=== PATIENT | male | born 1940 | race Caucasian/White ===

== ENCOUNTER 2018-05-28 10:30 | Inpatient (IN) | payer MEDICAID, MEDICARE, OTHER ==
[2018-05-28] VITALS (8 sets, daily range): BP systolic 140–153; BP diastolic 64–72; PULSE 44–95; RESP 18–20; Ht 170.2 cm; Wt 60.3 kg
[~2018-05-28] VITALS: Ht 170.2 cm; Wt 60.3 kg
--- NOTE | 2018-05-28 11:44 | ERD ---
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 Reportedly they were feeding him and his saturations dropped to 87%. Per EMS patient was stable in the field, does not however they needed to bag him to keep his saturations up. Normally the patient does not need a vent and does not need to be bagged. Otherwise history is limited as the patient is nonverbal. ROS Limited as the patient is nonverbal Medications Home Meds Reported Medications Amoxicillin/Potassium Clav* (Augmentin*) 250 Mg/5 Ml Susp.recon, 10 MG PO Q8, #1 BOTTLE STARTED 05-27-18 FOR 7 DAYS 05/28/18 Hydrocodone Bit-Acetaminophen* (Lortab* Liq) 7.5 Mg-325 Mg/15 Ml Solution, 15 ML GTB TID PRN for PAIN, ML 05/28/18 Levothyroxine Sodium* (Levoxyl*) 100 Mcg Tablet, 100 MCG PO BEFORE BREAKFAST, #30 TAB 05/28/18 Tamsulosin Hcl* (Tamsulosin Hcl*) 0.4 Mg Cap.er.24h, 0.4 MG PO HS, CAP 05/28/18 Allergies Allergies: Coded Allergies: No Known Allergy (Unverified , 05/28/18) PMhx/Soc History of Surgery: Yes (Tracheostomy, PEG placement) Anesthesia Reaction: No Hx Neurological Disorder: No Hx Respiratory Disorders: Yes (Laryngeal cancer status post tracheostomy) Hx Cardiac Disorders: No Hx Psychiatric Problems: No Hx Miscellaneous Medical Probl: Yes (Laryngeal cancer, squamous cell carcinoma vocal cord, severe protein calorie malnutrition) Hx Alcohol Use: No Hx Substance Use: No Hx Tobacco Use: No Smoking Status: Never smoker FmHx Unable to obtain Physical Exam Vitals Vital Signs Date Temp Pulse Resp B/P (MAP) Pulse Ox O2 O2 Flow FiO2 Time Delivery Rate 05/28/18 54 20 94 Aerosol 10.0 60 11:04 05/28/18 94 10.0 60 11:04 05/28/18 Bag Valve 10:48 Mask 05/28/18 Non 10:48 Rebreather 05/28/18 97.3 53 20 115/74 90 10:34 (88) Physical Exam Const: No acute distress, chronically ill-appearing. Cachectic Head: Atraumatic Eyes: Normal Conjunctiva ENT: Dry oral mucosa. Normal External Ears, Nose and Mouth. Neck: Tracheostomy in place. Skin changes consistent with radiation treatment. Resp: Rhonchi bilaterally with no wheezing Cardio: Bradycardic with regular rhythm, no murmurs Abd: Soft, non tender, non distended. Normal bowel sounds Skin: No petechiae or rashes Back: No midline or flank tenderness Ext: No cyanosis, or edema Neur: Awake and alert, moving all extremities spontaneously, nonverbal. Appears somewhat confused Psych: Normal Mood and Affect Result Diagram: 05/28/18 1149 05/28/18 1149 Results 24 hrs Laboratory Tests Test 05/28/18 10:37 05/28/18 11:49 05/28/18 12:20 Blood Gas Specimen Blood arterial Source Arterial Blood Date 05/28/2018 11:28:40 AM Drawn Arterial Blood pH 7.510 (Temp corrected) Arterial Blood pCO2 42.1 mmhg (Temp correct) Arterial Blood pO2 58.6 mmHG (Temp corrected) Arterial Blood HCO3 32.8 mmol/L Arterial Blood Base 8.9 mmol/L Excess Arterial Blood 92.0 mmHG Oxygen Saturation Bal Test ACCEPTAB Arterial Blood Gas Right Radial Puncture Site Arterial 0.4 % Blood Carboxyhemoglobin Arterial Blood 0.2 % Methemoglobin Blood Gas A-a O2 322.9 mmHg Differential Oxyhemoglobin Percent 91.4 % Blood Gas Temperature 37.0 C Blood Gas Modality TRACH COLLAR FiO2 60.0 % Blood Gas Notified Whom [place] Blood Gas Notified 05/28/2018 11:38:47 AM Time White Blood Count 19.9 10^3/ul Red Blood Count 4.82 10^6/ul Hemoglobin 14.6 g/dl Hematocrit 44.9 % Mean Corpuscular Volume 93.2 fl Mean Corpuscular 30.3 pg Hemoglobin Mean Corpuscular 32.5 g/dl Hemoglobin Concent Red Cell Distribution 15.6 % Width Platelet Count 237 10^3/UL Mean Platelet Volume 9.4 fl Immature Granulocytes % 0.600 % Neutrophils % 95.6 % Lymphocytes % 2.1 % Monocytes % 1.4 % Eosinophils % 0.1 % Basophils % 0.2 % Nucleated Red Blood 0.0 /100WBC Cells % Immature Granulocytes # 0.110 10^3/ul Neutrophils # 19.1 10^3/ul Lymphocytes # 0.4 10^3/ul Monocytes # 0.3 10^3/ul Eosinophils # 0.0 10^3/ul Basophils # 0.0 10^3/ul Nucleated Red Blood 0.0 10^3/ul Cells # Prothrombin Time 15.5 Sec Prothrombin Time Ratio 1.2 INR International 1.21 Normalized Ratio Activated 25.0 Sec Partial Thromboplast Time Sodium Level 151 mmol/L Potassium Level 2.6 mmol/L Chloride Level 110 mmol/L Carbon Dioxide Level 34 mmol/L Anion Gap 7 Blood Urea Nitrogen 44 mg/dl Creatinine 1.43 mg/dl Est Glomerular Filtrat mL/min Rate mL/min Glucose Level 127 mg/dl POC Venous Lactate 2.1 mmol/L Calcium Level 14.7 mg/dl Troponin I 0.031 ng/ml Urine Color YELLOW Urine Clarity CLEAR Urine pH 5.0 Urine Specific [place] 1.014 Urine Ketones NEGATIVE mg/dL Urine Nitrite NEGATIVE mg/dL Urine Bilirubin NEGATIVE mg/dL Urine Urobilinogen NEGATIVE mg/dL Urine Leukocyte 1+ Eliud/ul Esterase Urine Microscopic RBC 3 /HPF Urine Microscopic WBC 18 /HPF Urine Hemoglobin 1+ mg/dL Urine Glucose NEGATIVE mg/dL Urine Total Protein NEGATIVE mg/dl Current Medications Medications Dose Sig/Genny Start Time Status Last (Trade) Ordered Route PRN Stop Time Admin Dose Reason Admin Sodium 2,400 ml BOLUS OVER 2 05/28/18 DC 05/28/18 Chloride HOURS STAT 11:57 12:02 (NS) IV* 05/28/18 11:58 Vancomycin 250 ml @ ONCE STAT 05/28/18 DC 05/28/18 HCl 125 mls/hr IVPB 11:57 12:47 05/28/18 13:56 Piperacillin 100 ml @ ONCE STAT 05/28/18 DC 05/28/18 Sod/ 200 mls/hr IVPB 11:57 12:02 Tazobactam 05/28/18 Sod 12:26 Potassium 50 ml @ 50 Q1H IVPB 05/28/18 05/28/18 Chloride mls/hr 13:00 13:41 05/28/18 16:59 Magnesium 50 ml @ 25 ONCE ONCE 05/28/18 05/28/18 Sulfate mls/hr IVPB 13:00 13:28 05/28/18 14:59 Ondansetron 4 mg ER BRIDGE 05/28/18 HCl (Zofran PRN IV 13:30 Inj) NAUSEA AND/OR 05/29/18 VOMITING 13:29 650 mg ER BRIDGE 05/28/18 Acetaminophen PRN PO MILD 13:30 (Tylenol PAIN(1-3)OR 05/29/18 Tab) ELEVATED TEMP 13:29 Procedures/MDM EMERGENT LABS AND DIAGNOSTIC STUDIES: Lab Results above were reviewed and interpreted by me. CBC leukocytosis, concerning for infection BMP: Hypercalcemia, hyponatremia, hypokalemia, elevated BUN and creatinine, all consistent with dehydration and malnutrition. Troponin within normal limits, not indicative of cardiac ischemia Lactate elevated, consistent with tissue hypoperfusion and severe sepsis UA: Leukocyte esterase and WBCs, consistent with infection 12-lead EKG was interpreted by Shea Sawyer MD: Atrial flutter at 49 bpm Normal axis Normal intervals Anterior ST abnormality without depressions or elevations No acute ST or T wave changes suggestive of acute ischemia or STEMI. Radiology Results as interpreted by Radiology below were reviewed by SMissy Sawyer MD: Chest x-ray shows no acute abnormalities CT head: Pending Initial Nursing notes reviewed. Previous Medical Records requested via the Electronic Health Record. EMERGENCY DEPARTMENT COURSE / MEDICAL DECISION MAKING: Patient is presenting with desaturation after possible aspiration. Upon presentation his oxygen saturation was 90%. We were initially bagging him but he stabilized and did not require ventilation and was stable on blow-by oxygen. Labs are notable for multiple electrolyte abnormalities for which supplementation was ordered. At this time there does not seem to be any evidence of pneumonia but he was started on broad-spectrum coverage for possible pneumonitis and possible UTI. IV hydration also started. Given he is confused, CT head was ordered and is pending. Patient's infectious symptoms have not stabilized and the patient is at risk of rapid decompensation. The patient will be admitted for careful hydration, antibiotic therapy, and infectious source control. Severe Sepsis Assessment: Infectious Source: UTI, possible lower respiratory tract infection End organ damage indicated by: Lactate > 2.0 mmol/L Acute Resp Failure (sat < 92% w/o oxygen) Severe Sepsis Managment: Blood Cultures X 2 before broad spectrum antibiotics initiated within 3 hours of recognition. 30 ml/kg NS bolus Completed Initial Lactate: 2.1 Repeat Lactate 2.1 Septic Shock Assessment (1 hour post 30 ml/kg fluid bolus): Hypotension (SBP < 90 or 40 mmHg drop, MAP < 65): No Lactic acid > 4.0 no Critical Care Time: 40 minutes Treatments/Evaluations: Close monitoring and treatment of unstable vital signs, cardiorespiratory, and neurologic status, while maintaining tight balance of fluid, respiratory, and cardiac interventions. This time includes discussing the case with the patient and the patients family. This time does not include all procedures stated elsewhere in this record. This time also includes reviewing old records, labs and radiological studies. This time includes examining and re- examining the patient. Additionally, this time also includes arranging care with admitting and consulting physicians. Accepting Care Team: Current data and ongoing care discussed. Time: Time of admission Primary Provider: Dr. Fields Pending studies: CT head Departure Diagnosis: Primary Impression: Altered mental status Altered mental status type: unspecified Qualified Codes: R41.82 - Altered mental status, unspecified Additional Impressions: Acute on chronic respiratory failure with hypoxia Severe dehydration Hypercalcemia Hypokalemia Hypernatremia Renal insufficiency UTI (urinary tract infection) Urinary tract infection type: site unspecified Hematuria presence: without hematuria Qualified Codes: N39.0 - Urinary tract infection, site not specified Condition: Critical MINA SAWYER MD May 28, 2018 11:44
[2018-05-28] MEDS ORDERED: TAMS0.4C2 PO (11:52)
[2018-05-28] MEDS ORDERED: LEVO100T82 PO (11:52)
[2018-05-28] MEDS ORDERED: HYDR15SO8 GTB (11:54)
[2018-05-28] MEDS ORDERED: AMOX250S25 PO (11:55)
[2018-05-28] MEDS ORDERED: PIPER-TAZO 3.375 GM IV (PMX) 100 ML IVPB STA (11:57)
[2018-05-28] MEDS ORDERED: VANCOMYCIN 1 GM (PMX) 250 ML IVPB STA (11:57)
[2018-05-28] MEDS ORDERED: SODIUM CHLORIDE 0.9% 1L BAG IV* STA (11:57)
[2018-05-28] MEDS ORDERED: MAGNESIUM SULFATE 2 GM/50 ML 50 ML IVPB ONE (13:00)
[2018-05-28] MEDS ORDERED: ONDANSETRON 4 MG INJ IV PRN ×2 (13:30→15:30)
[2018-05-28] MEDS ORDERED: ACETAMINOPHEN 325 MG TAB PO PRN (13:30)
[2018-05-28] MEDS: POTASSIUM CHLORIDE 50 ML IVPB SCH ×4 (13:41→17:40)
[2018-05-28] MEDS ORDERED: ACETAMINOPHEN 325/HYDROC 7.5 15 ML CUP GTB PRN (15:30)
[2018-05-28] MEDS ORDERED: morphine 2 MG INJ IV PRN (15:30)
[2018-05-28] MEDS ORDERED: BISACODYL 10 MG SUPP PR PRN (15:30)
[2018-05-28] MEDS: D5W-0.45 NACL + KCL 40 MEQ 1,000 ML IV SCH ×2 (15:30→23:30)
[2018-05-28] MEDS ORDERED: VANCOMYCIN IV PER PHARMACY XX SCH (15:30)
[2018-05-28] MEDS ORDERED: ACETAMINOPHEN 650 MG SUPP PR PRN (15:30)
[2018-05-28] MEDS ORDERED: NACL 0.9% 3 ML SYG IV SCH (15:30)
--- NOTE | 2018-05-28 16:34 | HP ---
Date/Time of Note Date/Time of Note DATE: 05/28/18 TIME: 16:11 Assessment/Plan VTE Prophylaxis SCD applied (from Nsg): Yes Pharmacological prophylaxis: heparin Lines/Catheters IV Catheter Type (from Nrsg): Peripheral IV Central line still needed: Yes Assessment/Plan Assessment/Plan 77-year-old male with: 1. Severe electrolytes abnormalities including hypokalemia, hypomagnesemia, hypophosphatemia, hypercalcemia and hypernatremia all secondary to severe dysphasia, dehydration, decreased p.o. intake in setting of laryngeal carcinoma and no other p.o. access currently. Patient is on D5 half NS with 40 kcl, in addition of repletion with IV KCl, IV K-Phos, IV magnesium sulfate. He is calcium level actually is much improved after hydration, according to the records he also got Pamidronate at [facility] 2 days ago. Monitor electrolytes closely, renal function is already improved on recheck this afternoon. Aggressive repletion of potassium. N.p.o. 2. Severe dysphagia, progressed to dysphagia to even liquid, patient needs his PEG tube replaced. GI has been consulted. In the meantime as already ordered and requested by outpatient oncology, patient will have a CT of the soft tissue neck and chest with IV contrast in order to reevaluate he is laryngeal carcinoma N.p.o., IV fluids. 3. Acute kidney injury secondary to prerenal azotemia and severe dehydration, already resolved post hydration. Monitor renal function and replete electrolytes. 4. Leukocytosis, chest x-ray does not show any infiltrates, unclear if patient has tracheobronchitis or early aspiration pneumonia. Agree with Zosyn. Will monitor labs, if no signs of MRSA, discontinue vancomycin. UA and urine culture also pending. 5. Hypothyroidism: Check thyroid function testing, switch Synthroid to IV form. Patient on 100 mcg p.o. daily which comes up to 50 mcg IV daily. 6. Laryngeal squamous cell carcinoma, concerns for recurrence given the recurring severe dysphagia of the patient. CT soft tissue neck and chest with IV contrast ordered, outpatient [place] [facility] [place] has been working up the patient for possible recurrence of his laryngeal squamous cell CA. 7. 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 Continue to monitor closely. Pulmonary toilet. 8. Severe protein calorie malnutrition, secondary to significantly decreased p.o. intake. Hopefully placement of G-tube and tube feeding will help improve nutritional status. Check prealbumin. 9. Encephalopathy, likely metabolic. CT head which was ordered in ER still pending. Currently we had to put restraints on. Monitor mental status closely. Prophylaxis: Heparin subcu for DVT prophylaxis, Pepcid for GI prophylaxis Disposition: Aggressive electrolytes repletion, n.p.o., IV fluids, GI consult for replacement of a PEG tube. Follow-up on CAT scan soft tissue neck and chest for further evaluation of his laryngeal squamous cell carcinoma. Follow-up on CAT scan head. Result Diagram: 05/28/18 1149 05/28/18 1149 Results 24hrs Laboratory Tests Test 05/28/18 10:37 05/28/18 11:49 05/28/18 12:20 05/28/18 13:39 Blood Gas Blood arterial Specimen Source Arterial Blood 05/28/2018 11:2 Date Drawn 8:40 AM Arterial Blood 7.510 H pH (Temp corrected ) Arterial Blood 42.1 pCO2 (Temp correct) Arterial Blood 58.6 L pO2 (Temp corrected ) Arterial Blood 32.8 H HCO3 Arterial Blood 8.9 H Base Excess Arterial Blood 92.0 L Oxygen Saturati on Bal Test ACCEPTAB Arterial Blood Right Radial Gas Puncture Site Arterial 0.4 Blood Carboxyhe moglobin Arterial Blood 0.2 Methemoglobin Blood Gas A-a 322.9 H O2 Differential Oxyhemoglobin 91.4 L Percent Blood Gas 37.0 Temperature Blood Gas TRACH COLLAR Modality FiO2 60.0 Blood Gas [place] Notified Whom Blood Gas 05/28/2018 11:3 Notified Time 8:47 AM White Blood 19.9 H Count Red Blood Count 4.82 Hemoglobin 14.6 Hematocrit 44.9 Mean 93.2 Corpuscular Volume Mean 30.3 Corpuscular Hemoglobin Mean 32.5 Corpuscular Hemoglobin Conc ent Red Cell 15.6 H Distribution Width Platelet Count 237 Mean Platelet 9.4 Volume Immature 0.600 H Granulocytes % Neutrophils % 95.6 H Lymphocytes % 2.1 L Monocytes % 1.4 Eosinophils % 0.1 Basophils % 0.2 Nucleated Red 0.0 Blood Cells % Immature 0.110 H Granulocytes # Neutrophils # 19.1 H Lymphocytes # 0.4 L Monocytes # 0.3 Eosinophils # 0.0 Basophils # 0.0 Nucleated Red 0.0 Blood Cells # Prothrombin 15.5 H Time Prothrombin 1.2 Time Ratio INR 1.21 International Normalized Rati o Activated 25.0 Partial Thrombo plast Time Sodium Level 151 H Potassium Level 2.6 *L Chloride Level 110 Carbon Dioxide 34 H Level Anion Gap 7 Blood Urea 44 H Nitrogen Creatinine 1.43 H Est Glomerular Filtrat Rate mL/min Glucose Level 127 POC Venous 2.1 *H 2.1 *H Lactate Calcium Level 14.7 *H Troponin I 0.031 Urine Color YELLOW Urine Clarity CLEAR Urine pH 5.0 Urine Specific 1.014 [place] Urine Ketones NEGATIVE Urine Nitrite NEGATIVE Urine Bilirubin NEGATIVE Urine NEGATIVE Urobilinogen Urine Leukocyte 1+ H Esterase Urine 3 Microscopic RBC Urine 18 H Microscopic WBC Urine 1+ H Hemoglobin Urine Glucose NEGATIVE Urine Total NEGATIVE Protein Test 05/28/18 15:33 White Blood 17.3 H Count Red Blood Count 3.44 #L Hemoglobin 10.5 #L Hematocrit 32.9 #L Mean 95.6 Corpuscular Volume Mean 30.5 Corpuscular Hemoglobin Mean 31.9 L Corpuscular Hemoglobin Conc ent Red Cell 15.3 H Distribution Width Platelet Count 165 # Mean Platelet 9.5 Volume Immature 0.400 Granulocytes % Neutrophils % 96.4 H Lymphocytes % 1.5 L Monocytes % 1.6 Eosinophils % 0.0 Basophils % 0.1 Nucleated Red 0.0 Blood Cells % Immature 0.070 H Granulocytes # Neutrophils # 16.7 H Lymphocytes # 0.3 L Monocytes # 0.3 Eosinophils # 0.0 Basophils # 0.0 Nucleated Red 0.0 Blood Cells # HPI/ROS Admit Date/Time Admit Date/Time May 28, 2018 at 13:33 Hx of Present Illness Chief complaint: ALOC, hypoxemia, multiple electrolytes/lab abnormalities History of presenting illness: This is a 77-year-old male with history of hypothyroidism, diagnosis of laryngeal squamous cell carcinoma, status post chemo and radiation, status post surgical resection apparently during the summer with subsequent tracheostomy and PEG tube placement, PEG tube was removed few months ago and patient apparently was home, functional, ambulatory and even driving but over the past 3 weeks has been getting increasingly weak, lethargic, unable to tolerate p.o. Apparently he was able to eat almost regular consiste ncy food when he was discharged home post surgery, PEG tube was removed, subsequently he started having issues tolerating food, significant dysphagia to solid, his was blending old food, and over the past 3 weeks he became dysphagia to liquid also. She describes that when he eats it comes out through the tracheostomy. Patient has a visiting nurse, apparently when the nurse went to see him this past Saturday 05/26, she told the to call 911 because the patient looked significantly sick. Patient was taken to [facility] which is the closest hospital to the residents, records from [facility] does show that the patient has significant leukocytosis, hypernatremia, hypokalemia, significant hypercalcemia and acute kidney injury. He was given IV fluids, pamidronate, IV antibiotics and discharged the next day on oral antibiotics, Augmentin. The reports that patient was being discharged home, she insisted that she could not take care of him therefore they change his discharge to correction facility. At the time of discharge, patient was not tolerating food, again the describes that the liquid he was getting was coming out of his tracheostomy. Upon arrival at the correction facility, he was evaluated and immediately sent via 911 to [facility] due to significant and multiple abnormalities of his labs including severe hypokalemia, significant hypercalcemia, significant leukocytosis, dehydration and inability to feed the patient since he is not tolerating any p.o., he has significant dysphagia. Patient was found to be afebrile here at [facility], WBC was close to 20,000, potassium significantly low at 2.5 also with hypomagnesemia, hypophosphatemia, hypercalcemia, acute kidney injury and significant hypoxemia on arrival. He is on trach collar, IV fluids started. There is definitely signs of severe dysphagia possibly related to recurrence of his laryngeal carcinoma, apparently he is outpatient oncologist was already aware and ordering a CAT scan of his neck and chest to follow-up on his laryngeal cancer. I already have informed the patient's that he will need placement of a PEG tube no matter what for now. This has been ordered with GI consult. We will do the CAT scan of the neck and chest with IV contrast on this admission, a CAT scan of the head is also pending. Patient is admitted to telemetry. ROS Subjective hx not possible: pt non-verbal, other PMH/Family/Social Past Medical History 1. 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 Status post surgical resection of the carcinoma according to the which was done this summer. Status post tracheostomy, PEG tube placement and subsequent PEG tube removal 2. Severe proteincalorie malnutrition 3. Chronic respiratory failure, status post tracheostomy on trach collar 4. Hypothyroidism 5. Recent admission at [facility], 2 days ago, with leukocytosis, severe electrolyte abnormality including hyponatremia, hypokalemia, hypomagnesemia and hypercalcemia and also severe dysphagia was possibly aspiration. Medications Current Medications Potassium Chloride 50 ml @ 50 mls/hr Q1H IVPB Last administered on 05/28/18at 14:43; Admin Dose 50 MLS/HR; Start 05/28/18 at 13:00; Stop 05/28/18 at 16:59 Ondansetron HCl (Zofran Inj) 4 mg ER BRIDGE PRN IV NAUSEA AND/OR VOMITING; Start 05/28/18 at 13:30; Stop 05/29/18 at 13:29 Acetaminophen (Tylenol Tab) 650 mg ER BRIDGE PRN PO MILD PAIN(1-3)OR ELEVATED TEMP; Start 05/28/18 at 13:30; Stop 05/29/18 at 13:29 Coded Allergies: No Known Allergy (Unverified , 05/28/18) Past Surgical History Status post tracheostomy and PEG tube placement this summer with subsequent PEG tube with removal Status post surgery for laryngeal carcinoma this past summer, possibly removal of a mass unclear. Family History Significant Family History: no pertinent family hx Social History Alcohol Use: none Smoking Status: Former smoker (Patient smoked for approximately 17 years and quit approximately 40 years ago) Exam/Review of Systems Vital Signs Vitals Vital Signs Date Temp Pulse Resp B/P (MAP) Pulse Ox O2 O2 Flow FiO2 Time Delivery Rate 05/28/18 69 15:03 05/28/18 98.2 18 140/72 97 14:46 (94) 05/28/18 Trach 5.0 13:51 Collar 05/28/18 80 13:40 Exam Constitutional: alert, oriented (x1 to 2 ), other (Tracheostomy in place) Respiratory: clear to auscultation, other (That is post tracheostomy with trach collar in place, 8 L. Patient is noted to have a growth on his upper chest above the sternum area up to his neck.) Cardiovascular: regular rate and rhythm, nl pulses Gastrointestinal: soft, non-tender Musculoskeletal: nl extremities to inspection Extremities: normal pulses, other (No edema, clubbing or cyanosis) Neurological: CLASSROOM ASSISTANT II-XII intact, confused, other (Status post tracheostomy, currently no PMV, patient unable to talk.) Additional Comments PROCEDURE: XR Chest. CLINICAL INDICATION: Shortness of breath TECHNIQUE: Single portable view of the chest was obtained COMPARISON: No priors for comparison FINDINGS: The trachea is midline. The cardiac silhouette is a large and pulmonary vascularity are within normal limits. There is atherosclerotic calcification of the aortic knob. There is bibasilar atelectasis. Lungs otherwise clear.. The costophrenic angles are sharp. IMPRESSION: 1. Cardiomegaly and atherosclerotic disease. 2. Bibasilar atelectasis. No evidence of acute cardiopulmonary disease. RPTAT: AAPP Physician Jessica Date Time Electronically viewed and signed by Physician Jessica on 05/28/2018 10:55 EKG on admission showing market sinus bradycardia with a ventricular rate of 49 bpm CHRISTIANO RIVERS May 28, 2018 16:31
[2018-05-28] MEDS ORDERED: PIPER-TAZO 3.375 GM IV (PMX) 100 ML IVPB SCH (17:00)
[2018-05-28] MEDS ORDERED: PAMIDRONATE 30 MG in SOD CHLORIDE 0.9% 500 ML IV ONE (17:00)
[2018-05-28] MEDS ORDERED: MAGNESIUM SULFATE 4 GM/100 ML 100 ML IVPB ONE (18:00)
[2018-05-28] MEDS ORDERED: POTASSIUM PHOSPHATE 30 MM in SOD CHLORIDE 0.9% 250 ML IVPB ONE (18:00)
[2018-05-28] MEDS ORDERED: SOD CHLORIDE 0.9% 100 ML ONE (21:43)
[2018-05-28] MEDS ORDERED: IOHEXOL 300MG/ML 150 ML BTL ONE (21:43)
[2018-05-28] MEDS: FAMOTIDINE 20 MG INJ IV SCH (22:45)
[2018-05-28] MEDS: HEPARIN 5,000 UNIT/1 ML VIAL SC SCH (22:45)
[2018-05-28] MEDS: TAMSULOSIN (SR) 0.4 MG CAP PO SCH (22:45)
[2018-05-28] MEDS: PIPER-TAZO 3.375 GM IV (PMX) 100 ML IVPB SCH (22:47)
[2018-05-29] VITALS (16 sets, daily range): BP systolic 120–171; BP diastolic 62–75; PULSE 45–67; RESP 20–22
[2018-05-29] MEDS: VANCOMYCIN 750 MG in SOD CHLORIDE 0.9% 150 ML IVPB SCH ×3 (00:18→23:33)
[2018-05-29] MEDS: D5W-0.45 NACL + KCL 40 MEQ 1,000 ML IV SCH ×3 (04:42→16:20)
[2018-05-29] MEDS: LEVOTHYROXINE 100 MCG VIAL IV SCH (05:26)
[2018-05-29] MEDS: PIPER-TAZO 3.375 GM IV (PMX) 100 ML IVPB SCH ×3 (05:31→21:04)
[2018-05-29] MEDS: HEPARIN 5,000 UNIT/1 ML VIAL SC SCH ×3 (05:32→21:12)
[2018-05-29] MEDS ORDERED: LEVOTHYROXINE 100 MCG TAB PO SCH (07:00)
[2018-05-29] MEDS ORDERED: PHYTONADIONE 10 MG/ML INJ SC ONE (09:00)
[2018-05-29] MEDS: FAMOTIDINE 20 MG INJ IV SCH ×2 (09:12→20:59)
--- NOTE | 2018-05-29 09:15 | CONS ---
Date/Time of Note Date/Time of Note DATE: 05/29/18 TIME: 08:44 Assessment/Plan Assessment/Plan Chief Complaint/Hosp Course Assessment: Laryngeal carcinoma Tracheostomy Dysphagia Recurrent aspirations Leukocytosis Hypokalemia Coagulopathy -INR 1.53 Hypothyroidism Plan: PEG placement tomorrow Vitamin K 10 mg x1 Check INR Correct electrolyte imbalance Patient seen in collaboration with Dr. Fu Consultation Date/Type/Reason Admit Date/Time May 28, 2018 at 13:33 Date of Consultation: May 29, 2018 Type of Consult GI Reason for Consultation Dysphagia/aspirations Hx of Present Illness This is a 77-year-old male with a history of laryngeal squamous cell carcinoma who presents with dysphagia and multiple aspirations. The past medical history includes hypothyroidism, surgical resection of laryngeal carcinoma with ch emotherapy and radiation, history of trach and PEG tube. Previous PEG tube was removed since the patient resumed function few months ago. Recently patient had worsening of the mental status with fluid coming out of tracheostomy tube and causing multiple aspirations with desaturation. [facility] GI was consulted for PEG placement. Chest x-ray is negative for pneumonia but shows atelectasis. There is no signs of nausea, vomiting, hematemesis, hematochezia or fever. Patient has moderate leukocytosis and electrolyte imbalance. Will check the labs today and order INR with vitamin K. Discussed PEG placement with the patient however he is nonverbal and unable to consent. Unable to contact the spouse due to incorrect phone number in the system. Plan is to schedule pack for tomorrow if all the electrolytes can be corrected and INR less than 1.5. Gastrointestinal: no complaints (See HPI) Past Medical History Regional cancer, status post tracheostomy, Medications Current Medications Acetaminophen/ Hydrocodone Bitart (Lortab Liq) 15 ml TID PRN GTB PAIN; Start 05/28/18 at 15:30 Tamsulosin HCl (Flomax) 0.4 mg HS PO ; Start 05/28/18 at 21:00 IV Flush (NS 3 ml) 3 ml PER PROTOCOL IV ; Start 05/28/18 at 15:30 Ondansetron HCl (Zofran Inj) 4 mg Q6H PRN IV NAUSEA AND/OR VOMITING; Start 05/28/18 at 15:30 Acetaminophen (Tylenol Supp) 650 mg Q6H PRN [place] PAIN LEVEL 1-3 OR FEVER; Start 05/28/18 at 15:30 Morphine Sulfate (morphine) 2 mg Q4H PRN IV PAIN LEVEL 7-10; Start 05/28/18 at 15:30 Bisacodyl (Dulcolax Supp) 10 mg DAILY PRN [place] CONSTIPATION; Start 05/28/18 at 15:30 Famotidine (Pepcid Iv) 20 mg Q12 IV Last administered on 05/28/18at 22:45; Admin Dose 20 MG; Start 05/28/18 at 21:00 Heparin Sodium (Porcine) (Heparin (5000 Units/1ml)) 5,000 unit Q8 SC Last adm inistered on 05/29/18at 05:32; Admin Dose 5,000 UNIT; Start 05/28/18 at 22:00 Vancomycin HCl (Vanco Iv Per Pharmacy) VANCOMYCIN PER PHARMACY PER PROTOCOL XX ; Start 05/28/18 at 15:30 Potassium Chloride/Dextrose/ Sod Cl 1,000 ml @ 125 mls/hr Q8H IV Last administered on 05/29/18at 04:42; Admin Dose 125 MLS/HR; Start 05/28/18 at 15:30 Levothyroxine Sodium (Synthroid Iv) 50 mcg DAILY@06 IV Last administered on 05/29/18at 05:26; Admin Dose 50 MCG; Start 05/29/18 at 06:00 Piperacillin Sod/ Tazobactam Sod 100 ml @ 200 mls/hr Q8 IVPB Last administered on 05/29/18at 05:31; Admin Dose 200 MLS/HR; Start 05/28/18 at 22:00 Vancomycin HCl 750 mg/Sodium Chloride 150 ml @ 75 mls/hr Q12H IVPB Last administered on 05/29/18at 00:18; Admin Dose 75 MLS/HR; Start 05/29/18 at 00:00 Allergies: Coded Allergies: No Known Allergy (Unverified , 05/28/18) Past Surgical History Resection of laryngeal cancer Family History Significant Family History: no pertinent family hx Social History Alcohol Use: none Smoking Status: Former smoker (Patient smoked for approximately 17 years and quit approximately 40 years ago) Exam/Review of Systems Vital Signs Vitals Vital Signs Date Temp Pulse Resp B/P (MAP) Pulse Ox O2 O2 Flow FiO2 Time Delivery Rate 05/29/18 100 8.0 35 08:29 05/29/18 48 22 Aerosol 08:05 05/29/18 97.6 153/72 07:06 (99) Intake and Output 05/28/18 05/28/18 05/29/18 1515:00 23:00 07:00 IntakeIntake Total 50 ml 150 ml 1510 ml OutputOutput Total 600 ml 900 ml BalanceBalance 50 ml -450 ml 610 ml Exam PHYSICAL EXAMINATION: GENERAL: Cachectic, chronically ill, nonverbal, tracheostomy in place, alert, in no acute distress SKIN: No lesions, papular rash on the chest wall around tracheostomy. No stigmata chronic liver disease, no evidence of bleeding diathesis LYMPHATIC: No palpable lymphadenopathy. HEAD: Normocephalic, atraumatic, no tenderness. EYES: Pupils equal reactive to light and accommodation, full extraocular movements, sclera clear, non-icteric, no discharge. EARS/NOSE AND THROAT: Ears normal, nose normal, oropharynx normal, oral membranes well hydrated without lesions. NECK: Supple, no masses, thyroid normal, JVP within normal limits, carotids normal without bruits. CHEST: Inspection within normal limits. CARDIOVASCULAR: Heart: Regular rate and rhythm, no murmurs, gallops or rubs. Peripheral pulses present within normal limits, no cyanosis, clubbing or edemas. No pulsatile abdominal mass RESPIRATORY: Lungs clear to auscultation and percussion, no wheezing, no rubs GASTROINTESTINAL AND LIVER: Abdomen: Soft, non tenderness, non-distended, no hernias, no masses, no organomegaly, no ascites, no guarding, no rebound tenderness, normoactive bowel sounds. Rectal: Deferred. GENITOURINARY: Male genitalia within normal limits. Burns catheter in place EXTREMITIES: No cyanosis, clubbing or edema. Medications Medications Current Medications Acetaminophen/ Hydrocodone Bitart (Lortab Liq) 15 ml TID PRN GTB PAIN; Start 05/28/18 at 15:30 Tamsulosin HCl (Flomax) 0.4 mg HS PO ; Start 05/28/18 at 21:00 IV Flush (NS 3 ml) 3 ml PER PROTOCOL IV ; Start 05/28/18 at 15:30 Ondansetron HCl (Zofran Inj) 4 mg Q6H PRN IV NAUSEA AND/OR VOMITING; Start 05/28/18 at 15:30 Acetaminophen (Tylenol Supp) 650 mg Q6H PRN NE PAIN LEVEL 1-3 OR FEVER; Start 05/28/18 at 15:30 Morphine Sulfate (morphine) 2 mg Q4H PRN IV PAIN LEVEL 7-10; Start 05/28/18 at 15:30 Bisacodyl (Dulcolax Supp) 10 mg DAILY PRN [place] CONSTIPATION; Start 05/28/18 at 15:30 Famotidine (Pepcid Iv) 20 mg Q12 IV Last administered on 05/28/18at 22:45; Admin Dose 20 MG; Start 05/28/18 at 21:00 Heparin Sodium (Porcine) (Heparin (5000 Units/1ml)) 5,000 unit Q8 SC Last administered on 05/29/18at 05:32; Admin Dose 5,000 UNIT; Start 05/28/18 at 22:00 Vancomycin HCl (Vanco Iv Per Pharmacy) VANCOMYCIN PER PHARMACY PER PROTOCOL XX ; Start 05/28/18 at 15:30 Potassium Chloride/Dextrose/ Sod Cl 1,000 ml @ 125 mls/hr Q8H IV Last administered on 05/29/18at 04:42; Admin Dose 125 MLS/HR; Start 05/28/18 at 15:30 Levothyroxine Sodium (Synthroid Iv) 50 mcg DAILY@06 IV Last administered on 05/29/18at 05:26; Admin Dose 50 MCG; Start 05/29/18 at 06:00 Piperacillin Sod/ Tazobactam Sod 100 ml @ 200 mls/hr Q8 IVPB Last administered on 05/29/18at 05:31; Admin Dose 200 MLS/HR; Start 05/28/18 at 22:00 Vancomycin HCl 750 mg/Sodium Chloride 150 ml @ 75 mls/hr Q12H IVPB Last administered on 05/29/18at 00:18; Admin Dose 75 MLS/HR; Start 05/29/18 at 00:00 Copies To: CC: AMANDEEP FU MD ; ALBINO PRECIADO NP May 29, 2018 08:54
--- NOTE | 2018-05-29 12:16 | PN ---
Date/Time of Note Date/Time of Note DATE: 05/29/18 TIME: 11:55 Assessment/Plan VTE Prophylaxis Risk score (from [facility])>0 risk: 7 SCD applied (from [facility]): Yes Pharmacological prophylaxis: heparin Pharm contraindication: other (Procedure tomorrow) Lines/Catheters IV Catheter Type (from [facility]): Peripheral IV Assessment/Plan Assessment/Plan 77-year-old male with: 1. Severe electrolytes abnormalities including hypokalemia, hypomagnesemia, hypophosphatemia, hypercalcemia and hypernatremia all secondary to severe dysphasia, dehydration, decreased p.o. intake in setting of laryngeal carcinoma and no other p.o. access currently. Patient is on D5 half NS with 40 kcl, status post electrolyte repletion yesterday, follow-up labs this morning for further repletion as needed. He is calcium level actually is much improved after hydration, according to the records he also got Pamidronate at [facility] this past weekend. Monitor electrolytes closely, replete as needed Follow-up BMP. 2. Severe dysphagia, progressed to dysphagia to even liquid, patient needs his PEG tube replaced. Repeat CT chest and neck with IV contrast overnight he showed recurrence of the tumor likely, GI has been consulted, plan is for placement of a PEG tube likely tomorrow. Patient currently n.p.o. GI has been consulted. N.p.o., IV fluids. 3. Acute kidney injury secondary to prerenal azotemia and severe dehydration, already resolved post hydration. Monitor renal function and replete electrolytes. 4. Leukocytosis, chest x-ray does not show any infiltrates, unclear if patient has tracheobronchitis or early aspiration pneumonia. Continue Zosyn and vancomycin, follow-up on cultures, obtain sputum culture today. Will monitor labs, if no signs of MRSA, discontinue vancomycin. 5. Hypothyroidism: Follow-up thyroid function testing, switch Synthroid to IV form. Patient on 100 mcg p.o. daily which comes up to 50 mcg IV daily. 6. Laryngeal squamous cell carcinoma, concerns for recurrence given the recurring severe dysphagia of the patient. CT soft tissue neck and chest with IV contrast done overnight and again it is seen that the patient does have a mass there, unclear what he had left post surgery, I have informed the patient's that she will be given the CAT scan report and that she can request the images so she can take it to her outpatient oncologist is [place]. Markham [place] [facility] and they can make further decision regarding additional treatment if available and needed. 7. 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 Continue to monitor closely. Pulmonary toilet, antibiotic for possible tracheobronchitis. 8. Severe protein calorie malnutrition, secondary to significantly decreased p.o. intake. Hopefully placement of G-tube tomorrow and tube feeding will help improve nutritional status. Follow-up prealbumin. 9. Encephalopathy, likely metabolic. Monitor mental status closely. CT head negative for acute findings Restraints. Prophylaxis: Heparin subcu for DVT prophylaxis, Pepcid for GI prophylaxis Disposition: Aggressive electrolytes repletion, n.p.o., IV fluids, GI consult for replacement of a PEG tube. Follow-up cultures and adjust antibiotics. PICC line placement for IV access. Result Diagram: 05/29/18 1056 05/28/18 1904 Results 24hrs Laboratory Tests Test 05/28/18 12:20 05/28/18 13:39 05/28/18 15:33 05/28/18 17:02 Urine Color YELLOW Urine Clarity CLEAR Urine pH 5.0 Urine Specific 1.014 [place] Urine Ketones NEGATIVE Urine Nitrite NEGATIVE Urine Bilirubin NEGATIVE Urine NEGATIVE Urobilinogen Urine Leukocyte 1+ H Esterase Urine 3 Microscopic RBC Urine 18 H Microscopic WBC Urine Hemoglobin 1+ H Urine Glucose NEGATIVE Urine Total NEGATIVE Protein POC Venous 2.1 *H Lactate White Blood 17.3 H Count Red Blood Count 3.44 #L Hemoglobin 10.5 #L Hematocrit 32.9 #L Mean Corpuscular 95.6 Volume Mean Corpuscular 30.5 Hemoglobin Mean Corpuscular 31.9 L Hemoglobin Olena nt Red Cell 15.3 H Distribution Width Platelet Count 165 # Mean Platelet 9.5 Volume Immature 0.400 Granulocytes % Neutrophils % 96.4 H Lymphocytes % 1.5 L Monocytes % 1.6 Eosinophils % 0.0 Basophils % 0.1 Nucleated Red 0.0 Blood Cells % Immature 0.070 H Granulocytes # Neutrophils # 16.7 H Lymphocytes # 0.3 L Monocytes # 0.3 Eosinophils # 0.0 Basophils # 0.0 Nucleated Red 0.0 Blood Cells # Prothrombin Time 19.2 #H Prothrombin Time 1.5 Ratio INR 1.58 International Normalized Ratio Sodium Level 151 H Potassium Level 1.6 *L 4.8 # Chloride Level 127 H Carbon Dioxide 19 #L Level Anion Gap 5 Blood Urea 24 #H Nitrogen Creatinine 0.70 Est Glomerular Filtrat Rate mL/min Glucose Level 66 #L Lactic Acid 1.3 Level Uric Acid 4.5 Calcium Level 7.4 #L Phosphorus Level 1.1 L Magnesium Level 1.6 L Creatine Kinase 42 Creatine Kinase 2.8 Index Creatinine 1.18 Kinase MB (Mass) Troponin I < 0.012 Test 05/28/18 19:04 05/28/18 22:46 05/29/18 10:56 Potassium Level 3.0 L Bedside Glucose 120 White Blood 19.8 H Count Red Blood Count 4.28 #L Hemoglobin 13.0 #L Hematocrit 40.1 #L Mean Corpuscular 93.7 Volume Mean Corpuscular 30.4 Hemoglobin Mean Corpuscular 32.4 Hemoglobin Olena nt Red Cell 15.8 H Distribution Width Platelet Count 223 # Mean Platelet 10.6 H Volume Immature 0.500 H Granulocytes % Neutrophils % 95.7 H Lymphocytes % 2.3 L Monocytes % 1.2 Eosinophils % 0.2 Basophils % 0.1 Nucleated Red 0.1 H Blood Cells % Immature 0.090 H Granulocytes # Neutrophils # 18.9 H Lymphocytes # 0.5 L Monocytes # 0.2 L Eosinophils # 0.0 Basophils # 0.0 Nucleated Red 0.0 Blood Cells # Subjective 24 Hr Interval Summary Free Text/Dictation Patient's mental status seems to be improved this morning, electrolyte improved overnight, a.m. labs pending. Still with significant leukocytosis and requiring trach collar. Cultures are pending, sputum culture has been added. He remains hemodynamically stable. Exam/Review of Systems Vital Signs Vitals Vital Signs Date Temp Pulse Resp B/P (MAP) Pulse Ox O2 O2 Flow FiO2 Time Delivery Rate 05/29/18 97.8 53 22 154/75 99 Trach 11:41 (101) Collar 05/29/18 8.0 35 11:25 Intake and Output 05/28/18 05/28/18 05/29/18 1414:59 22:59 06:59 IntakeIntake Total 50 ml 150 ml 1510 ml OutputOutput Total 600 ml 900 ml BalanceBalance 50 ml -450 ml 610 ml Exam Constitutional: alert, oriented Respiratory: other (Status post tracheostomy, on trach collar 8 L. Erythematous and nodular growth on his chest wall stable for) Cardiovascular: regular rate and rhythm, nl pulses Gastrointestinal: soft, non-tender Musculoskeletal: nl extremities to inspection Extremities: normal pulses, other (No edema, clubbing or cyanosis) Neurological: BOILER WATER TESTER II-XII intact, other (Generalized weakness much improved. Mental status much improved.) Medications Medications Current Medications Acetaminophen/ Hydrocodone Bitart (Lortab Liq) 15 ml TID PRN GTB PAIN; Start 05/28/18 at 15:30 Tamsulosin HCl (Flomax) 0.4 mg HS PO ; Start 05/28/18 at 21:00 IV Flush (NS 3 ml) 3 ml PER PROTOCOL IV ; Start 05/28/18 at 15:30 Ondansetron HCl (Zofran Inj) 4 mg Q6H PRN IV NAUSEA AND/OR VOMITING; Start 05/28/18 at 15:30 Acetaminophen (Tylenol Supp) 650 mg Q6H PRN [place] PAIN LEVEL 1-3 OR FEVER; Start 05/28/18 at 15:30 Morphine Sulfate (morphine) 2 mg Q4H PRN IV PAIN LEVEL 7-10; Start 05/28/18 at 15:30 Bisacodyl (Dulcolax Supp) 10 mg DAILY PRN [place] CONSTIPATION; Start 05/28/18 at 15:30 Famotidine (Pepcid Iv) 20 mg Q12 IV Last administered on 05/29/18at 09:12; A dmin Dose 20 MG; Start 05/28/18 at 21:00 Heparin Sodium (Porcine) (Heparin (5000 Units/1ml)) 5,000 unit Q8 SC Last administered on 05/29/18at 05:32; Admin Dose 5,000 UNIT; Start 05/28/18 at 22:00 Vancomycin HCl (Vanco Iv Per Pharmacy) VANCOMYCIN PER PHARMACY PER PROTOCOL XX ; Start 05/28/18 at 15:30 Potassium Chloride/Dextrose/ Sod Cl 1,000 ml @ 125 mls/hr Q8H IV Last administered on 05/29/18at 04:42; Admin Dose 125 MLS/HR; Start 05/28/18 at 15:30 Levothyroxine Sodium (Synthroid Iv) 50 mcg DAILY@06 IV Last administered on 05/29/18at 05:26; Admin Dose 50 MCG; Start 05/29/18 at 06:00 Piperacillin Sod/ Tazobactam Sod 100 ml @ 200 mls/hr Q8 IVPB Last administered on 05/29/18at 05:31; Admin Dose 200 MLS/HR; Start 05/28/18 at 22:00 Vancomycin HCl 750 mg/Sodium Chloride 150 ml @ 75 mls/hr Q12H IVPB Last administered on 05/29/18at 11:24; Admin Dose 75 MLS/HR; Start 05/29/18 at 00:00 Miscellaneous Information (*Rx Drug Level Order Reminder*) VANCO TROUGH @ 2,300 ONCE ONCE XX ; Start 05/29/18 at 23:00; Stop 05/29/18 at 23:01 Lidocaine (Xylocaine 1% (Mpf)) 5 ml ONCE ONCE SC ; Start 05/29/18 at 12:30; Stop 05/29/18 at 12:31 CHRISTIANO RIVERS May 29, 2018 12:08
[2018-05-29] MEDS ORDERED: LIDOCAINE 1% (MPF) 5 ML VIAL SC ONE (12:30)
[2018-05-29] MEDS ORDERED: POTASSIUM PHOSPHATE 30 MM in SOD CHLORIDE 0.9% 250 ML IVPB ONE (20:30)
[2018-05-29] MEDS: POTASSIUM CHLORIDE 40 MEQ in DEXTROSE 5% 1,000 ML IV SCH (20:46)
[2018-05-29] MEDS: POTASSIUM CHLORIDE 100 ML IVPB SCH ×2 (20:51→23:34)
[2018-05-29] MEDS: TAMSULOSIN (SR) 0.4 MG CAP PO SCH (21:00)
[2018-05-30] VITALS (28 sets, daily range): BP systolic 142–185; BP diastolic 65–81; PULSE 52–81; RESP 14–22
[2018-05-30] MEDS: LEVOTHYROXINE 100 MCG VIAL IV SCH (05:32)
[2018-05-30] MEDS: PIPER-TAZO 3.375 GM IV (PMX) 100 ML IVPB SCH ×3 (05:35→21:33)
[2018-05-30] MEDS: POTASSIUM CHLORIDE 40 MEQ in DEXTROSE 5% 1,000 ML IV SCH ×2 (05:42→18:44)
[2018-05-30] MEDS: HEPARIN 5,000 UNIT/1 ML VIAL SC SCH (06:33)
[2018-05-30] MEDS ORDERED: PROPOFOL 200 MG INJ ONE (07:00)
[2018-05-30] MEDS: FAMOTIDINE 20 MG INJ IV SCH ×2 (09:29→21:32)
--- NOTE | 2018-05-30 10:09 | PN ---
Date/Time of Note Date/Time of Note DATE: 05/30/18 TIME: 09:57 Assessment/Plan VTE Prophylaxis Risk score (from [facility])>0 risk: 8 SCD applied (from [facility] [place] [place]): Yes Pharmacological prophylaxis: heparin (holding for procedure today ) Lines/Catheters IV Catheter Type (from [facility]): PICC Line Central line still needed: Yes (For IV access, needs to be replaced.) Urinary Cath still in place: Yes Reason Cath still needed: other (indicate) (incontinent, bed bound ) Assessment/Plan Assessment/Plan 77-year-old male with: 1. Severe electrolytes abnormalities including hypokalemia, hypomagnesemia, hypophosphatemia, hypercalcemia and hypernatremia all secondary to severe dysphasia, dehydration, decreased p.o. intake in setting of laryngeal carcinoma and no other p.o. access currently. Hypophosphatemia, hypomagnesemia and hypokalemia resolved for now. Still hypernatremic and with hypercalcemia but difficult IV access apparently overnight. Patient has been changed to D5W, once PEG tube placed we can put him on free water. He is calcium level actually is much improved after hydration, according to the records he also got Pamidronate at [facility] this past weekend. May have to repeat pamidronate as needed. Monitor electrolytes closely, replete as needed Follow-up BMP. 2. Severe dysphagia, progressed to dysphagia to even liquid, patient needs his PEG tube replaced. Repeat CT chest and neck with IV contrast overnight he show ed recurrence of the tumor likely, GI has been consulted, plan is for placement of a PEG tube today. Patient currently n.p.o. GI has been consulted. N.p.o., IV fluids. 3. Acute kidney injury secondary to prerenal azotemia and severe dehydration, already resolved post hydration. Monitor renal function and correcting electrolytes. 4. Leukocytosis, chest x-ray does not show any infiltrates, unclear if patient has tracheobronchitis or early aspiration pneumonia. Still persistent leukocytosis Continue Zosyn and vancomycin, follow-up on cultures including sputum culture. Will monitor labs, if no signs of MRSA, discontinue vancomycin. 5. Hypothyroidism: Significantly hypothyroid likely due to the fact that he was unable to take his Synthroid. Now on IV Synthroid while n.p.o. Patient on 100 mcg p.o. daily which comes up to 50 mcg IV daily. 6. Laryngeal squamous cell carcinoma, concerns for recurrence given the recurring severe dysphagia of the patient. CT soft tissue neck and chest with IV contrast done overnight and again it is seen that the patient does have a mass there, unclear what he had left post surgery, I have informed the patient's that she will be given the CAT scan report and that she can request the images so she can take it to her outpatient oncologist is Dr. Markham from [facility] [place] [facility] and they can make further decision regarding additional treatment if a vailable and needed. 7. 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 Continue to monitor closely. Pulmonary toilet, antibiotic for possible tracheobronchitis. Follow-up sputum cultures 8. Severe protein calorie malnutrition, secondary to significantly decreased p.o. intake. Low prealbumin. Hopefully placement of G-tube tomorrow and tube feeding will help improve nutritional status. 9. Encephalopathy, likely metabolic. Monitor mental status closely. CT head negative for acute findings Restraints. Prophylaxis: Heparin subcu for DVT prophylaxis, Pepcid for GI prophylaxis Disposition: Aggressive electrolytes repletion, n.p.o., IV fluids, GI consult for replacement of a PEG tube today. Follow-up cultures and adjust antibiotics. PICC line re-placement for IV access. Result Diagram: 05/30/1851805/30/18 0519 Results 24hrs Laboratory Tests Test 05/29/18 10:56 05/29/18 18:19 05/29/18 23:06 05/30/18 05:19 White Blood 19.8 H 25.3 #H Count Red Blood Count 4.28 #L 4.18 L Hemoglobin 13.0 #L 12.6 L Hematocrit 40.1 #L 39.0 L Mean Corpuscular 93.7 93.3 Volume Mean Corpuscular 30.4 30.1 Hemoglobin Mean Corpuscular 32.4 32.3 Hemoglobin Olena nt Red Cell 15.8 H 15.6 H Distribution Width Platelet Count 223 # 191 Mean Platelet 10.6 H 9.9 Volume Immature 0.500 H 0.800 H Granulocytes % Neutrophils % 95.7 H 93.1 H Lymphocytes % 2.3 L 2.9 L Monocytes % 1.2 2.9 Eosinophils % 0.2 0.2 Basophils % 0.1 0.1 Nucleated Red 0.1 H 0.0 Blood Cells % Immature 0.090 H 0.210 H Granulocytes # Neutrophils # 18.9 H 23.5 H Lymphocytes # 0.5 L 0.7 L Monocytes # 0.2 L 0.7 Eosinophils # 0.0 0.1 Basophils # 0.0 0.0 Nucleated Red 0.0 0.0 Blood Cells # Sodium Level 155 H 153 H 156 H Potassium Level 3.4 L 2.9 *L 3.9 Chloride Level 115 H 119 H 120 H Carbon Dioxide 29 # 28 29 Level Anion Gap 11 6 7 Blood Urea 32 H 29 H 27 H Nitrogen Creatinine 1.30 H 1.20 1.24 Est Glomerular Filtrat Rate mL/min Glucose Level 194 # 137 # 130 Calcium Level 12.2 #H 11.5 H 11.4 H Magnesium Level 3.1 H 2.6 H Total Bilirubin 0.3 Direct Bilirubin 0.00 Indirect 0.3 Bilirubin Aspartate Amino 33 Transf (AST/SGOT ) Alanine 32 Aminotransferase (ALT/SGPT) Alkaline 88 Phosphatase Total Protein 6.2 Albumin 3.1 L Globulin 3.10 Albumin/Globulin 1.00 Ratio Prealbumin 8.2 L Thyroid 36.600 H Stimulating Hormone (TSH) Free Thyroxine 0.28 L Phosphorus Level 1.6 L 2.8 Vancomycin Level 17.4 Trough Prothrombin Time 15.2 #H Prothrombin Time 1.2 Ratio INR 1.18 International Normalized Ratio Activated 29.5 Partial Thrombop last Time Exam/Review of Systems Vital Signs Vitals Vital Signs Date Temp Pulse Resp B/P (MAP) Pulse Ox O2 O2 Flow FiO2 Time Delivery Rate 05/30/18 59 09:03 05/30/18 98.2 20 152/75 99 Trach 07:10 (100) Collar 05/30/18 8.0 35 05:47 Intake and Output 05/29/18 05/29/18 05/30/18 1414:59 22:59 06:59 IntakeIntake Total 250 ml 1300 ml 1110 ml OutputOutput Total 1300 ml 1450 ml BalanceBalance 250 ml 0 ml -340 ml Medications Medications Current Medications Acetaminophen/ Hydrocodone Bitart (Lortab Liq) 15 ml TID PRN GTB PAIN; Start 05/28/18 at 15:30 Tamsulosin HCl (Flomax) 0.4 mg HS PO ; Start 05/28/18 at 21:00 IV Flush (NS 3 ml) 3 ml PER PROTOCOL IV ; Start 05/28/18 at 15:30 Ondansetron HCl (Zofran Inj) 4 mg Q6H PRN IV NAUSEA AND/OR VOMITING; Start 05/28/18 at 15:30 Acetaminophen (Tylenol Supp) 650 mg Q6H PRN [place] PAIN LEVEL 1-3 OR FEVER; Start 05/28/18 at 15:30 Morphine Sulfate (morphine) 2 mg Q4H PRN IV PAIN LEVEL 7-10; Start 05/28/18 at 15:30 Bisacodyl (Dulcolax Supp) 10 mg DAILY PRN [place] CONSTIPATION; Start 05/28/18 at 15:30 Famotidine (Pepcid Iv) 20 mg Q12 IV Last administered on 05/30/18at 09:29; Admin Dose 20 MG; Start 05/28/18 at 21:00 Heparin Sodium (Porcine) (Heparin (5000 Units/1ml)) 5,000 unit Q8 SC Last administered on 05/30/18at 06:33; Admin Dose 5,000 UNIT; Start 05/28/18 at 22:00 Vancomycin HCl (Vanco Iv Per Pharmacy) VANCOMYCIN PER PHARMACY PER PROTOCOL XX ; Start 05/28/18 at 15:30 Levothyroxine Sodium (Synthroid Iv) 50 mcg DAILY@06 IV Last administered on 05/30/18at 05:32; Admin Dose 50 MCG; Start 05/29/18 at 06:00 Piperacillin Sod/ Tazobactam Sod 100 ml @ 200 mls/hr Q8 IVPB Last administered on 05/30/18at 05:35; Admin Dose 200 MLS/HR; Start 05/28/18 at 22:00 Vancomycin HCl 750 mg/Sodium Chloride 150 ml @ 75 mls/hr Q12H IVPB Last administered on 05/29/18at 23:33; Admin Dose 75 MLS/HR; Start 05/29/18 at 00:00 Potassium Chloride 40 meq/ Dextrose 1,020 ml @ 100 mls/hr [id number] IV Last administered on 05/29/18at 20:46; Admin Dose 100 MLS/HR; Start 05/29/18 at 20:30 CHRISTIANO RIVERS May 30, 2018 10:08
[2018-05-30] MEDS ORDERED: LIDOCAINE 1% (MPF) 5 ML VIAL SC ONE (11:00)
--- NOTE | 2018-05-30 14:44 | HPN ---
Date/Time of Note Date/Time of Note DATE: 05/30/18 TIME: 14:44 Interval H&P Admission Note Pt. seen H&P reviewed: No system changes AMANDEEP TUCKER MD May 30, 2018 14:44
[2018-05-30] MEDS ORDERED: PROPOFOL 20 ML ONE (15:02)
[2018-05-30] MEDS ORDERED: CEFAZOLIN 2 GM/50 ML (PMX) 50 ML IVPB ONE (15:03)
[2018-05-30] MEDS: VANCOMYCIN 500 MG (PMX) 100 ML IVPB SCH ×2 (18:43→23:34)
[2018-05-30] MEDS: TAMSULOSIN (SR) 0.4 MG CAP PO SCH (21:00)
[2018-05-31] VITALS (11 sets, daily range): BP systolic 146–168; BP diastolic 66–79; PULSE 53–70; RESP 18–20
[2018-05-31] MEDS: POTASSIUM CHLORIDE 40 MEQ in DEXTROSE 5% 1,000 ML IV SCH ×2 (03:06→05:24)
[2018-05-31] MEDS: LEVOTHYROXINE 100 MCG VIAL IV SCH (05:20)
[2018-05-31] MEDS: PIPER-TAZO 3.375 GM IV (PMX) 100 ML IVPB SCH ×3 (05:23→21:44)
[2018-05-31] MEDS: FAMOTIDINE 20 MG INJ IV SCH ×2 (08:50→21:44)
[2018-05-31] MEDS ORDERED: POTASSIUM PHOSPHATE 30 MM in SOD CHLORIDE 0.9% 250 ML IVPB ONE (10:00)
--- NOTE | 2018-05-31 10:34 | PN ---
Date/Time of Note Date/Time of Note DATE: 05/31/18 TIME: 10:25 Assessment/Plan VTE Prophylaxis Risk score (from Nsg)>0 risk: 12 SCD applied (from Ns): Yes Pharmacological prophylaxis: heparin Lines/Catheters IV Catheter Type (from Nrsg): PICC Line Central line still needed: Yes (For IV access) Urinary Cath still in place: Yes Reason Cath still needed: other (indicate) (Strict I's and O's) Assessment/Plan Assessment/Plan 77-year-old male with: 1. Severe electrolytes abnormalities including hypokalemia, hypomagnesemia, hypophosphatemia, hypercalcemia and hypernatremia all secondary to severe dysphasia, dehydration, decreased p.o. intake in setting of laryngeal carcinoma and no other p.o. access currently. Hypophosphatemia, hypomagnesemia and hypokalemia resolved for now. Still hypernatremic and hypercalcemic, status post PEG tube, will start free water and DC IV fluids. His calcium level actually is much improved after hydration, according to the records he also got Pamidronate at [facility] this past weekend. May have to repeat pamidronate as needed. Monitor electrolytes closely, replete as needed Follow-up BMP. 2. Severe dysphagia, progressed to dysphagia to even liquid, S/P PEG tube placement. Tube feeding and free water started. Repeat CT chest and neck with IV contrast overnight he showed recurrence of the tumor likely. 3. Acute kidney injury secondary to prerenal azotemia and severe dehydration, already resolved post hydration. Monitor renal function and correcting electrolytes. 4. Leukocytosis, chest x-ray does not show any infiltrates, unclear if patient has tracheobronchitis or early aspiration pneumonia. Still persistent leukocytosis Continue Zosyn and vancomycin, follow-up on cultures including sputum culture. Culture still pending. Slight improvement of leukocytosis today. Will monitor labs. 5. Hypothyroidism: Significantly hypothyroid likely due to the fact that he was unable to take his Synthroid. Now on IV Synthroid, will switch back to p.o. Synthroid once more stable. Patient now has a PEG tube. 6. Laryngeal squamous cell carcinoma, concerns for recurrence given the recurring severe dysphagia of the patient. CT soft tissue neck and chest with IV contrast done overnight and again it is seen that the patient does have a mass there, unclear what he had left post surgery, I have informed the patient's that she will be given the CAT scan report and that she can request the images so she can take it to her outpatient oncologist is Dr. Markham from [facility] [place] and they can make further decision regarding additional treatment if available and needed. 7. 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 Continue to monitor closely. Pulmonary toilet, antibiotic for possible tracheobronchitis. Follow-up sputum cultures 8. Severe protein calorie malnutrition, secondary to significantly decreased p.o. intake. Low prealbumin. Status post PEG tube placement, tube feeding started. Will have nutrition consult for further adjustment of tube feedings to improve nutritional status. 9. Encephalopathy, likely metabolic. Monitor mental status closely. CT head negative for acute findings Restraints. Prophylaxis: Heparin subcu for DVT prophylaxis, Pepcid for GI prophylaxis Disposition: Aggressive electrolytes repletion, status post PEG, tube feedings, free water, monitor electrolytes. Follow-up cultures and adjust antibiotics. PICC for IV access. Result Diagram: 05/31/1833 05/31/1833 Results 24hrs Laboratory Tests Test 05/31/18 05:33 White Blood Count 20.3 H Red Blood Count 3.90 L Hemoglobin 11.8 L Hematocrit 36.3 L Mean Corpuscular Volume 93.1 Mean Corpuscular Hemoglobin 30.3 Mean Corpuscular Hemoglobin Concent 32.5 Red Cell Distribution Width 15.9 H Platelet Count 192 Mean Platelet Volume 10.1 Immature Granulocytes % 0.700 H Neutrophils % 93.0 H Lymphocytes % 3.2 L Monocytes % 2.6 Eosinophils % 0.4 Basophils % 0.1 Nucleated Red Blood Cells % 0.0 Immature Granulocytes # 0.140 H Neutrophils # 18.9 H Lymphocytes # 0.7 L Monocytes # 0.5 Eosinophils # 0.1 Basophils # 0.0 Nucleated Red Blood Cells # 0.0 Sodium Level 155 H Potassium Level 3.4 L Chloride Level 119 H Carbon Dioxide Level 28 Anion Gap 8 Blood Urea Nitrogen 23 H Creatinine 1.14 Est Glomerular Filtrat Rate mL/min Glucose Level 136 Calcium Level 10.5 H Phosphorus Level 2.2 L Magnesium Level 2.2 Subjective 24 Hr Interval Summary Free Text/Dictation Status post PEG tube, still hyponatremic and hypercalcemic, free water to be st arted. Tube feedings to be adjusted. Still with persistent leukocytosis, slightly improved today. Exam/Review of Systems Vital Signs Vitals Vital Signs Date Temp Pulse Resp B/P (MAP) Pulse Ox O2 O2 Flow FiO2 Time Delivery Rate 05/31/18 58 08:44 05/31/18 98.1 18 168/77 99 08:04 (107) 05/31/18 Trach 5.0 05:59 Collar 05/31/18 28 03:05 Intake and Output 05/30/18 05/30/18 05/31/18 1515:00 23:00 07:00 IntakeIntake Total 0 ml 50 ml 1320 ml OutputOutput Total 1200 ml 1250 ml BalanceBalance 0 ml -1150 ml 70 ml Exam Constitutional: alert, oriented, frail Respiratory: normal air movement (On trach collar 8 L), congested cough, other (Large amount of secretion, yellow from tracheostomy) Cardiovascular: regular rate and rhythm, nl pulses Gastrointestinal: soft, non-tender Genitourinary - Male: other (Burns catheter in place) Musculoskeletal: nl extremities to inspection Extremities: normal pulses, other (No edema, clubbing or cyanosis) Neurological: [employer] II-XII intact, confused (at times), other (Generalized weakness) Medications Medications Current Medications Acetaminophen/ Hydrocodone Bitart (Lortab Liq) 15 ml TID PRN GTB PAIN; Start 05/28/18 at 15:30 Tamsulosin HCl (Flomax) 0.4 mg HS PO ; Start 05/28/18 at 21:00 IV Flush (NS 3 ml) 3 ml PER PROTOCOL IV ; Start 05/28/18 at 15:30 Ondansetron HCl (Zofran Inj) 4 mg Q6H PRN IV NAUSEA AND/OR VOMITING; Start 05/28/18 at 15:30 Acetaminophen (Tylenol Supp) 650 mg Q6H PRN [place] PAIN LEVEL 1-3 OR FEVER; Start 05/28/18 at 15:30 Morphine Sulfate (morphine) 2 mg Q4H PRN IV PAIN LEVEL 7-10; Start 05/28/18 at 15:30 Bisacodyl (Dulcolax Supp) 10 mg DAILY PRN [place] CONSTIPATION; Start 05/28/18 at 15:30 Famotidine (Pepcid Iv) 20 mg Q12 IV Last administered on 05/31/18at 08:50; Admin Dose 20 MG; Start 05/28/18 at 21:00 Heparin Sodium (Porcine) (Heparin (5000 Units/1ml)) 5,000 unit Q8 SC Last administered on 05/30/18at 06:33; Admin Dose 5,000 UNIT; Start 05/28/18 at 22:00 Vancomycin HCl (Vanco Iv Per Pharmacy) VANCOMYCIN PER PHARMACY PER PROTOCOL XX ; Start 05/28/18 at 15:30 Levothyroxine Sodium (Synthroid Iv) 50 mcg DAILY@06 IV Last administered on 05/31/18at 05:20; Admin Dose 50 MCG; Start 05/29/18 at 06:00 Piperacillin Sod/ Tazobactam Sod 100 ml @ 200 mls/hr Q8 IVPB Last administered on 05/31/18at 05:23; Admin Dose 200 MLS/HR; Start 05/28/18 at 22:00 Vancomycin HCl 100 ml @ 100 mls/hr Q12H IVPB Last administered on 05/30/18at 23:34; Admin Dose 100 MLS/HR; Start 05/30/18 at 12:00 Potassium Phosphate 30 mm/ Sodium Chloride 260 ml @ 65 mls/hr ONCE ONCE IVPB ; Start 05/31/18 at 10:00; Stop 05/31/18 at 13:59 CHRISTIANO RIVERS May 31, 2018 10:34
[2018-05-31] MEDS: VANCOMYCIN 500 MG (PMX) 100 ML IVPB SCH (11:34)
--- NOTE | 2018-05-31 13:19 | PN ---
Date/Time of Note Date/Time of Note DATE: 05/31/18 TIME: 13:13 Assessment/Plan VTE Prophylaxis Risk score (from Nsg)>0 risk: 12 SCD applied (from Nsg): Yes Pharmacological prophylaxis: other (scds) Lines/Catheters IV Catheter Type (from Nrsg): PICC Line Central line still needed: Yes (meds) Urinary Cath still in place: Yes Reason Cath still needed: other (indicate) (monitor output) Assessment/Plan Hospital Course Assessment: Laryngeal carcinoma Tracheostomy Dysphagia s/p PEG 05/30/18 Recurrent aspirations Leukocytosis Hypokalemia Coagulopathy -INR 1.53 Hypothyroidism Plan: TF to goal Continue PEG care BID GI will sign off but will be available upon reconsult Patient seen in collaboration with Dr. Fu Subjective: Course reviewed with nursing staff Patient interviewed and examined All labs, imaging and other results reviewed The patient tolerating TF well, no over night events GI will sign off but will be available upon reconsult as needed. PHYSICAL EXAMINATION: GENERAL: Cachectic, chronically ill, nonverbal, tracheostomy in place, alert, in no acute distress SKIN: No lesions, papular rash on the chest wall around tracheostomy. No stigmata chronic liver disease, no evidence of bleeding diathesis CARDIOVASCULAR: Heart: Regular rate and rhythm RESPIRATORY: Lungs clear to auscultation GASTROINTESTINAL AND LIVER: Abdomen: Soft, non tenderness, non-distended, no hernias, no masses, no organomegaly, no ascites, no guarding, no rebound tenderness, normoactive bowel sounds. Rectal: Deferred. GENITOURINARY: Male genitalia within normal limits. Burns catheter in place EXTREMITIES: No cyanosis, clubbing or edema. Result Diagram: 05/31/18 0533 05/31/18 0533 Results 24hrs Laboratory Tests Test 05/31/18 05:33 White Blood Count 20.3 H Red Blood Count 3.90 L Hemoglobin 11.8 L Hematocrit 36.3 L Mean Corpuscular Volume 93.1 Mean Corpuscular Hemoglobin 30.3 Mean Corpuscular Hemoglobin Concent 32.5 Red Cell Distribution Width 15.9 H Platelet Count 192 Mean Platelet Volume 10.1 Immature Granulocytes % 0.700 H Neutrophils % 93.0 H Lymphocytes % 3.2 L Monocytes % 2.6 Eosinophils % 0.4 Basophils % 0.1 Nucleated Red Blood Cells % 0.0 Immature Granulocytes # 0.140 H Neutrophils # 18.9 H Lymphocytes # 0.7 L Monocytes # 0.5 Eosinophils # 0.1 Basophils # 0.0 Nucleated Red Blood Cells # 0.0 Sodium Level 155 H Potassium Level 3.4 L Chloride Level 119 H Carbon Dioxide Level 28 Anion Gap 8 Blood Urea Nitrogen 23 H Creatinine 1.14 Est Glomerular Filtrat Rate mL/min Glucose Level 136 Calcium Level 10.5 H Phosphorus Level 2.2 L Magnesium Level 2.2 Exam/Review of Systems Vital Signs Vitals Vital Signs Date Temp Pulse Resp B/P (MAP) Pulse Ox O2 O2 Flow FiO2 Time Delivery Rate 05/31/18 98.4 58 18 157/66 95 11:20 (96) 05/31/18 Trach 5.0 05:59 Collar 05/31/18 28 03:05 Intake and Output 05/30/18 05/30/18 05/31/18 1515:00 23:00 07:00 IntakeIntake Total 0 ml 50 ml 1320 ml OutputOutput Total 1200 ml 1250 ml BalanceBalance 0 ml -1150 ml 70 ml Medications Medications Current Medications Acetaminophen/ Hydrocodone Bitart (Lortab Liq) 15 ml TID PRN GTB PAIN; Start 05/28/18 at 15:30 Tamsulosin HCl (Flomax) 0.4 mg HS PO ; Start 05/28/18 at 21:00 IV Flush (NS 3 ml) 3 ml PER PROTOCOL IV ; Start 05/28/18 at 15:30 Ondansetron HCl (Zofran Inj) 4 mg Q6H PRN IV NAUSEA AND/OR VOMITING; Start 05/28/18 at 15:30 Acetaminophen (Tylenol Supp) 650 mg Q6H PRN [place] PAIN LEVEL 1-3 OR FEVER; Start 05/28/18 at 15:30 Morphine Sulfate (morphine) 2 mg Q4H PRN IV PAIN LEVEL 7-10; Start 05/28/18 at 15:30 Bisacodyl (Dulcolax Supp) 10 mg DAILY PRN [place] CONSTIPATION; Start 05/28/18 at 15:30 Famotidine (Pepcid Iv) 20 mg Q12 IV Last administered on 05/31/18at 08:50; Admin Dose 20 MG; Start 05/28/18 at 21:00 Heparin Sodium (Porcine) (Heparin (5000 Units/1ml)) 5,000 unit Q8 SC Last administered on 05/30/18at 06:33; Admin Dose 5,000 UNIT; Start 05/28/18 at 22:00 Vancomycin HCl (Vanco Iv Per Pharmacy) VANCOMYCIN PER PHARMACY PER PROTOCOL XX ; Start 05/28/18 at 15:30 Levothyroxine Sodium (Synthroid Iv) 50 mcg DAILY@06 IV Last administered on 05/31/18at 05:20; Admin Dose 50 MCG; Start 05/29/18 at 06:00 Piperacillin Sod/ Tazobactam Sod 100 ml @ 200 mls/hr Q8 IVPB Last administered on 05/31/18at 05:23; Admin Dose 200 MLS/HR; Start 05/28/18 at 22:00 Vancomycin HCl 100 ml @ 100 mls/hr Q12H IVPB Last administered on 05/31/18at 11:34; Admin Dose 100 MLS/HR; Start 05/30/18 at 12:00 Potassium Phosphate 30 mm/ Sodium Chloride 260 ml @ 65 mls/hr ONCE ONCE IVPB Last administered on 05/31/18at 11:15; Admin Dose 65 MLS/HR; Start 05/31/18 at 10:00; Stop 05/31/18 at 13:59 JAD MEDRANO May 31, 2018 13:19
[2018-05-31] MEDS: HEPARIN 5,000 UNIT/1 ML VIAL SC SCH ×2 (14:56→21:46)
[2018-05-31] MEDS: TAMSULOSIN (SR) 0.4 MG CAP PO SCH (21:44)
[2018-06-01] VITALS (14 sets, daily range): BP systolic 134–161; BP diastolic 68–78; PULSE 64–103; RESP 17–18
[2018-06-01] MEDS: VANCOMYCIN 500 MG (PMX) 100 ML IVPB SCH ×2 (00:59→11:29)
[2018-06-01] MEDS: LEVOTHYROXINE 100 MCG VIAL IV SCH (06:17)
[2018-06-01] MEDS: PIPER-TAZO 3.375 GM IV (PMX) 100 ML IVPB SCH ×3 (06:18→21:32)
[2018-06-01] MEDS: HEPARIN 5,000 UNIT/1 ML VIAL SC SCH ×3 (06:19→21:33)
[2018-06-01] MEDS ORDERED: POTASSIUM CHLORIDE 20 MEQ POWDER FOR ORAL SOLN GTB ONE (09:00)
[2018-06-01] MEDS: FAMOTIDINE 20 MG INJ IV SCH ×2 (09:36→21:31)
--- NOTE | 2018-06-01 10:08 | PN ---
Date/Time of Note Date/Time of Note DATE: 06/01/18 TIME: 09:57 Assessment/Plan VTE Prophylaxis Risk score (from Ns)>0 risk: 11 SCD applied (from Ns): Yes Pharmacological prophylaxis: heparin Lines/Catheters IV Catheter Type (from Nrsg): PICC Line Central line still needed: Yes (For IV access) Urinary Cath still in place: Yes Reason Cath still needed: other (indicate) (Strict I's and O's) Assessment/Plan Assessment/Plan 77-year-old male with: 1. Severe electrolytes abnormalities including hypokalemia, hypomagnesemia, hypophosphatemia, hypercalcemia and hypernatremia all secondary to severe dysphasia, dehydration, decreased p.o. intake in setting of laryngeal carcinoma and no other p.o. access currently. Still repeating electrolytes, now via PEG tube. Hyponatremia improving now. Continue current care. He is calcium level actually is much improved after hydration, according to the records he also got Pamidronate at [facility] this past weekend. May have to repeat pamidronate as needed. Monitor electrolytes closely, replete as needed Follow-up BMP. 2. Severe dysphagia, progressed to dysphagia to even liquid, patient needs his PEG tube replaced. Repeat CT chest and neck with IV contrast overnight he show ed recurrence of the tumor likely, GI has been consulted, S/p PEG tube placement, tube feeding on board along with free water. Tolerated well so far. Appreciate GI assistance. 3. Acute kidney injury secondary to prerenal azotemia and severe dehydration, already resolved post hydration. Monitor renal function and correcting electrolytes. 4. Leukocytosis, chest x-ray does not show any infiltrates, unclear if patient has tracheobronchitis or early aspiration pneumonia. Still persistent l eukocytosis Continue Zosyn and vancomycin, follow-up on cultures including sputum culture. Will monitor labs, if no signs of MRSA, discontinue vancomycin. 5. Hypothyroidism: Significantly hypothyroid likely due to the fact that he was unable to take his Synthroid. We will switch back to Synthroid via PEG tube. Patient was on 100 mcg daily 6. Laryngeal squamous cell carcinoma, concerns for recurrence given the recurring severe dysphagia of the patient. CT soft tissue neck and chest with I V contrast done overnight and again it is seen that the patient does have a mass there, unclear what he had left post surgery, I have informed the patient's that she will be given the CAT scan report and that she can request the images so she can take it to her outpatient oncologist is Dr. Markham from [facility] [place] and they can make further decision regarding additional treatment if available and n eeded. 7. 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 Continue to monitor closely. Pulmonary toilet, antibiotic for possible tracheobronchitis. Follow-up sputum cultures 8. Severe protein calorie malnutrition, secondary to significantly decreased p.o. intake. Low prealbumin. Now on tube feedings, which should help nutritional status. 9. Encephalopathy, likely metabolic. Monitor mental status closely. CT head negative for acute findings Restraints. Prophylaxis: Heparin subcu for DVT prophylaxis, Pepcid for GI prophylaxis Disposition: Status post PEG tube placement, now can use p.o. access and hyponatremia improving. Will continue current tube feedings along with free water and electrolyte replacement aggressively via PEG tube. Additional IV replacement as needed. Follow-up cultures and adjust antibiotics. Status post PICC line. Result Diagram: 06/01/1831 06/01/18530 Results 24hrs Laboratory Tests Test 05/31/18 23:30 06/01/18 05:31 06/01/18 07:11 Vancomycin Level Trough 20.3 *H White Blood Count 22.4 H Red Blood Count 4.06 L Hemoglobin 12.4 L Hematocrit 37.9 L Mean Corpuscular Volume 93.3 Mean Corpuscular Hemoglobin 30.5 Mean Corpuscular 32.7 Hemoglobin Concent Red Cell Distribution Width 15.9 H Platelet Count 170 Mean Platelet Volume 10.6 H Immature Granulocytes % 0.500 H Neutrophils % 93.0 H Lymphocytes % 3.5 L Monocytes % 2.6 Eosinophils % 0.3 Basophils % 0.1 Nucleated Red Blood Cells % 0.0 Immature Granulocytes # 0.120 H Neutrophils # 20.8 H Lymphocytes # 0.8 Monocytes # 0.6 Eosinophils # 0.1 Basophils # 0.0 Nucleated Red Blood Cells # 0.0 Sodium Level 150 H Potassium Level 3.1 L Chloride Level 118 H Carbon Dioxide Level 28 Anion Gap 4 L Blood Urea Nitrogen 23 H Creatinine 1.14 Est Glomerular Filtrat Rate mL/min Glucose Level 175 Calcium Level 10.2 Phosphorus Level 2.2 L Magnesium Level 2.1 Lab Scanned Report REFERENCE LAB Subjective 24 Hr Interval Summary Free Text/Dictation Patient remained hemodynamically stable, afebrile. WBC still elevated at 20,000. Sputum cultures still pending Exam/Review of Systems Vital Signs Vitals Vital Signs Date Temp Pulse Resp B/P (MAP) Pulse Ox O2 O2 Flow FiO2 Time Delivery Rate 06/01/18 87 08:00 06/01/18 98.1 17 139/76 98 07:53 (97) 06/01/18 5.0 28 05:35 05/31/18 Aerosol 14:00 Intake and Output 05/31/18 05/31/18 06/01/18 1515:00 23:00 07:00 IntakeIntake Total 50 ml 870 ml 1300 ml OutputOutput Total 800 ml 700 ml BalanceBalance 50 ml 70 ml 600 ml Exam Constitutional: alert, oriented (x2), frail, other Respiratory: normal air movement, congested cough (With increased secretion from trach), other (On trach collar 8 L) Cardiovascular: regular rate and rhythm, nl pulses Gastrointestinal: soft, non-tender, other (s/p PEG tube ) Musculoskeletal: nl extremities to inspection, other (Mostly bedridden) Extremities: normal pulses Neurological: [employer] II-XII intact, confused (At times), other (Status post tracheostomy) Medications Medications Current Medications Acetaminophen/ Hydrocodone Bitart (Lortab Liq) 15 ml TID PRN GTB PAIN; Start 05/28/18 at 15:30 Tamsulosin HCl (Flomax) 0.4 mg HS PO Last administered on 05/31/18at 21:44; Admin Dose 0.4 MG; Start 05/28/18 at 21:00 IV Flush (NS 3 ml) 3 ml PER PROTOCOL IV ; Start 05/28/18 at 15:30 Ondansetron HCl (Zofran Inj) 4 mg Q6H PRN IV NAUSEA AND/OR VOMITING; Start 05/28/18 at 15:30 Acetaminophen (Tylenol Supp) 650 mg Q6H PRN [place] PAIN LEVEL 1-3 OR FEVER; Start 05/28/18 at 15:30 Bisacodyl (Dulcolax Supp) 10 mg DAILY PRN [place] CONSTIPATION; Start 05/28/18 at 15:30 Famotidine (Pepcid Iv) 20 mg Q12 IV Last administered on 06/01/18at 09:36; Admin Dose 20 MG; Start 05/28/18 at 21:00 Heparin Sodium (Porcine) (Heparin (5000 Units/1ml)) 5,000 unit Q8 SC Last administered on 06/01/18at 06:19; Admin Dose 5,000 UNIT; Start 05/28/18 at 22:00 Vancomycin HCl (Vanco Iv Per Pharmacy) VANCOMYCIN PER PHARMACY PER PROTOCOL XX ; Start 05/28/18 at 15:30 Levothyroxine Sodium (Synthroid Iv) 50 mcg DAILY@06 IV Last administered on 06/01/18at 06:17; Admin Dose 50 MCG; Start 05/29/18 at 06:00 Piperacillin Sod/ Tazobactam Sod 100 ml @ 200 mls/hr Q8 IVPB Last administered on 06/01/18at 06:18; Admin Dose 200 MLS/HR; Start 05/28/18 at 22:00 Vancomycin HCl 100 ml @ 100 mls/hr Q12H IVPB Last administered on 06/01/18at 00:59; Admin Dose 100 MLS/HR; Start 05/30/18 at 12:00 Morphine Sulfate (morphine SULFATE (PF)) 2 mg Q4H PRN IV PAIN LEVEL 7-10; Start 05/31/18 at 14:30 Potassium Phosphate 30 mm/ Sodium Chloride 260 ml @ 65 mls/hr ONCE ONCE IVPB ; Start 06/01/18 at 11:00; Stop 06/01/18 at 14:59 CHRISTIANO RIVERS Jun 01, 2018 10:07
[2018-06-01] MEDS ORDERED: POTASSIUM PHOSPHATE 30 MM in SOD CHLORIDE 0.9% 250 ML IVPB ONE (11:00)
[2018-06-01] MEDS: TAMSULOSIN (SR) 0.4 MG CAP PO SCH (21:31)
[2018-06-01] MEDS: morphine SULFATE/PF (2 MG/2 ML) SYG IV PRN (21:56)
[2018-06-02] VITALS (15 sets, daily range): BP systolic 119–150; BP diastolic 60–79; PULSE 63–88; RESP 17–19
[2018-06-02] MEDS: morphine SULFATE/PF (2 MG/2 ML) SYG IV PRN (04:30)
[2018-06-02] MEDS: LEVOTHYROXINE 100 MCG TAB GTB SCH (05:29)
[2018-06-02] MEDS: PIPER-TAZO 3.375 GM IV (PMX) 100 ML IVPB SCH ×3 (05:29→21:00)
[2018-06-02] MEDS: HEPARIN 5,000 UNIT/1 ML VIAL SC SCH ×3 (05:37→21:43)
[2018-06-02] MEDS: FAMOTIDINE 20 MG INJ IV SCH ×2 (09:38→21:00)
[2018-06-02] MEDS ORDERED: POTASSIUM CHLORIDE 20 MEQ POWDER FOR ORAL SOLN GTB ONE (10:30)
[2018-06-02] MEDS ORDERED: POTASSIUM PHOSPHATE 30 MM in SOD CHLORIDE 0.9% 250 ML IVPB ONE (10:30)
[2018-06-02] MEDS ORDERED: MAGNESIUM SULFATE 1 GM/D5W 100 ML IVPB ONE (10:30)
--- NOTE | 2018-06-02 10:56 | PN ---
Date/Time of Note Date/Time of Note DATE: 06/02/18 TIME: 10:48 Assessment/Plan VTE Prophylaxis Risk score (from Ns)>0 risk: 13 SCD applied (from Ns): Yes Pharmacological prophylaxis: heparin Lines/Catheters IV Catheter Type (from Nrsg): PICC Line Central line still needed: Yes (for IV access ) Urinary Cath still in place: Yes Reason Cath still needed: other (indicate) (Strict I's and O's.) Assessment/Plan Assessment/Plan 77-year-old male with: 1. Severe electrolytes abnormalities including hypokalemia, hypomagnesemia, hypophosphatemia, hypercalcemia and hypernatremia all secondary to severe dysphasia, dehydration, decreased p.o. intake in setting of laryngeal carcinoma and no other p.o. access currently. Still repleting electrolytes, now via PEG tube. Hyponatremia improving slowly. Continue current care, will increase free water. Hypercalcemia now resolved and off note he also got Pamidronate at [facility] this past admission there. Monitor electrolytes closely, replete as needed Follow-up BMP. 2. Severe dysphagia, progressed to dysphagia to even liquid, patient needs his PEG tube replaced. Repeat CT chest and neck with IV contrast overnight he showed recurrence of the tumor likely, GI has been consulted, S/p PEG tube placement, tube feeding on board along with free water. Tolerated well so far. Appreciate GI assistance. 3. Acute kidney injury secondary to prerenal azotemia and severe dehydration, already resolved post hydration. Monitor renal function and correcting electrolytes. 4. Leukocytosis, chest x-ray does not show any infiltrates, unclear if patient has tracheobronchitis or early aspiration pneumonia. Still persistent leukocytosis. Sputum Gram stain with gram-negative han, gram-positive rods, yeast. Awaiting for culture results, infectious disease consulted for better management of antibiotic regimen. Urine culture and blood cultures remain negative so far. 5. Hypothyroidism: Back to po Synthroid 100 mcg daily via PEG tube. Repeat TFTs in 4-6 weeks. 6. Laryngeal squamous cell carcinoma, concerns for recurrence given the recurring severe dysphagia of the patient. CT soft tissue neck and chest with IV contrast done overnight and again it is seen that the patient does have a mass there, unclear what he had left post surgery, I have informed the patient's that she will be given the CAT scan report and that she can request the images so she can take it to her outpatient oncologist is Dr. Markham from [facility] [place] and they can make further decision regarding additional treatment if available and needed. 7. 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 Continue to monitor closely. Pulmonary toilet, antibiotic for tracheobronchitis. Follow-up sputum cultures for further adjustments. Infectious disease consulted. 8. Severe protein calorie malnutrition, secondary to significantly decreased p.o. intake. Low prealbumin. Now on tube feedings, which should help nutritional status. 9. Encephalopathy, likely metabolic. Monitor mental status closely. CT head negative for acute findings Restraints. Prophylaxis: Heparin subcu for DVT prophylaxis, Pepcid for GI prophylaxis Disposition: Status post PEG tube placement, now can use p.o. access and hyponatremia improving slowly. Will continue current tube feedings along with free water and electrolyte replacement aggressively via PEG tube. Additional IV replacement as needed. Follow-up cultures and infectious disease consulted to adjust antibiotics regimen. Result Diagram: 06/02/18 0528 06/02/18 0528 Results 24hrs Laboratory Tests Test 06/01/18 17:48 06/02/18 05:28 Sodium Level 152 H 153 H Potassium Level 3.6 3.2 L Chloride Level 117 H 116 H Carbon Dioxide Level 30 29 Anion Gap 5 8 Blood Urea Nitrogen 25 H 25 H Creatinine 1.18 1.05 Est Glomerular Filtrat Rate mL/min Glucose Level 146 176 Calcium Level 10.0 9.7 Phosphorus Level 2.9 2.1 L Magnesium Level 2.0 1.9 White Blood Count 17.6 #H Red Blood Count 3.52 L Hemoglobin 10.5 L Hematocrit 32.6 L Mean Corpuscular Volume 92.6 Mean Corpuscular Hemoglobin 29.8 Mean Corpuscular Hemoglobin Concent 32.2 Red Cell Distribution Width 15.9 H Platelet Count 135 #L Mean Platelet Volume 10.8 H Immature Granulocytes % 0.600 H Neutrophils % 92.8 H Lymphocytes % 3.0 L Monocytes % 3.1 Eosinophils % 0.4 Basophils % 0.1 Nucleated Red Blood Cells % 0.0 Immature Granulocytes # 0.110 H Neutrophils # 16.4 H Lymphocytes # 0.5 L Monocytes # 0.5 Eosinophils # 0.1 Basophils # 0.0 Nucleated Red Blood Cells # 0.0 Total Bilirubin 0.1 L Direct Bilirubin 0.00 Indirect Bilirubin 0.1 Aspartate Amino Transf (AST/SGOT) 24 Alanine Aminotransferase (ALT/SGPT) 32 Alkaline Phosphatase 87 Total Protein 5.2 L Albumin 2.7 L Globulin 2.50 Albumin/Globulin Ratio 1.08 Subjective 24 Hr Interval Summary Free Text/Dictation Patient currently sleeping but easily arousable. He gets confused and has pulled his PICC line and try to pull his trach collar before, he is currently on restraints, will keep the restraints on for another 24 hours, if patient remain calm it will be discontinued as a trial. He remains afebrile, WBC trending down, sputum culture with additional information, infectious disease consulted to adjust antibiotics. Exam/Review of Systems Vital Signs Vitals Vital Signs Date Temp Pulse Resp B/P (MAP) Pulse Ox O2 O2 Flow FiO2 Time Delivery Rate 06/02/18 97.8 79 18 131/65 97 10:00 (87) 06/02/18 Aerosol 5.0 28 07:25 Intake and Output 06/01/18 06/01/18 06/02/18 1515:00 23:00 07:00 IntakeIntake Total 460 ml 1100 ml 1200 ml OutputOutput Total 800 ml 2050 ml BalanceBalance 460 ml 300 ml -850 ml Exam Constitutional: alert, oriented (x2), other (Tracheostomy) Respiratory: normal air movement, other (Status post tracheostomy, on trach collar. 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 Mostly bedbound currently.) Medications Medications Current Medications Acetaminophen/ Hydrocodone Bitart (Lortab Liq) 15 ml TID PRN GTB PAIN; Start 05/28/18 at 15:30 Tamsulosin HCl (Flomax) 0.4 mg HS PO Last administered on 06/01/18at 21:31; Admin Dose 0.4 MG; Start 05/28/18 at 21:00 IV Flush (NS 3 ml) 3 ml PER PROTOCOL IV ; Start 05/28/18 at 15:30 Ondansetron HCl (Zofran Inj) 4 mg Q6H PRN IV NAUSEA AND/OR VOMITING; Start 05/28/18 at 15:30 Acetaminophen (Tylenol Supp) 650 mg Q6H PRN ME PAIN LEVEL 1-3 OR FEVER; Start 05/28/18 at 15:30 Bisacodyl (Dulcolax Supp) 10 mg DAILY PRN [place] CONSTIPATION; Start 05/28/18 at 15:30 Famotidine (Pepcid Iv) 20 mg Q12 IV Last administered on 06/02/18at 09:38; Admin Dose 20 MG; Start 05/28/18 at 21:00 Heparin Sodium (Porcine) (Heparin (5000 Units/1ml)) 5,000 unit Q8 SC Last administered on 06/02/18at 05:37; Admin Dose 5,000 UNIT; Start 05/28/18 at 22:00 Vancomycin HCl (Vanco Iv Per Pharmacy) VANCOMYCIN PER PHARMACY PER PROTOCOL XX ; Start 05/28/18 at 15:30 Piperacillin Sod/ Tazobactam Sod 100 ml @ 200 mls/hr Q8 IVPB Last administered on 06/02/18at 05:29; Admin Dose 200 MLS/HR; Start 05/28/18 at 22:00 Morphine Sulfate (morphine SULFATE (PF)) 2 mg Q4H PRN IV PAIN LEVEL 7-10 Last administered on 06/02/18at 04:30; Admin Dose 2 MG; Start 05/31/18 at 14:30 Levothyroxine Sodium (Synthroid) 100 mcg DAILY@06 GTB Last administered on 06/02/18at 05:29; Admin Dose 100 MCG; Start 06/02/18 at 06:00 Vancomycin/Sodium Chloride 250 ml @ 125 mls/hr Q24H IVPB ; Start 06/02/18 at 12:00 Potassium Phosphate 30 mm/ Sodium Chloride 260 ml @ 65 mls/hr ONCE ONCE IVPB ; Start 06/02/18 at 10:30; Stop 06/02/18 at 14:29 Magnesium Sulfate/ Dextrose 100 ml @ 100 mls/hr ONCE ONCE IVPB ; Start 06/02/18 at 10:30; Stop 06/02/18 at 11:29 CHRISTIANO RIVERS Jun 02, 2018 10:56
[2018-06-02] MEDS ORDERED: VANCOMYCIN 750 MG (PMX) 250 ML IVPB SCH (12:00)
--- NOTE | 2018-06-02 15:14 | CONS ---
Date/Time of Note Date/Time of Note DATE: 06/02/18 TIME: 14:55 Assessment/Plan Assessment/Plan Hospital Course ID PROGRESS NOTE CURRENT ABX: DAY # 6 => Vanco IV + Zosyn 0528 06/02/18 0528 24H INTERVAL SUMMARY * Lethargic, awakens, VSS, NAD, no complaints , without distress on trach mask * 05/30/18 CXR: Improving bibasilar infiltrates MICRO * 05/31/18 BCx (-) * 05/28/18 Resp Cx RESPIRATORY CULTURE Preliminary Organism 1 GRAM NEGATIVE ELVIA QUANTITY 1+ Organism 2 COLIFORM QUANTITY SCANT GROWTH Organism 3 MAURICE ALBICANS QUANTITY 2+ * 05/28/18 (-)MRSA * 05/28/18 Urine Cx (-) PHYSICAL EXAMINATION: GENERAL: Afebrile, VSS, HEENT: AT, NC, anicteric NECK: Supple, tracheostomy with surrounding hyperkeratotic, erythematous skin changes,?hx of XRT == Trach mask CHEST: Equal chest rise bilaterally, without dyspnea on observation HEART: Pulse RRR ABDOMEN: New Peg EXTREMITIES: Warm, no edema SKIN: No rash, no diaphoresis ID ASSESSMENT 77 yo M admit with: 1. SIRS w/low grade temps, leukocytosis 2. Bilateral HCAP per CXR w/bilateral lung infiltrates * HCAP: Aspiration * 05/28/18 Resp Cx RESPIRATORY CULTURE Preliminary Organism 1 GRAM NEGATIVE ELVIA QUANTITY 1+ Organism 2 COLIFORM === E.Coli QUANTITY SCANT GROWTH Organism 3 MAURICE ALBICANS QUANTITY 2+ 3. Laryngeal carcinoma w/Tracheostomy * Suspect prior XRT due to skin changes at trach, neck, chest site 4. Dysphagia s/p PEG 05/30/18 5. Recurrent aspiration syndrome 6. Hypothyroidism 7. Protein calorie malnutrition w/hypalbuminemia 8. Acute renal insufficiency -- improved 9. Electrolyte abnormalities: Hypernatremia, hypercalcemia, hypokalemia (-)MRSA Nares ABX ALLERGIES: NKDA INVASIVES: PICC, Trach, Peg CURRENT ABX: DAY # 6 => Vanco IV + Zosyn ID RECOMMENDATIONS/PLAN: * Await final ID GNR & E.Coli == Will taper Zosyn to GNR sensitivities when they are reported * DC Vanco IV * Start Colistin INH via trach mask to offload trach pathogens * Start Cancidas IV to cover yeast -- not able to Rx Diflucan due to drug drug allergies w/pain meds and Zofran . Result Diagram: 06/02/18 0528 06/02/18 0528 Results 24hrs Laboratory Tests Test 06/01/18 17:48 06/02/18 05:28 Sodium Level 152 H 153 H Potassium Level 3.6 3.2 L Chloride Level 117 H 116 H Carbon Dioxide Level 30 29 Anion Gap 5 8 Blood Urea Nitrogen 25 H 25 H Creatinine 1.18 1.05 Est Glomerular Filtrat Rate mL/min Glucose Level 146 176 Calcium Level 10.0 9.7 Phosphorus Level 2.9 2.1 L Magnesium Level 2.0 1.9 White Blood Count 17.6 #H Red Blood Count 3.52 L Hemoglobin 10.5 L Hematocrit 32.6 L Mean Corpuscular Volume 92.6 Mean Corpuscular Hemoglobin 29.8 Mean Corpuscular Hemoglobin Concent 32.2 Red Cell Distribution Width 15.9 H Platelet Count 135 #L Mean Platelet Volume 10.8 H Immature Granulocytes % 0.600 H Neutrophils % 92.8 H Lymphocytes % 3.0 L Monocytes % 3.1 Eosinophils % 0.4 Basophils % 0.1 Nucleated Red Blood Cells % 0.0 Immature Granulocytes # 0.110 H Neutrophils # 16.4 H Lymphocytes # 0.5 L Monocytes # 0.5 Eosinophils # 0.1 Basophils # 0.0 Nucleated Red Blood Cells # 0.0 Total Bilirubin 0.1 L Direct Bilirubin 0.00 Indirect Bilirubin 0.1 Aspartate Amino Transf (AST/SGOT) 24 Alanine Aminotransferase (ALT/SGPT) 32 Alkaline Phosphatase 87 Total Protein 5.2 L Albumin 2.7 L Globulin 2.50 Albumin/Globulin Ratio 1.08 Consultation Date/Type/Reason Admit Date/Time May 28, 2018 at 13:33 Initial Consult Date 05/29/18 Exam/Review of Systems Vital Signs Vitals Vital Signs Date Temp Pulse Resp B/P (MAP) Pulse Ox O2 O2 Flow FiO2 Time Delivery Rate 06/02/18 85 13:03 06/02/18 98.1 18 130/68 97 11:58 (88) 06/02/18 5.0 28 11:32 06/02/18 Aerosol 07:25 Intake and Output 06/01/18 06/01/18 06/02/18 1515:00 23:00 07:00 IntakeIntake Total 460 ml 1100 ml 1200 ml OutputOutput Total 800 ml 2050 ml BalanceBalance 460 ml 300 ml -850 ml Medications Medications Current Medications Acetaminophen/ Hydrocodone Bitart (Lortab Liq) 15 ml TID PRN GTB PAIN; Start 05/28/18 at 15:30 Tamsulosin HCl (Flomax) 0.4 mg HS PO Last administered on 06/01/18at 21:31; Admin Dose 0.4 MG; Start 05/28/18 at 21:00 IV Flush (NS 3 ml) 3 ml PER PROTOCOL IV ; Start 05/28/18 at 15:30 Ondansetron HCl (Zofran Inj) 4 mg Q6H PRN IV NAUSEA AND/OR VOMITING; Start 05/28/18 at 15:30 Acetaminophen (Tylenol Supp) 650 mg Q6H PRN [place] PAIN LEVEL 1-3 OR FEVER; Start 05/28/18 at 15:30 Bisacodyl (Dulcolax Supp) 10 mg DAILY PRN [place] CONSTIPATION; Start 05/28/18 at 15:30 Famotidine (Pepcid Iv) 20 mg Q12 IV Last administered on 06/02/18at 09:38; Admin Dose 20 MG; Start 05/28/18 at 21:00 Heparin Sodium (Porcine) (Heparin (5000 Units/1ml)) 5,000 unit Q8 SC Last administered on 06/02/18at 05:37; Admin Dose 5,000 UNIT; Start 05/28/18 at 22:00 Vancomycin HCl (Vanco Iv Per Pharmacy) VANCOMYCIN PER PHARMACY PER PROTOCOL XX ; Start 05/28/18 at 15:30 Piperacillin Sod/ Tazobactam Sod 100 ml @ 200 mls/hr Q8 IVPB Last administered on 06/02/18at 05:29; Admin Dose 200 MLS/HR; Start 05/28/18 at 22:00 Morphine Sulfate (morphine SULFATE (PF)) 2 mg Q4H PRN IV PAIN LEVEL 7-10 Last administered on 06/02/18at 04:30; Admin Dose 2 MG; Start 05/31/18 at 14:30 Levothyroxine Sodium (Synthroid) 100 mcg DAILY@06 GTB Last administered on 06/02/18at 05:29; Admin Dose 100 MCG; Start 06/02/18 at 06:00 Vancomycin/Sodium Chloride 250 ml @ 125 mls/hr Q24H IVPB Last administered on 06/02/18at 12:36; Admin Dose 125 MLS/HR; Start 06/02/18 at 12:00 BURAK GUERRERO NP Jun 02, 2018 15:06
[2018-06-02] MEDS ORDERED: CASPOFUNGIN 70 MG in SOD CHLORIDE 0.9% 250 ML IVPB ONE (16:00)
[2018-06-02] MEDS: COLISTIMETHATE (25 MG/ML INHAL SYG) NEB SCH (20:00)
--- NOTE | 2018-06-02 20:25 | CONS ---
DATE OF ADMISSION: 05/28/2018 DATE OF CONSULTATION: 06/02/2018 TYPE OF CONSULTATION: Infectious Disease. REASON FOR CONSULTATION: Antibiotic management. HISTORY OF PRESENT ILLNESS: Pauline Shah is a 77-year-old male, who comes in with possible aspirat ion and with an oxygen saturation of 87%. He is a 77-year-old male with history of laryngeal cancer status post chemotherapy and radiation with tracheostomy, who presents with possible aspiration pneum onia from alf facility. There was, according to the record, stable feeding and his satur ation has dropped to 87%. Past problems include: 1. Laryngeal carcinoma status post tracheostomy. 2. Status post PEG placement for dysphagia. 3. 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 On admission, his white count was 19.9, H and H of 14.6 and 44, platelet count 237,000. BUN and crea tinine 44/1.43, potassium is 26, random glucose of 127. HOSPITAL COURSE: The patient had white count of 19.9 with 96% neutrophils. The patient was started on vancomycin and Zosyn. Soft tissue of the neck shows status post tracheostomy. Left anterior neck shows enhancing heterogeneous soft tissue most compatible with tumor. Pneumothorax is present. Thi s lesion extends left lateral aspect of the neopharynx and larynx and underlying invasion is not excl uded. He has bilateral lower lobe consolidation with small bilateral pleural effusions, mild pericar dial effusion, moderate emphysematous changes within the lung. Chest x-ray did show bilateral atelec tasis, was unable to show the consolidation. A PICC line was inserted. A new left-sided PICC line r etraction of 5 cm was recommended, improving bibasilar infiltrates. The patient's white count today is 17.6 with 93% polys. His urine showed 1+ leukocyte esterase, 18 white cells per high powered fiel d, urine creatinine 25/1.05. The patient was started on vancomycin and Zosyn, as previously noted. PAST MEDICAL HISTORY: As outlined. FAMILY HISTORY: Noncontributory. SOCIAL HISTORY: He does not smoke, drink or abuse drugs. ALLERGIES: NONE TO PENICILLIN, SULFA OR FOODS. MEDICATIONS: Per chart. REVIEW OF SYSTEMS: Noncontributory. PHYSICAL EXAMINATION: GENERAL: The patient is chronically ill-appearing male who is awake, responsive, cachectic, in no ac satnam distress. VITAL SIGNS: Stable. He is afebrile. SKIN: Without generalized rash. HEENT: Within normal limits. NECK: Supple. Lymph nodes nonpalpable. Tracheostomy in place. Skin changes consistent with radiat ion therapy. CHEST: Bilateral rhonchi with decreased breath sounds at the bases. HEART: Bradycardic at a rate of about 53-54 with regular rhythm. ABDOMEN: Soft, nontender, without organosplenomegaly or masses. EXTREMITIES: Without cyanosis, clubbing, or edema. RECTAL AND GENITAL: Deferred. NEUROLOGIC: Awake, alert, moves all extremities, nonverbal, appears somewhat confused. IMPRESSION AND PLAN: The patient presents with numerous problems currently with aspiration pneumonia . We will continue him on vancomycin and Zosyn. His blood cultures so far are negative. Urine is n egative. I will dictate my findings to the hospitalist. Dictated By: VICKY WHITNEY MD, JD/FREDIS Conf#: [id number] DID#: [id number] CC: CHRISTIANO RIVERS MD;*EndCC*
[2018-06-02] MEDS: TAMSULOSIN (SR) 0.4 MG CAP PO SCH (21:00)
[2018-06-03] VITALS (16 sets, daily range): BP systolic 127–154; BP diastolic 58–74; PULSE 59–129; RESP 16–21
[2018-06-03] MEDS: morphine SULFATE/PF (2 MG/2 ML) SYG IV PRN ×2 (03:43→21:19)
[2018-06-03] MEDS: PIPER-TAZO 3.375 GM IV (PMX) 100 ML IVPB SCH ×3 (06:43→21:19)
[2018-06-03] MEDS: LEVOTHYROXINE 100 MCG TAB GTB SCH (06:43)
[2018-06-03] MEDS: HEPARIN 5,000 UNIT/1 ML VIAL SC SCH ×3 (06:50→22:17)
[2018-06-03] MEDS: FAMOTIDINE 20 MG INJ IV SCH ×2 (09:05→21:19)
--- NOTE | 2018-06-03 10:55 | PN ---
Date/Time of Note Date/Time of Note DATE: 06/03/18 TIME: 10:41 Assessment/Plan VTE Prophylaxis Risk score (from Ns)>0 risk: 13 SCD applied (from Ns): Yes Pharmacological prophylaxis: heparin Lines/Catheters IV Catheter Type (from Nrs): PICC Line Central line still needed: Yes (for IV access ) Urinary Cath still in place: Yes Reason Cath still needed: other (indicate) (Strict I's and O's.) Assessment/Plan Assessment/Plan 77-year-old male with: 1. Severe electrolytes abnormalities including hypokalemia, hypomagnesemia, hypophosphatemia, hypercalcemia and hypernatremia all secondary to severe dysphasia, dehydration, decreased p.o. intake in setting of laryngeal carcinoma and no other p.o. access currently. Still repleting electrolytes, now via PEG tube. Hyponatremia improving slowly. Continue current care, on free water 300 cc every 6 hours, KCl 40 mEq per G-tube daily schedule as of today since we have been repeating daily. K-Phos as needed, so far has required 30 mmol daily. Hypercalcemia now resolved and off note he also got Pamidronate at [facility] this past admission there. Monitor electrolytes closely, replete as needed Follow-up BMP every morning. 2. Severe dysphagia, progressed to dysphagia to even liquid, patient needs his PEG tube replaced. Repeat CT chest and neck with IV contrast overnight he showed recurrence of the tumor likely, GI has been consulted, S/p PEG tube placement, tube feeding on board along with free water. Tolerated well so far. Appreciate GI assistance. 3. Acute kidney injury secondary to prerenal azotemia and severe dehydration, already resolved post hydration. Monitor renal function and correcting electrolytes. 4. Leukocytosis, chest x-ray does not show any infiltrates, unclear if patient has tracheobronchitis or early aspiration pneumonia. Still persistent leukocytosis. Sputum Gram cx with E. coli, Klebsiella and Yue albicans, appreciate infectious disease recommendations, patient now on caspofungin, colistin inhaled and Zosyn being continued. Vancomycin discontinued last dose was 06/02. Urine culture and blood cultures remain negative. 5. Hypothyroidism: Back to po Synthroid 100 mcg daily via PEG tube. Repeat TFTs in 4-6 weeks. 6. Laryngeal squamous cell carcinoma, concerns for recurrence given the recurring severe dysphagia of the patient. CT soft tissue neck and chest with IV contrast done overnight and again it is seen that the patient does have a mass there, unclear what he had left post surgery, I have informed the patient's that she will be given the CAT scan report and that she can request the images so she can take it to her outpatient oncologist is [place]. [place] [facility] [place] make further decision regarding additional treatment if available and needed. 7. 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 Appreciate infectious disease, antibiotic adjusted for polymicrobial tracheobronchitis. Continue pulmonary toilet, patient still with lots of secretions from tracheostomy. 8. Severe protein calorie malnutrition, secondary to significantly decreased p.o. intake. Low prealbumin. Now on tube feedings, which should help nutritional status. 9. Encephalopathy, likely metabolic. Monitor mental status closely. CT head negative for acute findings Restraints. Prophylaxis: Heparin subcu for DVT prophylaxis, Pepcid for GI prophylaxis Disposition: Status post PEG tube placement, now can use p.o. access and hyponatremia improving slowly. Will continue current tube feedings along with free water and electrolyte replacement aggressively via PEG tube. Additional IV replacement as needed. Appreciate infectious disease recommendations and antibiotic adjustments. Result Diagram: 06/03/1852206/03/1823 Results 24hrs Laboratory Tests Test 06/03/18 05:23 White Blood Count 17.0 H Red Blood Count 3.36 L Hemoglobin 10.2 L Hematocrit 31.1 L Mean Corpuscular Volume 92.6 Mean Corpuscular Hemoglobin 30.4 Mean Corpuscular Hemoglobin Concent 32.8 Red Cell Distribution Width 15.8 H Platelet Count 128 L Mean Platelet Volume 10.8 H Immature Granulocytes % 0.600 H Neutrophils % 92.9 H Lymphocytes % 2.5 L Monocytes % 3.3 Eosinophils % 0.5 Basophils % 0.2 Nucleated Red Blood Cells % 0.0 Immature Granulocytes # 0.100 H Neutrophils # 15.8 H Lymphocytes # 0.4 L Monocytes # 0.6 Eosinophils # 0.1 Basophils # 0.0 Nucleated Red Blood Cells # 0.0 Sodium Level 152 H Potassium Level 3.1 L Chloride Level 117 H Carbon Dioxide Level 31 Anion Gap 4 L Blood Urea Nitrogen 21 H Creatinine 0.97 Est Glomerular Filtrat Rate mL/min Glucose Level 197 Calcium Level 9.3 Phosphorus Level 2.2 L Magnesium Level 2.1 Subjective 24 Hr Interval Summary Free Text/Dictation Patient awake alert, still trying to pull on ET tube, therefore restraints have to be reordered. Remain afebrile, chest x-ray overnight did show a new right lower lobe infiltrate, antibiotics have been adjusted by infectious disease yesterday morning already. We will continue to monitor laboratory data. Patient now on caspofungin, Zosyn and colistin inhaled. Vancomycin discontinued. Exam/Review of Systems Vital Signs Vitals Vital Signs Date Temp Pulse Resp B/P (MAP) Pulse Ox O2 O2 Flow FiO2 Time Delivery Rate 06/03/18 73 08:54 06/03/18 97.6 16 127/60 98 08:12 (82) 06/03/18 5.0 28 07:40 06/03/18 Aerosol 07:40 Intake and Output 06/02/18 06/02/18 06/03/18 1515:00 23:00 07:00 IntakeIntake Total 250 ml 1760 ml OutputOutput Total 1300 ml 1500 ml BalanceBalance 250 ml 460 ml -1500 ml Exam Constitutional: alert, oriented (x2) ENMT: other (Status post tracheostomy, patient does have a noticeable growth on his chest wall area and up his neck to his jaw area predominantly on the left. This is consistent with his known laryngeal squamous cell carcinoma which is at this point recurring.) Respiratory: diminished breath sounds (Right lower lobe.), other (On trach collar 8 L) Cardiovascular: regular rate and rhythm, nl pulses Gastrointestinal: soft, non-tender, other (Status post PEG tube placement) Musculoskeletal: nl extremities to inspection Extremities: normal pulses, other (Trace dependent edema) Neurological: STUNT PERSON II-XII intact, confused (At times), other (Mostly bedbound currently, status post tracheostomy therefore speech not audible.) Medications Medications Current Medications Acetaminophen/ Hydrocodone Bitart (Lortab Liq) 15 ml TID PRN GTB PAIN; Start 05/28/18 at 15:30 Tamsulosin HCl (Flomax) 0.4 mg HS PO Last administered on 06/02/18at 21:00; Admin Dose 0.4 MG; Start 05/28/18 at 21:00 IV Flush (NS 3 ml) 3 ml PER PROTOCOL IV ; Start 05/28/18 at 15:30 Ondansetron HCl (Zofran Inj) 4 mg Q6H PRN IV NAUSEA AND/OR VOMITING; Start 05/28/18 at 15:30 Acetaminophen (Tylenol Supp) 650 mg Q6H PRN OR PAIN LEVEL 1-3 OR FEVER; Start 05/28/18 at 15:30 Bisacodyl (Dulcolax Supp) 10 mg DAILY PRN OR CONSTIPATION; Start 05/28/18 at 15:30 Famotidine (Pepcid Iv) 20 mg Q12 IV Last administered on 06/03/18at 09:05; Admin Dose 20 MG; Start 05/28/18 at 21:00 Heparin Sodium (Porcine) (Heparin (5000 Units/1ml)) 5,000 unit Q8 SC Last administered on 06/03/18at 06:50; Admin Dose 5,000 UNIT; Start 05/28/18 at 22:00 Vancomycin HCl (Vanco Iv Per Pharmacy) VANCOMYCIN PER PHARMACY PER PROTOCOL XX ; Start 05/28/18 at 15:30 Piperacillin Sod/ Tazobactam Sod 100 ml @ 200 mls/hr Q8 IVPB Last administered on 06/03/18at 06:43; Admin Dose 200 MLS/HR; Start 05/28/18 at 22:00 Morphine Sulfate (morphine SULFATE (PF)) 2 mg Q4H PRN IV PAIN LEVEL 7-10 Last administered on 06/03/18at 03:43; Admin Dose 2 MG; Start 05/31/18 at 14:30 Levothyroxine Sodium (Synthroid) 100 mcg DAILY@06 GTB Last administered on at 06:43; Admin Dose 100 MCG; Start 06/02/18 at 06:00 Vancomycin/Sodium Chloride 250 ml @ 125 mls/hr Q24H IVPB Last administered on 06/02/18at 12:36; Admin Dose 125 MLS/HR; Start 06/02/18 at 12:00 Caspofungin 50 mg/ Sodium Chloride 250 ml @ 250 mls/hr Q24H IVPB ; Start 06/03/18 at 16:00 Colistimethate Sodium (Colistin Inhal) 75 mg BID RESP THERAPY NEB ; Start 06/02/18 at 20:00 Miscellaneous Information (*Rx Drug Level Order Reminder*) VANCO TROUGH @ 1,100 ONCE ONCE XX ; Start 06/04/18 at 11:00; Stop 06/04/18 at 11:01 Imaging Imaging PROCEDURE: XR Chest. CLINICAL INDICATION: Cough sputum. TECHNIQUE: AP view of the chest. COMPARISON: DR LOVING CHEST 05/30/2018 FINDINGS: There is a new right lower lobe airspace opacities suspicious for pneumonia. There is a left-sided central line with its tip in the SVC. There are surgical clips within the left axilla. There is aortic knob calcification. There is no pneumothorax. There are degenerative changes of the spine. IMPRESSION: Right lower lobe patchy airspace opacity is suspicious for pneumonia and new. RPTAT: HAP Admit-r Joshua, Physician Date Time Electronically viewed and signed by Duy Lewis, Physician on 06/03/2018 02:00 LINDA/ CHRISTIANO RIVERS Jun 03, 2018 10:52
[2018-06-03] MEDS: POTASSIUM CHLORIDE 20 MEQ POWDER FOR ORAL SOLN GTB SCH (11:17)
[2018-06-03] MEDS ORDERED: POTASSIUM PHOSPHATE 30 MM in SOD CHLORIDE 0.9% 250 ML IVPB ONE (12:30)
[2018-06-03] MEDS: CASPOFUNGIN 50 MG in SOD CHLORIDE 0.9% 250 ML IVPB SCH (15:21)
--- NOTE | 2018-06-03 20:22 | CONS ---
Date/Time of Note Date/Time of Note DATE: 06/03/18 TIME: :18 Assessment/Plan Assessment/Plan Hospital Course ID PROGRESS NOTE CURRENT ABX: DAY # 7=> Zosyn + Cancidas + Colistin INH s/p Vanco IV 0523 06/03/18 0523 24H INTERVAL SUMMARY * Clinically no changes from yesterday -- Lethargic, awakens, VSS, NAD, no complaints , without distress on trach mask * Still awaiting final ID GNR == Will taper Zosyn to GNR sensitivities when they are reported MICRO * 05/31/18 BCx (-) * 05/28/18 Resp Cx RESPIRATORY CULTURE Preliminary Organism 1 GRAM NEGATIVE ELVIA QUANTITY 1+ Organism 2 K.PNEUMONIAE SSP PNEUMONIAE QUANTITY SCANT GROWTH Organism 3 MAURICE ALBICANS QUANTITY 2+ K PNE SPP M.I.C. RX --------- --- CEFAZOLIN I CEFOTAXIME S CIPROFLOXACIN <=0.25 S GENTAMICIN <=1 S LEVOFLOXACIN <=0.12 S TOBRAMYCIN <=1 S TRIMETHOPRIM/SULFAMETHOXAZOLE <=20 S * 05/28/18 (-)MRSA * 05/28/18 Urine Cx (-) PHYSICAL EXAMINATION: GENERAL: Afebrile, VSS, HEENT: AT, NC, anicteric NECK: Supple, tracheostomy with surrounding hyperkeratotic, erythematous skin changes,?hx of XRT == Trach mask CHEST: Equal chest rise bilaterally, without dyspnea on observation HEART: Pulse RRR ABDOMEN: New Peg EXTREMITIES: Warm, no edema SKIN: No rash, no diaphoresis ID ASSESSMENT 77 yo M admit with: 1. SIRS w/low grade temps, leukocytosis 2. Bilateral HCAP per CXR w/bilateral lung infiltrates * HCAP: Aspiration * 05/28/18 Resp Cx RESPIRATORY CULTURE Preliminary Organism 1 GRAM NEGATIVE ELVIA QUANTITY 1+ Organism 2 K.PNEUMONIAE SSP PNEUMONIAE QUANTITY SCANT GROWTH Organism 3 MAURICE ALBICANS QUANTITY 2+ K PNE SPP M.I.C. RX --------- --- CEFAZOLIN I CEFOTAXIME S CIPROFLOXACIN <=0.25 S GENTAMICIN <=1 S LEVOFLOXACIN <=0.12 S TOBRAMYCIN <=1 S TRIMETHOPRIM/SULFAMETHOXAZOLE <=20 S 3. Laryngeal carcinoma w/Tracheostomy * Suspect prior XRT due to skin changes at trach, neck, chest site 4. Dysphagia s/p PEG 05/30/18 5. Recurrent aspiration syndrome 6. Hypothyroidism 7. Protein calorie malnutrition w/hypalbuminemia 8. Acute renal insufficiency -- improved 9. Electrolyte abnormalities: Hypernatremia, hypercalcemia, hypokalemia (-)MRSA Nares ABX ALLERGIES: NKDA INVASIVES: PICC, Trach, Peg CURRENT ABX: DAY # 7=> Zosyn + Cancidas + Colistin INH s/p Vanco IV + ID RECOMMENDATIONS/PLAN: * Still awaiting final ID GNR == Will taper Zosyn to GNR sensitivities when they are reported * Started Colistin INH via trach mask to offload trach pathogens * Started Cancidas IV to cover yeast -- not able to Rx Diflucan due to drug drug allergies w/pain meds and Zofran . Result Diagram: 06/03/18 0523 06/03/18 0523 Results 24hrs Laboratory Tests Test 06/03/18 05:23 White Blood Count 17.0 H Red Blood Count 3.36 L Hemoglobin 10.2 L Hematocrit 31.1 L Mean Corpuscular Volume 92.6 Mean Corpuscular Hemoglobin 30.4 Mean Corpuscular Hemoglobin Concent 32.8 Red Cell Distribution Width 15.8 H Platelet Count 128 L Mean Platelet Volume 10.8 H Immature Granulocytes % 0.600 H Neutrophils % 92.9 H Lymphocytes % 2.5 L Monocytes % 3.3 Eosinophils % 0.5 Basophils % 0.2 Nucleated Red Blood Cells % 0.0 Immature Granulocytes # 0.100 H Neutrophils # 15.8 H Lymphocytes # 0.4 L Monocytes # 0.6 Eosinophils # 0.1 Basophils # 0.0 Nucleated Red Blood Cells # 0.0 Sodium Level 152 H Potassium Level 3.1 L Chloride Level 117 H Carbon Dioxide Level 31 Anion Gap 4 L Blood Urea Nitrogen 21 H Creatinine 0.97 Est Glomerular Filtrat Rate mL/min Glucose Level 197 Calcium Level 9.3 Phosphorus Level 2.2 L Magnesium Level 2.1 Consultation Date/Type/Reason Admit Date/Time May 28, 2018 at 13:33 Initial Consult Date 05/29/18 Exam/Review of Systems Vital Signs Vitals Vital Signs Date Temp Pulse Resp B/P (MAP) Pulse Ox O2 O2 Flow FiO2 Time Delivery Rate 12/30/18 98.6 64 16 139/66 97 19:51 (90) 06/03/18 5.0 28 19:28 06/03/18 Aerosol 19:24 T Tube Intake and Output 06/02/18 06/02/18 06/03/18 1515:00 23:00 07:00 IntakeIntake Total 250 ml 1760 ml OutputOutput Total 1300 ml 1500 ml BalanceBalance 250 ml 460 ml -1500 ml Medications Medications Current Medications Acetaminophen/ Hydrocodone Bitart (Lortab Liq) 15 ml TID PRN GTB PAIN; Start 05/28/18 at 15:30 Tamsulosin HCl (Flomax) 0.4 mg HS PO Last administered on 06/02/18at 21:00; Admin Dose 0.4 MG; Start 05/28/18 at 21:00 IV Flush (NS 3 ml) 3 ml PER PROTOCOL IV ; Start 05/28/18 at 15:30 Ondansetron HCl (Zofran Inj) 4 mg Q6H PRN IV NAUSEA AND/OR VOMITING; Start 05/28/18 at 15:30 Acetaminophen (Tylenol Supp) 650 mg Q6H PRN MD PAIN LEVEL 1-3 OR FEVER; Start 05/28/18 at 15:30 Bisacodyl (Dulcolax Supp) 10 mg DAILY PRN MD CONSTIPATION; Start 05/28/18 at 15:30 Famotidine (Pepcid Iv) 20 mg Q12 IV Last administered on 06/03/18at 09:05; Admin Dose 20 MG; Start 05/28/18 at 21:00 Heparin Sodium (Porcine) (Heparin (5000 Units/1ml)) 5,000 unit Q8 SC Last administered on 06/03/18at 13:38; Admin Dose 5,000 UNIT; Start 05/28/18 at 22:00 Piperacillin Sod/ Tazobactam Sod 100 ml @ 200 mls/hr Q8 IVPB Last administered on 06/03/18at 13:37; Admin Dose 200 MLS/HR; Start 05/28/18 at 22:00 Morphine Sulfate (morphine SULFATE (PF)) 2 mg Q4H PRN IV PAIN LEVEL 7-10 Last administered on 06/03/18at 03:43; Admin Dose 2 MG; Start 05/31/18 at 14:30 Levothyroxine Sodium (Synthroid) 100 mcg DAILY@06 GTB Last administered on 06/03/18at 06:43; Admin Dose 100 MCG; Start 06/02/18 at 06:00 Caspofungin 50 mg/ Sodium Chloride 250 ml @ 250 mls/hr Q24H IVPB Last administered on 06/03/18at 15:21; Admin Dose 250 MLS/HR; Start 06/03/18 at 16:00 Colistimethate Sodium (Colistin Inhal) 75 mg BID RESP THERAPY NEB ; Start 06/02/18 at 20:00 Potassium Chloride (Potassium Chloride Pwd/Soln) 40 meq DAILY GTB Last administered on 06/03/18at 11:17; Admin Dose 40 MEQ; Start 06/03/18 at 11:00 BURAK GUERRERO NP Jun 03, 2018 20:22
[2018-06-03] MEDS: COLISTIMETHATE (25 MG/ML INHAL SYG) NEB SCH (21:15)
[2018-06-03] MEDS: TAMSULOSIN (SR) 0.4 MG CAP PO SCH (21:20)
[2018-06-04] VITALS (15 sets, daily range): BP systolic 123–150; BP diastolic 58–67; PULSE 56–65; RESP 16–18
[2018-06-04] MEDS: PIPER-TAZO 3.375 GM IV (PMX) 100 ML IVPB SCH (05:59)
[2018-06-04] MEDS: LEVOTHYROXINE 100 MCG TAB GTB SCH (06:03)
[2018-06-04] MEDS: HEPARIN 5,000 UNIT/1 ML VIAL SC SCH ×3 (06:18→22:02)
[2018-06-04] MEDS: FAMOTIDINE 20 MG INJ IV SCH ×2 (09:19→21:37)
[2018-06-04] MEDS: POTASSIUM CHLORIDE 20 MEQ POWDER FOR ORAL SOLN GTB SCH (09:20)
[2018-06-04] MEDS: COLISTIMETHATE (25 MG/ML INHAL SYG) NEB SCH ×2 (09:51→19:42)
[2018-06-04] MEDS ORDERED: LEVOFLOXACIN 500 MG TAB GTB ONE (11:45)
--- NOTE | 2018-06-04 11:58 | CONS ---
Date/Time of Note Date/Time of Note DATE: 06/04/18 TIME: 11:42 Assessment/Plan Assessment/Plan Hospital Course ID PROGRESS NOTE CURRENT ABX: DAY # 8=> + Cancidas + Colistin INH + Cefepime #1 DC Zosyn 06/04 s/p Vanco IV 06/04/18 0529 06/04/18 0529 24H INTERVAL SUMMARY * Stable on trach mask --- trach site w/moist yellow-guzman colored secretions, no fevers, VSS, WBC downtrending MICRO * 05/31/18 BCx (-) * 05/28/18 Resp Cx RESPIRATORY CULTURE Final Organism 1 PSEUDOMONAS AERUGINOSA QUANTITY 1+ Organism 2 K.PNEUMONIAE SSP PNEUMONIAE QUANTITY SCANT GROWTH Organism 3 MAURICE ALBICANS QUANTITY 2+ Pseudomonas aeruginosa: Meropenem ARLEY 0.5 Susceptible. P.AERUG K PNE SPP M.I.C. RX M.I.C. RX --------- --- --------- --- AMIKACIN <=2 S AZTREONAM I CEFAZOLIN I CEFEPIME 2 S CEFOTAXIME S CEFTAZIDIME 4 S CIPROFLOXACIN <=0.25 S <=0.25 S GENTAMICIN <=1 S <=1 S LEVOFLOXACIN 2 S <=0.12 S TOBRAMYCIN <=1 S <=1 S TRIMETHOPRIM/SULFAMETHOXAZOLE <=20 S PIPERACILLIN/TAZOBACTAM >=128 R * 05/28/18 (-)MRSA * 05/28/18 Urine Cx (-) PHYSICAL EXAMINATION: GENERAL: Afebrile, VSS, HEENT: AT, NC, anicteric NECK: Supple, tracheostomy with surrounding hyperkeratotic, erythematous skin changes,?hx of XRT == Trach mask CHEST: Equal chest rise bilaterally, without dyspnea on observation HEART: Pulse RRR ABDOMEN: New Peg EXTREMITIES: Warm, no edema SKIN: No rash, no diaphoresis ID ASSESSMENT 77 yo M admit with: 1. SIRS w/low grade temps, leukocytosis 2. Bilateral HCAP per CXR w/bilateral lung infiltrates * HCAP: Aspiration * 05/28/18 Resp Cx 05/28/18 Resp Cx RESPIRATORY CULTURE Final Organism 1 PSEUDOMONAS AERUGINOSA Organism 2 K.PNEUMONIAE SSP PNEUMONIAE Organism 3 MAURICE ALBICANS 3. Laryngeal carcinoma w/Tracheostomy * Suspect prior XRT due to skin changes at trach, neck, chest site 4. Dysphagia s/p PEG 05/30/18 5. Recurrent aspiration syndrome 6. Hypothyroidism 7. Protein calorie malnutrition w/hypalbuminemia 8. Acute renal insufficiency -- improved 9. Electrolyte abnormalities: Hypernatremia, hypercalcemia, hypokalemia (-)MRSA Nares ABX ALLERGIES: NKDA INVASIVES: PICC, Trach, Peg CURRENT ABX: DAY # 8=> + Cancidas + Colistin INH + Cefepime #1 DC Zosyn 06/04 s/p Vanco IV ID RECOMMENDATIONS/PLAN: * Started Colistin INH via trach mask to offload trach pathogens * Started Cancidas IV to cover yeast -- not able to Rx Diflucan due to drug drug allergies w/pain meds and Zofran * DC Zosyn -- Change to Cefepime IV * Start Levaquin 500mg via GT * FINAL ID RECOMMENDATIONS: DC PLANNING * May DC when cleared by Primary on Levaquin 500mg via GT x 10 to cover GNR pathogens * Consider Diflucan 50mg via GT daily for yeast . Result Diagram: 06/04/18 0529 06/04/18 0529 Results 24hrs Laboratory Tests Test 06/04/18 05:29 White Blood Count 14.1 H Red Blood Count 3.31 L Hemoglobin 10.1 L Hematocrit 30.7 L Mean Corpuscular Volume 92.7 Mean Corpuscular Hemoglobin 30.5 Mean Corpuscular Hemoglobin Concent 32.9 Red Cell Distribution Width 16.1 H Platelet Count 126 L Mean Platelet Volume 10.7 H Immature Granulocytes % 0.600 H Neutrophils % 92.2 H Lymphocytes % 3.3 L Monocytes % 3.1 Eosinophils % 0.7 Basophils % 0.1 Nucleated Red Blood Cells % 0.0 Immature Granulocytes # 0.090 H Neutrophils # 13.0 H Lymphocytes # 0.5 L Monocytes # 0.4 Eosinophils # 0.1 Basophils # 0.0 Nucleated Red Blood Cells # 0.0 Sodium Level 152 H Potassium Level 3.3 L Chloride Level 115 H Carbon Dioxide Level 31 Anion Gap 6 Blood Urea Nitrogen 22 H Creatinine 0.93 Est Glomerular Filtrat Rate mL/min Glucose Level 173 Calcium Level 9.0 Phosphorus Level 2.5 Magnesium Level 2.0 Consultation Date/Type/Reason Admit Date/Time May 28, 2018 at 13:33 Initial Consult Date 05/29/18 Exam/Review of Systems Vital Signs Vitals Vital Signs Date Temp Pulse Resp B/P (MAP) Pulse Ox O2 O2 Flow FiO2 Time Delivery Rate 06/04/18 98.8 62 16 150/67 99 11:40 (94) 06/04/18 5.0 10:40 06/04/18 Aerosol 28 09:51 Mask Intake and Output 06/03/18 06/03/18 06/04/18 1414:59 22:59 06:59 IntakeIntake Total 200 ml 1225 ml 1150 ml OutputOutput Total 1500 ml 1200 ml BalanceBalance 200 ml -275 ml -50 ml Medications Medications Current Medications Acetaminophen/ Hydrocodone Bitart (Lortab Liq) 15 ml TID PRN GTB PAIN; Start 05/28/18 at 15:30 Tamsulosin HCl (Flomax) 0.4 mg HS PO Last administered on 06/03/18at 21:20; Admin Dose 0.4 MG; Start 05/28/18 at 21:00 IV Flush (NS 3 ml) 3 ml PER PROTOCOL IV ; Start 05/28/18 at 15:30 Ondansetron HCl (Zofran Inj) 4 mg Q6H PRN IV NAUSEA AND/OR VOMITING; Start 05/28/18 at 15:30 Acetaminophen (Tylenol Supp) 650 mg Q6H PRN [place] PAIN LEVEL 1-3 OR FEVER; Start 05/28/18 at 15:30 Bisacodyl (Dulcolax Supp) 10 mg DAILY PRN [place] CONSTIPATION; Start 05/28/18 at 15:30 Famotidine (Pepcid Iv) 20 mg Q12 IV Last administered on 06/04/18at 09:19; Admin Dose 20 MG; Start 05/28/18 at 21:00 Heparin Sodium (Porcine) (Heparin (5000 Units/1ml)) 5,000 unit Q8 SC Last administered on 06/04/18at 06:18; Admin Dose 5,000 UNIT; Start 05/28/18 at 22:00 Piperacillin Sod/ Tazobactam Sod 100 ml @ 200 mls/hr Q8 IVPB Last administered on 06/04/18at 05:59; Admin Dose 200 MLS/HR; Start 05/28/18 at 22:00 Morphine Sulfate (morphine SULFATE (PF)) 2 mg Q4H PRN IV PAIN LEVEL 7-10 Last administered on 06/03/18at 21:19; Admin Dose 2 MG; Start 05/31/18 at 14:30 Levothyroxine Sodium (Synthroid) 100 mcg DAILY@06 GTB Last administered on 06/04/18at 06:03; Admin Dose 100 MCG; Start 06/02/18 at 06:00 Caspofungin 50 mg/ Sodium Chloride 250 ml @ 250 mls/hr Q24H IVPB Last administered on 06/03/18at 15:21; Admin Dose 250 MLS/HR; Start 06/03/18 at 16:00 Colistimethate Sodium (Colistin Inhal) 75 mg BID RESP THERAPY NEB Last administered on 06/04/18at 09:51; Admin Dose 75 MG; Start 06/02/18 at 20:00 Potassium Chloride (Potassium Chloride Pwd/Soln) 40 meq DAILY GTB Last administered on 06/04/18 09:20; Admin Dose 40 MEQ; Start 06/03/18 at 11:00 BURAK GUERRERO NP Jun 04, 2018 11:54
[2018-06-04] MEDS: morphine SULFATE/PF (2 MG/2 ML) SYG IV PRN (12:43)
[2018-06-04] MEDS: CEFEPIME 1GM/50 ML IVPB SCH ×2 (14:11→21:37)
--- NOTE | 2018-06-04 14:22 | PN ---
Date/Time of Note Date/Time of Note DATE: 06/04/18 TIME: 14:19 Assessment/Plan VTE Prophylaxis Risk score (from [facility] [place])>0 risk: 14 SCD applied (from [facility]): Yes Pharmacological prophylaxis: heparin Lines/Catheters IV Catheter Type (from [facility]): PICC Line Central line still needed: Yes (Poor peripheral access ) Urinary Cath still in place: Yes Reason Cath still needed: urinary retention, pres ulcer contaminated by urine Assessment/Plan Assessment/Plan 1. Severe electrolytes abnormalities including hypokalemia, hypomagnesemia, hypophosphatemia, hypercalcemia and hypernatremia all secondary to severe dysphasia, dehydration, decreased p.o. intake in setting of laryngeal carcinoma and no other p.o. access currently. Hypercalcemia now resolved and off note he also got Pamidronate at [facility] this past admission there. Monitor electrolytes closely, replete as needed Follow-up BMP every morning. 2. Severe dysphagia, progressed to dysphagia to even liquid, patient needs his PEG tube replaced. Repeat CT chest and neck with IV contrast overnight he showed recurrence of the tumor likely, GI has been consulted, S/p PEG tube placement, tube feeding on board along with free water. Tolerated well so far. Appreciate GI assistance. 3. Acute kidney injury secondary to prerenal azotemia and severe dehydration, already resolved post hydration. Monitor renal function and correcting electrolytes. 4. Leukocytosis, chest x-ray does not show any infiltrates, unclear if patient has tracheobronchitis or early aspiration pneumonia. Still persistent leukocytosis. Sputum Gram cx with E. coli, Klebsiella and Yue albicans, appreciate infectious disease recommendations, patient now on caspofungin, colistin inhaled and Zosyn being continued. Vancomycin discontinued last dose was 06/02. Urine culture and blood cultures remain negative. 5. Hypothyroidism: Back to po Synthroid 100 mcg daily via PEG tube. Repeat TFTs in 4-6 weeks. 6. Laryngeal squamous cell carcinoma, concerns for recurrence given the recu rring severe dysphagia of the patient. CT soft tissue neck and chest with IV contrast done overnight and again it is seen that the patient does have a mass there, unclear what he had left post surgery, I have informed the patient's that she will be given the CAT scan report and that she can request the images so she can take it to her outpatient oncologist is Dr. Markham from [facility] [place] and they can make further decision regarding additional treatment if available and needed. 7. 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 Appreciate infectious disease, antibiotic adjusted for polymicrobial tracheobronchitis. Continue pulmonary toilet, patient still with lots of secretions from tracheostomy. 8. Severe protein calorie malnutrition, secondary to significantly decreased p.o. intake. Low prealbumin. Now on tube feedings, which should help nutritional status. 9. Encephalopathy, likely metabolic. Monitor mental status closely. CT head negative for acute findings Restraints.- renewed today Prophylaxis: Heparin subcu for DVT prophylaxis, Pepcid for GI prophylaxis Disposition: Status post PEG tube placement, now can use p.o. access and hyponatremia improving slowly. Will continue current tube feedings along with free water and electrolyte replacement aggressively via PEG tube. Result Diagram: 06/04/18 0529 06/04/18 0529 Results 24hrs Laboratory Tests Test 06/04/18 05:29 White Blood Count 14.1 H Red Blood Count 3.31 L Hemoglobin 10.1 L Hematocrit 30.7 L Mean Corpuscular Volume 92.7 Mean Corpuscular Hemoglobin 30.5 Mean Corpuscular Hemoglobin Concent 32.9 Red Cell Distribution Width 16.1 H Platelet Count 126 L Mean Platelet Volume 10.7 H Immature Granulocytes % 0.600 H Neutrophils % 92.2 H Lymphocytes % 3.3 L Monocytes % 3.1 Eosinophils % 0.7 Basophils % 0.1 Nucleated Red Blood Cells % 0.0 Immature Granulocytes # 0.090 H Neutrophils # 13.0 H Lymphocytes # 0.5 L Monocytes # 0.4 Eosinophils # 0.1 Basophils # 0.0 Nucleated Red Blood Cells # 0.0 Sodium Level 152 H Potassium Level 3.3 L Chloride Level 115 H Carbon Dioxide Level 31 Anion Gap 6 Blood Urea Nitrogen 22 H Creatinine 0.93 Est Glomerular Filtrat Rate mL/min Glucose Level 173 Calcium Level 9.0 Phosphorus Level 2.5 Magnesium Level 2.0 Subjective 24 Hr Interval Summary Free Text/Dictation no acute events, BP stable, afebrile, Exam/Review of Systems Vital Signs Vitals Vital Signs Date Temp Pulse Resp B/P (MAP) Pulse Ox O2 O2 Flow FiO2 Time Delivery Rate 06/04/18 60 12:00 06/04/18 98.8 16 150/67 99 11:40 (94) 06/04/18 5.0 10:40 06/04/18 Aerosol 28 09:51 Mask Intake and Output 06/03/18 06/03/18 06/04/18 1515:00 23:00 07:00 IntakeIntake Total 200 ml 1225 ml 1150 ml OutputOutput Total 1500 ml 1200 ml BalanceBalance 200 ml -275 ml -50 ml Exam Constitutional: alert, oriented (x2), other (Tracheostomy) Respiratory: normal air movement, other (Status post tracheostomy, on trach collar. 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 Mostly bedbound currently.) Medications Medications Current Medications Acetaminophen/ Hydrocodone Bitart (Lortab Liq) 15 ml TID PRN GTB PAIN; Start 05/28/18 at 15:30 Tamsulosin HCl (Flomax) 0.4 mg HS PO Last administered on 06/03/18at 21:20; Admin Dose 0.4 MG; Start 05/28/18 at 21:00 IV Flush (NS 3 ml) 3 ml PER PROTOCOL IV ; Start 05/28/18 at 15:30 Ondansetron HCl (Zofran Inj) 4 mg Q6H PRN IV NAUSEA AND/OR VOMITING; Start 05/28/18 at 15:30; Status Hold Acetaminophen (Tylenol Supp) 650 mg Q6H PRN [place] PAIN LEVEL 1-3 OR FEVER; Start 05/28/18 at 15:30 Bisacodyl (Dulcolax Supp) 10 mg DAILY PRN [place] CONSTIPATION; Start 05/28/18 at 15:30 Famotidine (Pepcid Iv) 20 mg Q12 IV Last administered on 06/04/18at 09:19; Admin Dose 20 MG; Start 05/28/18 at 21:00 Heparin Sodium (Porcine) (Heparin (5000 Units/1ml)) 5,000 unit Q8 SC Last administered on 06/04/18at 14:16; Admin Dose 5,000 UNIT; Start 05/28/18 at 22:00 Morphine Sulfate (morphine SULFATE (PF)) 2 mg Q4H PRN IV PAIN LEVEL 7-10 Last administered on 06/04/18 12:43; Admin Dose 2 MG; Start 05/31/18 at 14:30 Levothyroxine Sodium (Synthroid) 100 mcg DAILY@06 GTB Last administered on 06/04/18 06:03; Admin Dose 100 MCG; Start 06/02/18 at 06:00 Caspofungin 50 mg/ Sodium Chloride 250 ml @ 250 mls/hr Q24H IVPB Last administered on 06/03/18 15:21; Admin Dose 250 MLS/HR; Start 06/03/18 at 16:00 Colistimethate Sodium (Colistin Inhal) 75 mg BID RESP THERAPY NEB Last administered on 06/04/18 09:51; Admin Dose 75 MG; Start 06/02/18 at 20:00 Potassium Chloride (Potassium Chloride Pwd/Soln) 40 meq DAILY GTB Last administered on 06/04/18 09:20; Admin Dose 40 MEQ; Start 06/03/18 at 11:00 Levofloxacin (Levaquin) 500 mg DAILY@06 GTB ; Start 06/05/18 at 06:00; Stop 06/15/18 at 05:59 Cefepime HCl 50 ml @ 100 mls/hr Q8 IVPB Last administered on 06/04/18 14:11; Admin Dose 100 MLS/HR; Start 06/04/18 at 14:00; Stop 06/06/18 at 06:29 AMANDA WHYTE MD Jun 04, 2018 14:22
[2018-06-04] MEDS: CASPOFUNGIN 50 MG in SOD CHLORIDE 0.9% 250 ML IVPB SCH (17:40)
[2018-06-04] MEDS: TAMSULOSIN (SR) 0.4 MG CAP PO SCH (21:37)
[2018-06-05] VITALS (16 sets, daily range): BP systolic 112–140; BP diastolic 56–65; PULSE 54–88; RESP 18–20
[2018-06-05] MEDS: morphine SULFATE/PF (2 MG/2 ML) SYG IV PRN (02:15)
[2018-06-05] MEDS: CEFEPIME 1GM/50 ML IVPB SCH ×3 (05:15→21:59)
[2018-06-05] MEDS: LEVOFLOXACIN 500 MG TAB GTB SCH (05:16)
[2018-06-05] MEDS: LEVOTHYROXINE 100 MCG TAB GTB SCH (05:16)
[2018-06-05] MEDS: HEPARIN 5,000 UNIT/1 ML VIAL SC SCH ×3 (06:41→22:17)
[2018-06-05] MEDS: FAMOTIDINE 20 MG INJ IV SCH ×2 (08:38→21:59)
[2018-06-05] MEDS: POTASSIUM CHLORIDE 20 MEQ POWDER FOR ORAL SOLN GTB SCH (08:38)
[2018-06-05] MEDS: COLISTIMETHATE (25 MG/ML INHAL SYG) NEB SCH ×2 (09:01→20:46)
--- NOTE | 2018-06-05 13:16 | PN ---
Date/Time of Note Date/Time of Note DATE: 06/05/18 TIME: 13:16 Assessment/Plan VTE Prophylaxis [place] [facility] risk: 10 SCD applied (from [facility]): Yes Pharmacological prophylaxis: heparin Lines/Catheters IV [facility] Type (from [facility]): PICC Line Central line still needed: Yes Urinary Cath still in place: Yes Reason Cath still needed: urinary retention Assessment/Plan Assessment/Plan 1. Severe electrolytes abnormalities including hypokalemia, hypomagnesemia, hypophosphatemia, hypercalcemia and hypernatremia all secondary to severe d ysphasia, dehydration, decreased p.o. intake in setting of laryngeal carcinoma and no other p.o. access currently. Hypercalcemia now resolved and off note he also got Pamidronate at [facility] this past admission there. Monitor electrolytes closely, replete as needed 2. Severe dysphagia, progressed to dysphagia to even liquid, patient needs his PEG tube replaced. Repeat CT chest and neck with IV contrast overnight he showed recurrence of the tumor likely, GI has been consulted, S/p PEG tube placement, tube feeding on board along with free water. Tolerated well so far. Appreciate GI assistance. 3. Acute kidney injury secondary to prerenal azotemia and severe dehydration, already resolved post hydration. Monitor renal function and correcting electrolytes. 4. Leukocytosis, chest x-ray does not show any infiltrates, unclear if patient has tracheobronchitis or early aspiration pneumonia. Still persistent leukocytosis. Sputum Gram cx with E. coli, Klebsiella and Yue albicans, appreciate infectious disease recommendations, patient now on caspofungin, colistin inhaled and Zosyn being continued. Vancomycin discontinued last dose was 06/02. Urine culture and blood cultures remain negative. 5. Hypothyroidism: Back to po Synthroid 100 mcg daily via PEG tube. Repeat TFTs in 4-6 weeks. 6. Laryngeal squamous cell carcinoma, concerns for recurrence given the recurring severe dysphagia of the patient. CT soft tissue neck and chest with IV contrast done overnight and again it is seen that the patient does have a mass there, unclear what he had left post surgery, I have informed the patient's that she will be given the CAT scan report and that she can request the images so she can take it to her outpatient oncologist is Dr. Markham [place] [facility] [place] and they can make further decision regarding additional treatment if available and needed. 7. 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 Appreciate infectious disease, antibiotic adjusted for polymicrobial tracheobronchitis. Continue pulmonary toilet, patient still with lots of secretions from tracheostomy. 8. Severe protein calorie malnutrition, secondary to significantly decreased p.o. intake. Low prealbumin. Now on tube feedings, which should help nutritional status. 9. Encephalopathy, likely metabolic. Monitor mental status closely. CT head negative for acute findings Restraints.- renewed today Prophylaxis: Heparin subcutaneous for DVT prophylaxis, Pepcid for GI prophylaxis Disposition: still requiring restrains for AMS, need to be off restraints for SNF placement Result Diagram: 06/05/18 0513 06/05/1813 Results 24hrs Laboratory Tests Test 06/05/18 05:13 White Blood Count 13.3 H Red Blood Count 3.23 L Hemoglobin 9.8 L Hematocrit 30.7 L Mean Corpuscular Volume 95.0 Mean Corpuscular Hemoglobin 30.3 Mean Corpuscular Hemoglobin Concent 31.9 L Red Cell Distribution Width 16.0 H Platelet Count 131 L Mean Platelet Volume 10.8 H Immature Granulocytes % 0.500 H Neutrophils % 93.0 H Lymphocytes % 2.9 L Monocytes % 2.9 Eosinophils % 0.5 Basophils % 0.2 Nucleated Red Blood Cells % 0.0 Immature Granulocytes # 0.060 H Neutrophils # 12.4 H Lymphocytes # 0.4 L Monocytes # 0.4 Eosinophils # 0.1 Basophils # 0.0 Nucleated Red Blood Cells # 0.0 Prothrombin Time 14.1 Prothrombin Time Ratio 1.1 INR International Normalized Ratio 1.08 Activated Partial Thromboplast Time 44.7 H Sodium Level 150 H Potassium Level 3.2 L Chloride Level 116 H Carbon Dioxide Level 30 Anion Gap 4 L Blood Urea Nitrogen 24 H Creatinine 0.85 Est Glomerular Filtrat Rate mL/min Glucose Level 167 Calcium Level 9.0 Magnesium Level 2.1 Exam/Review of Systems Vital Signs Vitals Vital Signs Date Temp Pulse Resp B/P (MAP) Pulse Ox O2 O2 Flow FiO2 Time Delivery Rate 06/05/18 64 12:00 06/05/18 97.8 18 124/56 100 Trach 11:56 (78) Collar 06/05/18 5.0 11:07 06/05/18 28 09:11 Intake and Output 06/04/18 06/04/18 06/05/18 1515:00 23:00 07:00 IntakeIntake Total 350 ml 1520 ml OutputOutput Total 900 ml BalanceBalance 350 ml 620 ml Medications Medications Current Medications Acetaminophen/ Hydrocodone Bitart (Lortab Liq) 15 ml TID PRN GTB PAIN; Start 05/28/18 at 15:30 Tamsulosin HCl (Flomax) 0.4 mg HS PO Last administered on 06/04/18at 21:37; Admin Dose 0.4 MG; Start 05/28/18 at 21:00 IV Flush (NS 3 ml) 3 ml PER PROTOCOL IV ; Start 05/28/18 at 15:30 Ondansetron HCl (Zofran Inj) 4 mg Q6H PRN IV NAUSEA AND/OR VOMITING; Start at 15:30; Status Hold Acetaminophen (Tylenol Supp) 650 mg Q6H PRN [place] PAIN LEVEL 1-3 OR FEVER; Start 05/28/18 at 15:30 Bisacodyl (Dulcolax Supp) 10 mg DAILY PRN [place] CONSTIPATION; Start 05/28/18 at 15:30 Famotidine (Pepcid Iv) 20 mg Q12 IV Last administered on 06/05/18 08:38; Admin Dose 20 MG; Start 05/28/18 at 21:00 Heparin Sodium (Porcine) (Heparin (5000 Units/1ml)) 5,000 unit Q8 SC Last administered on 06/05/18 06:41; Admin Dose 5,000 UNIT; Start 05/28/18 at 22:00 Morphine Sulfate (morphine SULFATE (PF)) 2 mg Q4H PRN IV PAIN LEVEL 7-10 Last administered on 06/05/18 02:15; Admin Dose 2 MG; Start 05/31/18 at 14:30 Levothyroxine Sodium (Synthroid) 100 mcg DAILY@06 GTB Last administered on 06/05/18 05:16; Admin Dose 100 MCG; Start 06/02/18 at 06:00 Caspofungin 50 mg/ Sodium Chloride 250 ml @ 250 mls/hr Q24H IVPB Last administered on 06/04/18at 17:40; Admin Dose 250 MLS/HR; Start 06/03/18 at 16:00 Colistimethate Sodium (Colistin Inhal) 75 mg BID RESP THERAPY NEB Last administered on 06/05/18at 09:01; Admin Dose 75 MG; Start 06/02/18 at 20:00 Potassium Chloride (Potassium Chloride Pwd/Soln) 40 meq DAILY GTB Last administered on 06/05/18at 08:38; Admin Dose 40 MEQ; Start 06/03/18 at 11:00 Levofloxacin (Levaquin) 500 mg DAILY@06 GTB Last administered on 06/05/18at 05:16; Admin Dose 500 MG; Start 06/05/18 at 06:00; Stop 06/15/18 at 05:59 Cefepime HCl 50 ml @ 100 mls/hr Q8 IVPB Last administered on 06/05/18at 05:15; Admin Dose 100 MLS/HR; Start 06/04/18 at 14:00; Stop 06/06/18 at 06:29 AMANDA WHYTE MD Jun 05, 2018 13:16
[2018-06-05] MEDS: D5W + KCL 20 MEQ 1,000 ML IV SCH (15:21)
[2018-06-05] MEDS: CASPOFUNGIN 50 MG in SOD CHLORIDE 0.9% 250 ML IVPB SCH (15:21)
--- NOTE | 2018-06-05 17:46 | CONS ---
Date/Time of Note Date/Time of Note DATE: 06/05/18 TIME: 17:43 Assessment/Plan Assessment/Plan Hospital Course ID PROGRESS NOTE CURRENT ABX: DAY # 9=> + Cancidas + Colistin INH + Cefepime #2 + Levaquin #1 DC Zosyn 06/04 s/p Vanco IV 06/04/18 0529 06/04/18 0529 24H INTERVAL SUMMARY * Stable on trach mask --- trach site w/moist yellow-guzman colored secretions, no fevers, VSS, WBC downtrending MICRO * 05/31/18 BCx (-) * 05/28/18 Resp Cx RESPIRATORY CULTURE Final Organism 1 PSEUDOMONAS AERUGINOSA QUANTITY 1+ Organism 2 K.PNEUMONIAE SSP PNEUMONIAE QUANTITY SCANT GROWTH Organism 3 MAURICE ALBICANS QUANTITY 2+ Pseudomonas aeruginosa: Meropenem ARLEY 0.5 Susceptible. P.AERUG K PNE SPP M.I.C. RX M.I.C. RX --------- --- --------- --- AMIKACIN <=2 S AZTREONAM I CEFAZOLIN I CEFEPIME 2 S CEFOTAXIME S CEFTAZIDIME 4 S CIPROFLOXACIN <=0.25 S <=0.25 S GENTAMICIN <=1 S <=1 S LEVOFLOXACIN 2 S <=0.12 S TOBRAMYCIN <=1 S <=1 S TRIMETHOPRIM/SULFAMETHOXAZOLE <=20 S PIPERACILLIN/TAZOBACTAM >=128 R * 05/28/18 (-)MRSA * 05/28/18 Urine Cx (-) PHYSICAL EXAMINATION: GENERAL: Afebrile, VSS, HEENT: AT, NC, anicteric NECK: Supple, tracheostomy with surrounding hyperkeratotic, erythematous skin changes,?hx of XRT == Trach mask CHEST: Equal chest rise bilaterally, without dyspnea on observation HEART: Pulse RRR ABDOMEN: New Peg EXTREMITIES: Warm, no edema SKIN: No rash, no diaphoresis ID ASSESSMENT 77 yo M admit with: 1. SIRS w/low grade temps, leukocytosis 2. Bilateral HCAP per CXR w/bilateral lung infiltrates * HCAP: Aspiration * 05/28/18 Resp Cx 05/28/18 Resp Cx RESPIRATORY CULTURE Final Organism 1 PSEUDOMONAS AERUGINOSA Organism 2 K.PNEUMONIAE SSP PNEUMONIAE Organism 3 MAURICE ALBICANS 3. Laryngeal carcinoma w/Tracheostomy * Suspect prior XRT due to skin changes at trach, neck, chest site 4. Dysphagia s/p PEG 05/30/18 5. Recurrent aspiration syndrome 6. Hypothyroidism 7. Protein calorie malnutrition w/hypalbuminemia 8. Acute renal insufficiency -- improved 9. Electrolyte abnormalities: Hypernatremia, hypercalcemia, hypokalemia (-)MRSA Nares ABX ALLERGIES: NKDA INVASIVES: PICC, Trach, Peg CURRENT ABX: DAY # 9=> + Cancidas + Colistin INH + Cefepime #2 + Levaquin #1 DC Zosyn 06/04 s/p Vanco IV ID RECOMMENDATIONS/PLAN: Started Colistin INH via trach mask to offload trach pathogens Started Cancidas IV to cover yeast -- not able to Rx Diflucan due to drug drug allergies w/pain meds and Zofran Started Levaquin 500mg via GT -- DC Cefepime after am dose * FINAL ID RECOMMENDATIONS: DC PLANNING * May DC when cleared by Primary on Levaquin 500mg via GT x 10 to cover GNR pathogens * Consider Diflucan 50mg via GT daily for yeast . Result Diagram: 06/05/1813 06/05/18 0513 Results 24hrs Laboratory Tests Test 06/05/18 05:13 White Blood Count 13.3 H Red Blood Count 3.23 L Hemoglobin 9.8 L Hematocrit 30.7 L Mean Corpuscular Volume 95.0 Mean Corpuscular Hemoglobin 30.3 Mean Corpuscular Hemoglobin Concent 31.9 L Red Cell Distribution Width 16.0 H Platelet Count 131 L Mean Platelet Volume 10.8 H Immature Granulocytes % 0.500 H Neutrophils % 93.0 H Lymphocytes % 2.9 L Monocytes % 2.9 Eosinophils % 0.5 Basophils % 0.2 Nucleated Red Blood Cells % 0.0 Immature Granulocytes # 0.060 H Neutrophils # 12.4 H Lymphocytes # 0.4 L Monocytes # 0.4 Eosinophils # 0.1 Basophils # 0.0 Nucleated Red Blood Cells # 0.0 Prothrombin Time 14.1 Prothrombin Time Ratio 1.1 INR International Normalized Ratio 1.08 Activated Partial Thromboplast Time 44.7 H Sodium Level 150 H Potassium Level 3.2 L Chloride Level 116 H Carbon Dioxide Level 30 Anion Gap 4 L Blood Urea Nitrogen 24 H Creatinine 0.85 Est Glomerular Filtrat Rate mL/min Glucose Level 167 Calcium Level 9.0 Magnesium Level 2.1 Consultation Date/Type/Reason Admit Date/Time May 28, 2018 at 13:33 Initial Consult Date 05/29/18 Exam/Review of Systems Vital Signs Vitals Vital Signs Date Temp Pulse Resp B/P (MAP) Pulse Ox O2 O2 Flow FiO2 Time Delivery Rate 06/05/18 5.0 28 16:14 06/05/18 61 16:00 06/05/18 20 100 Aerosol 15:50 06/05/18 98.3 121/58 15:00 (79) Intake and Output 06/04/18 06/04/18 06/05/18 1515:00 23:00 07:00 IntakeIntake Total 350 ml 1520 ml OutputOutput Total 900 ml BalanceBalance 350 ml 620 ml Medications Medications Current Medications Acetaminophen/ Hydrocodone Bitart (Lortab Liq) 15 ml TID PRN GTB PAIN; Start 05/28/18 at 15:30 Tamsulosin HCl (Flomax) 0.4 mg HS PO Last administered on 06/04/18at 21:37; Admin Dose 0.4 MG; Start 05/28/18 at 21:00 IV Flush (NS 3 ml) 3 ml PER PROTOCOL IV ; Start 05/28/18 at 15:30 Ondansetron HCl (Zofran Inj) 4 mg Q6H PRN IV NAUSEA AND/OR VOMITING; Start 05/28/18 at 15:30; Status Hold Acetaminophen (Tylenol Supp) 650 mg Q6H PRN [place] PAIN LEVEL 1-3 OR FEVER; Start 05/28/18 at 15:30 Bisacodyl (Dulcolax Supp) 10 mg DAILY PRN [place] CONSTIPATION; Start 05/28/18 at 15:30 Famotidine (Pepcid Iv) 20 mg Q12 IV Last administered on 06/05/18at 08:38; Admin Dose 20 MG; Start 05/28/18 at 21:00 Heparin Sodium (Porcine) (Heparin (5000 Units/1ml)) 5,000 unit Q8 SC Last administered on 06/05/18 13:17; Admin Dose 5,000 UNIT; Start 05/28/18 at 22:00 Morphine Sulfate (morphine SULFATE (PF)) 2 mg Q4H PRN IV PAIN LEVEL 7-10 Last administered on 06/05/18 02:15; Admin Dose 2 MG; Start 05/31/18 at 14:30 Levothyroxine Sodium (Synthroid) 100 mcg DAILY@06 GTB Last administered on 06/05/18 05:16; Admin Dose 100 MCG; Start 06/02/18 at 06:00 Caspofungin 50 mg/ Sodium Chloride 250 ml @ 250 mls/hr Q24H IVPB Last admin istered on 06/05/18 15:21; Admin Dose 250 MLS/HR; Start 06/03/18 at 16:00 Colistimethate Sodium (Colistin Inhal) 75 mg BID RESP THERAPY NEB Last administered on 06/05/18 09:01; Admin Dose 75 MG; Start 06/02/18 at 20:00 Potassium Chloride (Potassium Chloride Pwd/Soln) 40 meq DAILY GTB Last admin istered on 06/05/18 08:38; Admin Dose 40 MEQ; Start 06/03/18 at 11:00 Levofloxacin (Levaquin) 500 mg DAILY@06 GTB Last administered on 06/05/18 05:16; Admin Dose 500 MG; Start 06/05/18 at 06:00; Stop 06/15/18 at 05:59 Cefepime HCl 50 ml @ 100 mls/hr Q8 IVPB Last administered on 06/05/18 13:12; Admin Dose 100 MLS/HR; Start 06/04/18 at 14:00; Stop 06/06/18 at 06:29 Potassium Chloride/Dextrose 1,000 ml @ 70 mls/hr [id number] IV Last administered on 06/05/18 15:21; Admin Dose 70 MLS/HR; Start 06/05/18 at 14:30; Stop 06/06/18 at 19:04 BURAK GUERRERO NP Jun 05, 2018 17:46
[2018-06-05] MEDS: TAMSULOSIN (SR) 0.4 MG CAP PO SCH (21:59)
[2018-06-06] VITALS (18 sets, daily range): BP systolic 113–144; BP diastolic 55–69; PULSE 56–76; RESP 18–22
[2018-06-06] MEDS: CEFEPIME 1GM/50 ML IVPB SCH (06:36)
[2018-06-06] MEDS: D5W + KCL 20 MEQ 1,000 ML IV SCH (06:36)
[2018-06-06] MEDS: LEVOTHYROXINE 100 MCG TAB GTB SCH (06:36)
[2018-06-06] MEDS: LEVOFLOXACIN 500 MG TAB GTB SCH (06:36)
[2018-06-06] MEDS: HEPARIN 5,000 UNIT/1 ML VIAL SC SCH ×3 (06:41→21:14)
[2018-06-06] MEDS: COLISTIMETHATE (25 MG/ML INHAL SYG) NEB SCH ×2 (08:37→20:15)
[2018-06-06] MEDS: FAMOTIDINE 20 MG INJ IV SCH (09:02)
[2018-06-06] MEDS: POTASSIUM CHLORIDE 20 MEQ POWDER FOR ORAL SOLN GTB SCH (09:02)
[2018-06-06] MEDS: morphine SULFATE/PF (2 MG/2 ML) SYG IV PRN ×2 (09:27→14:42)
--- NOTE | 2018-06-06 12:39 | PN ---
Date/Time of Note Date/Time of Note DATE: 06/06/18 TIME: 12:39 Assessment/Plan VTE Prophylaxis Risk score (from [facility] [place]0 risk: 8 SCD applied (from [facility]): Yes Pharmacological prophylaxis: heparin Lines/Catheters IV Catheter Type (from [facility]): PICC Line Central line still needed: Yes (difficult peripheral access ) Urinary Cath still in place: Yes Reason Cath still needed: urinary retention Assessment/Plan Assessment/Plan 1. Severe electrolytes abnormalities including hypokalemia, hypomagnesemia, hypophosphatemia, hypercalcemia and hypernatremia all secondary to severe dysphasia, dehydration, decreased p.o. intake in setting of laryngeal carcinoma and no other p.o. access currently. Hypercalcemia now resolved and off note he also got Pamidronate at [facility] this past admission there. Monitor electrolytes closely, replete as needed Follow-up BMP every morning. 2. Severe dysphagia, progressed to dysphagia to even liquid, patient needs his PEG tube replaced. Repeat CT chest and neck with IV contrast overnight he showed recurrence of the tumor likely, GI has been consulted, S/p PEG tube placement, tube feeding on board along with free water. Tolerated well so far. Appreciate GI assistance. 3. Acute kidney injury secondary to prerenal azotemia and severe dehydration, already resolved post hydration. Monitor renal function and correcting electrolytes. 4. Leukocytosis, chest x-ray does not show any infiltrates, unclear if patient has tracheobronchitis or early aspiration pneumonia. Still persistent le ukocytosis. Sputum Gram cx with E. coli, Klebsiella and Yue albicans, appreciate infectious disease recommendations, patient now on caspofungin, colistin inhaled and Zosyn being continued. Vancomycin discontinued last dose was 06/02. Urine culture and blood cultures remain negative. 5. Hypothyroidism: Back to po Synthroid 100 mcg daily via PEG tube. Repeat TFTs in 4-6 weeks. 6. Laryngeal squamous cell carcinoma, concerns for recurrence given the recurring severe dysphagia of the patient. CT soft tissue neck and chest with IV contrast done overnight and again it is seen that the patient does have a mass there, unclear what he had left post surgery, I have informed the patient's that she will be given the CAT scan report and that she can request the images so she can take it to [place] [facility] [place] make further decision regarding additional treatment if available and needed. 7. 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 Appreciate infectious disease, antibiotic adjusted for polymicrobial tracheobronchitis. Continue pulmonary toilet, patient still with lots of secretions from tracheostomy. 8. Severe protein calorie malnutrition, secondary to significantly decreased p.o. intake. Low prealbumin. Now on tube feedings, which should help nutritional status. 9. Encephalopathy, likely metabolic. Monitor mental status closely. CT head negative for acute findings Restraints.- renewed today Prophylaxis: Heparin subcu for DVT prophylaxis, Pepcid for GI prophylaxis Disposition: Status post PEG tube placement, now can use p.o. access and hyponatremia improving slowly. Will continue current tube feedings along with free water and electrolyte replacement aggressively via PEG tube. Result Diagram: 06/06/180 06/06/18 0440 Results 24hrs Laboratory Tests Test 06/06/18 04:40 White Blood Count 16.0 #H Red Blood Count 3.22 L Hemoglobin 9.7 L Hematocrit 30.1 L Mean Corpuscular Volume 93.5 Mean Corpuscular Hemoglobin 30.1 Mean Corpuscular Hemoglobin Concent 32.2 Red Cell Distribution Width 16.0 H Platelet Count 125 L Mean Platelet Volume 11.2 H Immature Granulocytes % 0.400 Neutrophils % 93.7 H Lymphocytes % 2.8 L Monocytes % 2.6 Eosinophils % 0.3 Basophils % 0.2 Nucleated Red Blood Cells % 0.0 Immature Granulocytes # 0.070 H Neutrophils # 15.0 H Lymphocytes # 0.5 L Monocytes # 0.4 Eosinophils # 0.1 Basophils # 0.0 Nucleated Red Blood Cells # 0.0 Prothrombin Time 13.9 Prothrombin Time Ratio 1.1 INR International Normalized Ratio 1.06 Activated Partial Thromboplast Time 40.5 H Sodium Level 148 H Potassium Level 3.3 L Chloride Level 115 H Carbon Dioxide Level 30 Anion Gap 3 L Blood Urea Nitrogen 24 H Creatinine 0.83 Est Glomerular Filtrat Rate mL/min Glucose Level 200 Calcium Level 9.3 Magnesium Level 2.0 Total Bilirubin 0.0 L Direct Bilirubin 0.00 Indirect Bilirubin 0.0 Aspartate Amino Transf (AST/SGOT) 21 Alanine Aminotransferase (ALT/SGPT) 20 Alkaline Phosphatase 83 Total Protein 5.5 L Albumin 2.6 L Globulin 2.90 Albumin/Globulin Ratio 0.89 Exam/Review of Systems Vital Signs Vitals Vital Signs Date Temp Pulse Resp B/P (MAP) Pulse Ox O2 O2 Flow FiO2 Time Delivery Rate 06/06/18 98.0 61 22 124/58 96 T Tube 11:29 (80) Trach Collar 06/06/18 5.0 28 11:02 Intake and Output 06/05/18 06/05/18 06/06/18 1515:00 23:00 07:00 IntakeIntake Total 1620 ml 1320 ml OutputOutput Total 750 ml 1450 ml BalanceBalance 870 ml -130 ml Exam Constitutional: alert, oriented (x2), other (Tracheostomy) Respiratory: normal air movement, other (Status post tracheostomy, on trach collar. 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 Mostly bedbound currently.) Medications Medications Current Medications Acetaminophen/ Hydrocodone Bitart (Lortab Liq) 15 ml TID PRN GTB PAIN; Start 05/28/18 at 15:30 Tamsulosin HCl (Flomax) 0.4 mg HS PO Last administered on 06/05/18at 21:59; Admin Dose 0.4 MG; Start 05/28/18 at 21:00 IV Flush (NS 3 ml) 3 ml PER PROTOCOL IV ; Start 05/28/18 at 15:30 Ondansetron HCl (Zofran Inj) 4 mg Q6H PRN IV NAUSEA AND/OR VOMITING; Start 05/28/18 at 15:30; Status Hold Acetaminophen (Tylenol Supp) 650 mg Q6H PRN [place] PAIN LEVEL 1-3 OR FEVER; Start 05/28/18 at 15:30 Bisacodyl (Dulcolax Supp) 10 mg DAILY PRN [place] CONSTIPATION; Start 05/28/18 at 15:30 Famotidine (Pepcid Iv) 20 mg Q12 IV Last administered on 06/06/18at 09:02; Admin Dose 20 MG; Start 05/28/18 at 21:00 Heparin Sodium (Porcine) (Heparin (5000 Units/1ml)) 5,000 unit Q8 SC Last administered on 06/06/18 06:41; Admin Dose 5,000 UNIT; Start 05/28/18 at 22:00 Morphine Sulfate (morphine SULFATE (PF)) 2 mg Q4H PRN IV PAIN LEVEL 7-10 Last administered on 06/06/18 09:27; Admin Dose 2 MG; Start 05/31/18 at 14:30 Levothyroxine Sodium (Synthroid) 100 mcg DAILY@06 GTB Last administered on 06/06/18 06:36; Admin Dose 100 MCG; Start 06/02/18 at 06:00 Caspofungin 50 mg/ Sodium Chloride 250 ml @ 250 mls/hr Q24H IVPB Last administered on 06/05/18 15:21; Admin Dose 250 MLS/HR; Start 06/03/18 at 16:00 Colistimethate Sodium (Colistin Inhal) 75 mg BID RESP THERAPY NEB Last a dministered on 06/06/18 08:37; Admin Dose 75 MG; Start 06/02/18 at 20:00 Potassium Chloride (Potassium Chloride Pwd/Soln) 40 meq DAILY GTB Last administered on 06/06/18 09:02; Admin Dose 40 MEQ; Start 06/03/18 at 11:00 Levofloxacin (Levaquin) 500 mg DAILY@06 GTB Last administered on 06/06/18 06: 36; Admin Dose 500 MG; Start 06/05/18 at 06:00; Stop 06/15/18 at 05:59 Potassium Chloride/Dextrose 1,000 ml @ 70 mls/hr [id number] IV Last administered on 06/06/18 06:36; Admin Dose 70 MLS/HR; Start 06/05/18 at 14:30; Stop 06/06/18 at 19:04 AMANDA WHYTE MD Jun 06, 2018 12:39
--- NOTE | 2018-06-06 15:05 | CONS ---
Date/Time of Note Date/Time of Note DATE: 06/06/18 TIME: 15:04 Assessment/Plan Assessment/Plan Hospital Course Patient is awake in no distress, looks comfortable no fevers overnight WBC 16 H&H 9.7 and 30.1 platelets 125 neutrophils 93.7 BUN 24 creatinine 0.83 Microbiology: Endotracheal aspirate grew Klebsiella pneumonia Pseudomonas and Yue albicans Antimicrobials: Levofloxacin Cancidas Indwelling's: Trach PEG Burns PICC line Physical examination: This is a chronically ill-appearing elderly man who is in no distress. Head atraumatic normocephalic sclera nonicteric. Neck is swollen, obese tracheostomy present. Chest rise symmetrical breath sounds diminished bases heart: S1-S2. Abdomen soft bowel sounds present. Extremities without cyanosis. Assessment: 1. Sepsis 2. Healthcare associated pneumonia 3. Invasive laryngeal cancer status post tracheostomy 4. Dysphagia 5. Acute kidney injury 6. Encephalopathy Plan: Patient is clinically stable, on appropriate antibiotics which we will continue to complete at least 2 weeks given possible ongoing aspiration Result Diagram: 06/06/180 06/06/18 0440 Results 24hrs Laboratory Tests Test 06/06/18 04:40 White Blood Count 16.0 #H Red Blood Count 3.22 L Hemoglobin 9.7 L Hematocrit 30.1 L Mean Corpuscular Volume 93.5 Mean Corpuscular Hemoglobin 30.1 Mean Corpuscular Hemoglobin Concent 32.2 Red Cell Distribution Width 16.0 H Platelet Count 125 L Mean Platelet Volume 11.2 H Immature Granulocytes % 0.400 Neutrophils % 93.7 H Lymphocytes % 2.8 L Monocytes % 2.6 Eosinophils % 0.3 Basophils % 0.2 Nucleated Red Blood Cells % 0.0 Immature Granulocytes # 0.070 H Neutrophils # 15.0 H Lymphocytes # 0.5 L Monocytes # 0.4 Eosinophils # 0.1 Basophils # 0.0 Nucleated Red Blood Cells # 0.0 Prothrombin Time 13.9 Prothrombin Time Ratio 1.1 INR International Normalized Ratio 1.06 Activated Partial Thromboplast Time 40.5 H Sodium Level 148 H Potassium Level 3.3 L Chloride Level 115 H Carbon Dioxide Level 30 Anion Gap 3 L Blood Urea Nitrogen 24 H Creatinine 0.83 Est Glomerular Filtrat Rate mL/min Glucose Level 200 Calcium Level 9.3 Magnesium Level 2.0 Total Bilirubin 0.0 L Direct Bilirubin 0.00 Indirect Bilirubin 0.0 Aspartate Amino Transf (AST/SGOT) 21 Alanine Aminotransferase (ALT/SGPT) 20 Alkaline Phosphatase 83 Total Protein 5.5 L Albumin 2.6 L Globulin 2.90 Albumin/Globulin Ratio 0.89 Consultation Date/Type/Reason Admit Date/Time May 28, 2018 at 13:33 Initial Consult Date 05/29/18 Type of Consult id Exam/Review of Systems Vital Signs Vitals Vital Signs Date Temp Pulse Resp B/P (MAP) Pulse Ox O2 O2 Flow FiO2 Time Delivery Rate 06/06/18 100 5.0 28 12:43 06/06/18 63 22 Aerosol 12:43 T Tube 06/06/18 98.0 124/58 11:29 (80) Intake and Output 06/05/18 06/05/18 06/06/18 1515:00 23:00 07:00 IntakeIntake Total 1620 ml 1320 ml OutputOutput Total 750 ml 1450 ml BalanceBalance 870 ml -130 ml Medications Medications Current Medications Acetaminophen/ Hydrocodone Bitart (Lortab Liq) 15 ml TID PRN GTB PAIN; Start 05/28/18 at 15:30 Tamsulosin HCl (Flomax) 0.4 mg HS PO Last administered on 06/05/18 21:59; Admin Dose 0.4 MG; Start 05/28/18 at 21:00 IV Flush (NS 3 ml) 3 ml PER PROTOCOL IV ; Start 05/28/18 at 15:30 Ondansetron HCl (Zofran Inj) 4 mg Q6H PRN IV NAUSEA AND/OR VOMITING; Start 05/28/18 at 15:30; Status Hold Acetaminophen (Tylenol Supp) 650 mg Q6H PRN [place] PAIN LEVEL 1-3 OR FEVER; Start 05/28/18 at 15:30 Bisacodyl (Dulcolax Supp) 10 mg DAILY PRN [place] CONSTIPATION; Start 05/28/18 at 15:30 Famotidine (Pepcid Iv) 20 mg Q12 IV Last administered on 06/06/18 09:02; Admin Dose 20 MG; Start 05/28/18 at 21:00 Heparin Sodium (Porcine) (Heparin (5000 Units/1ml)) 5,000 unit Q8 SC Last administered on 06/06/18 14:45; Admin Dose 5,000 UNIT; Start 05/28/18 at 22:00 Morphine Sulfate (morphine SULFATE (PF)) 2 mg Q4H PRN IV PAIN LEVEL 7-10 Last administered on 06/06/18 14:42; Admin Dose 2 MG; Start 05/31/18 at 14:30 Levothyroxine Sodium (Synthroid) 100 mcg DAILY@06 GTB Last administered on 06/06/18 06:36; Admin Dose 100 MCG; Start 06/02/18 at 06:00 Caspofungin 50 mg/ Sodium Chloride 250 ml @ 250 mls/hr Q24H IVPB Last administered on 06/05/18 15:21; Admin Dose 250 MLS/HR; Start 06/03/18 at 16:00 Colistimethate Sodium (Colistin Inhal) 75 mg BID RESP THERAPY NEB Last administered on 06/06/18 08:37; Admin Dose 75 MG; Start 06/02/18 at 20:00 Potassium Chloride (Potassium Chloride Pwd/Soln) 40 meq DAILY GTB Last administered on 06/06/18 09:02; Admin Dose 40 MEQ; Start 06/03/18 at 11:00 Levofloxacin (Levaquin) 500 mg DAILY@06 GTB Last administered on 06/06/18 06:36; Admin Dose 500 MG; Start 06/05/18 at 06:00; Stop 06/15/18 at 05:59 Potassium Chloride/Dextrose 1,000 ml @ 70 mls/hr [id number] IV Last administered on 06/06/18 06:36; Admin Dose 70 MLS/HR; Start 06/05/18 at 14:30; Stop 06/06/18 at 19:04 Alteplase, Recombinant (Cathflo (Activase)) 2 mg ONCE ONCE CATHETER ; Start 06/06/18 at 15:00; Stop 06/06/18 at 15:01; Status PRASHANT SWENSON NP Jun 06, 2018 15:05
[2018-06-06] MEDS ORDERED: ALTEPLASE (CATHFLO) 2 MG INJ CATHETER ONE (15:30)
[2018-06-06] MEDS: CASPOFUNGIN 50 MG in SOD CHLORIDE 0.9% 250 ML IVPB SCH (16:26)
[2018-06-06] MEDS: TAMSULOSIN (SR) 0.4 MG CAP PO SCH (21:12)
[2018-06-06] MEDS: FAMOTIDINE 20 MG TAB GTB SCH (21:12)
[2018-06-07] VITALS (17 sets, daily range): BP systolic 116–136; BP diastolic 56–69; PULSE 51–87; RESP 17–22
[2018-06-07] MEDS: LEVOTHYROXINE 100 MCG TAB GTB SCH (07:02)
[2018-06-07] MEDS: LEVOFLOXACIN 500 MG TAB GTB SCH (07:02)
[2018-06-07] MEDS: HEPARIN 5,000 UNIT/1 ML VIAL SC SCH ×3 (07:04→20:46)
[2018-06-07] MEDS: FAMOTIDINE 20 MG TAB GTB SCH ×2 (09:01→20:47)
[2018-06-07] MEDS: POTASSIUM CHLORIDE 20 MEQ POWDER FOR ORAL SOLN GTB SCH (09:02)
[2018-06-07] MEDS: COLISTIMETHATE (25 MG/ML INHAL SYG) NEB SCH ×2 (10:05→20:17)
--- NOTE | 2018-06-07 14:51 | PN ---
Date/Time of Note Date/Time of Note DATE: 06/07/18 TIME: 14:51 Assessment/Plan VTE [place]axis [place] [facility] [place]: 9 [place] [facility] [place] [facility] [place] Yes Pharmacological prophylaxis: heparin Lines/Catheters IV Catheter Type (from [facility]): PICC Line Central line still needed: Yes (poor peripheral access ) Urinary Cath still in place: Yes Reason Cath still needed: urinary retention Assessment/Plan Assessment/Plan 1. Severe electrolytes abnormalities including hypokalemia, hypomagnesemia, hypophosphatemia, hypercalcemia and hypernatremia all secondary to severe dysphasia, dehydration, decreased p.o. intake in setting of laryngeal carcinoma and no other p.o. access currently. Hypercalcemia now resolved and off note he also got Pamidronate at [facility] this past admission there. Monitor electrolytes closely, replete as needed Follow-up BMP every morning. 2. Severe dysphagia, progressed to dysphagia to even liquid, patient needs his PEG tube replaced. Repeat CT chest and neck with IV contrast overnight he showed recurrence of the tumor likely, GI has been consulted, S/p PEG tube placement, tube feeding on board along with free water. Tolerated well so far. Appreciate GI assistance. 3. Acute kidney injury secondary to prerenal azotemia and severe dehydration, already resolved post hydration. Monitor renal function and correcting electrolytes. 4. Leukocytosis, chest x-ray does not show any infiltrates, unclear if patient has tracheobronchitis or early aspiration pneumonia. Still persistent leukocy tosis. Sputum Gram cx with E. coli, Klebsiella and Yue albicans, appreciate infectious disease recommendations, patient now on caspofungin, colistin inhaled and Zosyn being continued. Vancomycin discontinued last dose was 06/02. Urine culture and blood cultures remain negative. 5. Hypothyroidism: Back to po Synthroid 100 mcg daily via PEG tube. Repeat TFTs in 4-6 weeks. 6. Laryngeal squamous cell carcinoma, concerns for recurrence given the recurring severe dysphagia of the patient. CT soft tissue neck and chest with IV contrast done overnight and again it is seen that the patient does have a mass there, unclear what he had left post surgery, I have informed the patient's that she will be given the CAT scan report and that she can request the images so she can take it to her outpatient oncologist is Dr. Markham from [facility] and they can make further decision regarding additional treatment if available and needed. 7. 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 Continue pulmonary toilet, patient still with lots of secretions from tracheostomy. 8. Severe protein calorie malnutrition, secondary to significantly decreased p.o. intake. Low prealbumin. Now on tube feedings, which should help nutritional status. 9. Encephalopathy, likely metabolic. Monitor mental status closely. CT head negative for acute findings Restraints.- renewed today Prophylaxis: Heparin subcu for DVT prophylaxis, Pepcid for GI prophylaxis Disposition: Status post PEG tube placement, workig fine so far, electrolytes stable, pt has been on restraints due to agressive behaviour Result Diagram: 06/06/1843906/06/18439 Exam/Review of Systems Vital Signs Vitals Vital Signs Date Temp Pulse Resp B/P (MAP) Pulse Ox O2 O2 Flow FiO2 Time Delivery Rate 06/07/18 99 5.0 28 13:40 06/07/18 66 12:01 06/07/18 97.0 21 124/58 T Tube 11:02 (80) Trach Collar Intake and Output 06/06/18 06/06/18 06/07/18 1515:00 23:00 07:00 IntakeIntake Total 1570 ml 1300 ml OutputOutput Total 1400 ml 800 ml BalanceBalance 170 ml 500 ml Exam Constitutional: alert, oriented (x2), other (Tracheostomy) Respiratory: normal air movement, other (Status post tracheostomy, on trach collar. 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 Mostly bedbound currently.) Medications Medications Current Medications Acetaminophen/ Hydrocodone Bitart (Lortab Liq) 15 ml TID PRN GTB PAIN; Start 05/28/18 at 15:30 Tamsulosin HCl (Flomax) 0.4 mg HS PO Last administered on 06/06/18at 21:12; Admin Dose 0.4 MG; Start 05/28/18 at 21:00 IV Flush (NS 3 ml) 3 ml PER PROTOCOL IV ; Start 05/28/18 at 15:30 Ondansetron HCl (Zofran Inj) 4 mg Q6H PRN IV NAUSEA AND/OR VOMITING; Start 05/28/18 at 15:30; Status Hold Acetaminophen (Tylenol Supp) 650 mg Q6H PRN [place] PAIN LEVEL 1-3 OR FEVER; Start 05/28/18 at 15:30 Bisacodyl (Dulcolax Supp) 10 mg DAILY PRN [place] CONSTIPATION; Start 05/28/18 at 15:30 Heparin Sodium (Porcine) (Heparin (5000 Units/1ml)) 5,000 unit Q8 SC Last administered on 06/07/18 13:47; Admin Dose 5,000 UNIT; Start 05/28/18 at 22:00 Levothyroxine Sodium (Synthroid) 100 mcg DAILY@06 GTB Last administered on 06/07/18 07:02; Admin Dose 100 MCG; Start 06/02/18 at 06:00 Caspofungin 50 mg/ Sodium Chloride 250 ml @ 250 mls/hr Q24H IVPB Last administered on 06/06/18 16:26; Admin Dose 250 MLS/HR; Start 06/03/18 at 16:00 Colistimethate Sodium (Colistin Inhal) 75 mg BID RESP THERAPY NEB Last administered on 06/07/18 10:05; Admin Dose 75 MG; Start 06/02/18 at 20:00 Potassium Chloride (Potassium Chloride Pwd/Soln) 40 meq DAILY GTB Last administered on 06/07/18 09:02; Admin Dose 40 MEQ; Start 06/03/18 at 11:00 Levofloxacin (Levaquin) 500 mg DAILY@06 GTB Last administered on 06/07/18 0 7:02; Admin Dose 500 MG; Start 06/05/18 at 06:00; Stop 06/15/18 at 05:59 Morphine Sulfate (morphine) 6 mg Q4H PRN GTB SEVERE PAIN LEVEL 7-10; Start 06/06/18 at 16:30 Famotidine (Pepcid) 20 mg Q12 GTB Last administered on 06/07/18 09:01; Admin Dose 20 MG; Start 06/06/18 at 21:00 AMANDA WHYTE MD Jun 07, 2018 14:51
[2018-06-07] MEDS: CASPOFUNGIN 50 MG in SOD CHLORIDE 0.9% 250 ML IVPB SCH (15:51)
--- NOTE | 2018-06-07 16:41 | CONS ---
Date/Time of Note Date/Time of Note DATE: 06/07/18 TIME: 16:41 Assessment/Plan Assessment/Plan Hospital Course I do no acute events patient is awake looks comfortable denies pain. No fevers overnight. No labs this morning. Microbiology: Endotracheal aspirate grew Klebsiella pneumonia Pseudomonas and Yue albicans Antimicrobials: Levofloxacin Cancidas Indwelling's: Trach PEG Burns PICC line Physical examination: This is a chronically ill-appearing elderly man who is in no distress. Head atraumatic normocephalic sclera nonicteric. Neck is swollen, obese tracheostomy present. Chest rise symmetrical breath sounds diminished bases heart: S1-S2. Abdomen soft bowel sounds present. Extremities without cyanosis. Assessment: 1. Sepsis, resolving 2. Healthcare associated pneumonia 3. Invasive laryngeal cancer status post tracheostomy 4. Dysphagia 5. Acute kidney injury 6. Encephalopathy Plan: Patient is clinically stable, on appropriate antibiotics which we will continue to complete at least 2 weeks given possible ongoing aspiration, follow labs in a.m. Result Diagram: 06/06/18 0440 06/06/18 0440 Consultation Date/Type/Reason Admit Date/Time May 28, 2018 at 13:33 Initial Consult Date 05/29/18 Type of Consult id Exam/Review of Systems Vital Signs Vitals Vital Signs Date Temp Pulse Resp B/P (MAP) Pulse Ox O2 O2 Flow FiO2 Time Delivery Rate 06/07/18 96.8 71 18 126/62 96 T Tube 16:05 (83) Trach Collar 06/07/18 5.0 28 13:40 Intake and Output 06/06/18 06/06/18 06/07/18 1515:00 23:00 07:00 IntakeIntake Total 1570 ml 1300 ml OutputOutput Total 1400 ml 800 ml BalanceBalance 170 ml 500 ml Medications Medications Current Medications Acetaminophen/ Hydrocodone Bitart (Lortab Liq) 15 ml TID PRN GTB PAIN; Start 05/28/18 at 15:30 Tamsulosin HCl (Flomax) 0.4 mg HS PO Last administered on 06/06/18at 21:12; Admin Dose 0.4 MG; Start 05/28/18 at 21:00 IV Flush (NS 3 ml) 3 ml PER PROTOCOL IV ; Start 05/28/18 at 15:30 Ondansetron HCl (Zofran Inj) 4 mg Q6H PRN IV NAUSEA AND/OR VOMITING; Start 05/28/18 at 15:30; Status Hold Acetaminophen (Tylenol Supp) 650 mg Q6H PRN [place] PAIN LEVEL 1-3 OR FEVER; Start 05/28/18 at 15:30 Bisacodyl (Dulcolax Supp) 10 mg DAILY PRN [place] CONSTIPATION; Start 05/28/18 at 15:30 Heparin Sodium (Porcine) (Heparin (5000 Units/1ml)) 5,000 unit Q8 SC Last administered on 06/07/18 13:47; Admin Dose 5,000 UNIT; Start 05/28/18 at 22:00 Levothyroxine Sodium (Synthroid) 100 mcg DAILY@06 GTB Last administered on 06/07/18 07:02; Admin Dose 100 MCG; Start 06/02/18 at 06:00 Caspofungin 50 mg/ Sodium Chloride 250 ml @ 250 mls/hr Q24H IVPB Last administered on 06/07/18 15:51; Admin Dose 250 MLS/HR; Start 06/03/18 at 16:00 Colistimethate Sodium (Colistin Inhal) 75 mg BID RESP THERAPY NEB Last administered on 06/07/18 10:05; Admin Dose 75 MG; Start 06/02/18 at 20:00 Potassium Chloride (Potassium Chloride Pwd/Soln) 40 meq DAILY GTB Last administered on 06/07/18 09:02; Admin Dose 40 MEQ; Start 06/03/18 at 11:00 Levofloxacin (Levaquin) 500 mg DAILY@06 GTB Last administered on 06/07/18 07:02; Admin Dose 500 MG; Start 06/05/18 at 06:00; Stop 06/15/18 at 05:59 Morphine Sulfate (morphine) 6 mg Q4H PRN GTB SEVERE PAIN LEVEL 7-10; Start 06/06/18 at 16:30 Famotidine (Pepcid) 20 mg Q12 GTB Last administered on 06/07/18 09:01; Admin Dose 20 MG; Start 06/06/18 at 21:00 PRASHANT PIERCE NP Jun 07, 2018 16:41
[2018-06-07] MEDS: TAMSULOSIN (SR) 0.4 MG CAP PO SCH (20:47)
[2018-06-08] VITALS (12 sets, daily range): BP systolic 117–155; BP diastolic 57–66; PULSE 60–74; RESP 17–19
[2018-06-08] MEDS ORDERED: VITAMIN A & D 5 GM OINT PACKET TOP ONE (06:20)
[2018-06-08] MEDS: LEVOFLOXACIN 500 MG TAB GTB SCH (06:36)
[2018-06-08] MEDS: LEVOTHYROXINE 100 MCG TAB GTB SCH (06:36)
[2018-06-08] MEDS: HEPARIN 5,000 UNIT/1 ML VIAL SC SCH ×3 (06:38→22:07)
[2018-06-08] MEDS: POTASSIUM CHLORIDE 20 MEQ POWDER FOR ORAL SOLN GTB SCH (08:21)
[2018-06-08] MEDS: FAMOTIDINE 20 MG TAB GTB SCH ×2 (08:21→20:46)
--- NOTE | 2018-06-08 15:38 | CONS ---
Date/Time of Note Date/Time of Note DATE: 06/08/18 TIME: 15:36 Assessment/Plan Assessment/Plan Hospital Course No acute changes overnight patient is lying comfortably in bed no fevers WBC today 14.2 platelets 151 neutrophils 91.9 BUN 23 creatinine 0.74 Microbiology: Endotracheal aspirate grew Klebsiella pneumonia Pseudomonas and Yue albicans Antimicrobials: Levofloxacin Cancidas Colistin inhalation Indwelling's: Trach PEG Burns PICC line Physical examination: This is a chronically ill-appearing elderly man who is in no distress. Head atraumatic normocephalic sclera nonicteric. Neck is swollen, obese tracheostomy present. Chest rise symmetrical breath sounds diminished bases heart: S1-S2. Abdomen soft bowel sounds present. Extremities without cyanosis. Assessment: 1. Sepsis, resolving 2. Healthcare associated pneumonia 3. Invasive laryngeal cancer status post tracheostomy 4. Dysphagia 5. Acute kidney injury 6. Encephalopathy Plan: Patient is clinically stable, WBC trending down, continue on current antibiotics on appropriate antibiotics for 7 more days Result Diagram: 06/08/18 0548 06/08/18 0548 Results 24hrs Laboratory Tests Test 06/08/18 05:48 White Blood Count 14.2 H Red Blood Count 3.21 L Hemoglobin 9.7 L Hematocrit 30.1 L Mean Corpuscular Volume 93.8 Mean Corpuscular Hemoglobin 30.2 Mean Corpuscular Hemoglobin Concent 32.2 Red Cell Distribution Width 15.9 H Platelet Count 151 # Mean Platelet Volume 11.3 H Immature Granulocytes % 0.600 H Neutrophils % 91.9 H Lymphocytes % 3.9 L Monocytes % 3.1 Eosinophils % 0.4 Basophils % 0.1 Nucleated Red Blood Cells % 0.0 Immature Granulocytes # 0.080 H Neutrophils # 13.0 H Lymphocytes # 0.6 L Monocytes # 0.4 Eosinophils # 0.1 Basophils # 0.0 Nucleated Red Blood Cells # 0.0 Prothrombin Time 14.1 Prothrombin Time Ratio 1.1 INR International Normalized Ratio 1.08 Activated Partial Thromboplast Time 35.1 H Sodium Level 143 Potassium Level 3.4 L Chloride Level 109 Carbon Dioxide Level 31 Anion Gap 3 L Blood Urea Nitrogen 23 H Creatinine 0.74 Est Glomerular Filtrat Rate mL/min Glucose Level 158 Calcium Level 9.8 Magnesium Level 2.0 Total Bilirubin 0.0 L Direct Bilirubin 0.00 Indirect Bilirubin 0.0 Aspartate Amino Transf (AST/SGOT) 20 Alanine Aminotransferase (ALT/SGPT) 17 Alkaline Phosphatase 81 Total Protein 5.9 L Albumin 2.6 L Globulin 3.30 H Albumin/Globulin Ratio 0.78 Consultation Date/Type/Reason Admit Date/Time May 28, 2018 at 13:33 Initial Consult Date 05/29/18 Type of Consult id Exam/Review of Systems Vital Signs Vitals Vital Signs Date Temp Pulse Resp B/P (MAP) Pulse Ox O2 O2 Flow FiO2 Time Delivery Rate 06/08/18 98.1 71 18 155/57 97 11:49 (89) 06/08/18 Vapotherm 5.0 08:21 06/08/18 28 00:24 Intake and Output 06/07/18 06/07/18 06/08/18 1515:00 23:00 07:00 IntakeIntake Total 1600 ml 1370 ml OutputOutput Total 930 ml 3000 ml BalanceBalance 670 ml -1630 ml Medications Medications Current Medications Acetaminophen/ Hydrocodone Bitart (Lortab Liq) 15 ml TID PRN GTB PAIN; Start 05/28/18 at 15:30 Tamsulosin HCl (Flomax) 0.4 mg HS PO Last administered on 06/07/18 20:47; Admin Dose 0.4 MG; Start 05/28/18 at 21:00 IV Flush (NS 3 ml) 3 ml PER PROTOCOL IV ; Start 05/28/18 at 15:30 Ondansetron HCl (Zofran Inj) 4 mg Q6H PRN IV NAUSEA AND/OR VOMITING; Start 05/28/18 at 15:30; Status Hold Acetaminophen (Tylenol Supp) 650 mg Q6H PRN [place] PAIN LEVEL 1-3 OR FEVER; Start 05/28/18 at 15:30 Bisacodyl (Dulcolax Supp) 10 mg DAILY PRN [place] CONSTIPATION; Start 05/28/18 at 15:30 Heparin Sodium (Porcine) (Heparin (5000 Units/1ml)) 5,000 unit Q8 SC Last administered on 06/08/18 06:38; Admin Dose 5,000 UNIT; Start 05/28/18 at 22:00 Levothyroxine Sodium (Synthroid) 100 mcg DAILY@06 GTB Last administered on 06/08/18 06:36; Admin Dose 100 MCG; Start 06/02/18 at 06:00 Caspofungin 50 mg/ Sodium Chloride 250 ml @ 250 mls/hr Q24H IVPB Last administered on 06/07/18 15:51; Admin Dose 250 MLS/HR; Start 06/03/18 at 16:00 Colistimethate Sodium (Colistin Inhal) 75 mg BID RESP THERAPY NEB Last administered on 06/07/18 20:17; Admin Dose 75 MG; Start 06/02/18 at 20:00 Potassium Chloride (Potassium Chloride Pwd/Soln) 40 meq DAILY GTB Last administered on 06/08/18 08:21; Admin Dose 40 MEQ; Start 06/03/18 at 11:00 Levofloxacin (Levaquin) 500 mg DAILY@06 GTB Last administered on 06/08/18 06:36; Admin Dose 500 MG; Start 06/05/18 at 06:00; Stop 06/15/18 at 05:59 Morphine Sulfate (morphine) 6 mg Q4H PRN GTB SEVERE PAIN LEVEL 7-10; Start 06/06/18 at 16:30 Famotidine (Pepcid) 20 mg Q12 GTB Last administered on 06/08/18 08:21; Admin Do se 20 MG; Start 06/06/18 at 21:00 PRASHANT PIERCE NP Jun 08, 2018 15:38
[2018-06-08] MEDS: COLISTIMETHATE (25 MG/ML INHAL SYG) NEB SCH ×2 (16:04→21:22)
[2018-06-08] MEDS: CASPOFUNGIN 50 MG in SOD CHLORIDE 0.9% 250 ML IVPB SCH (16:29)
[2018-06-08] MEDS: morphine LIQ (10 MG/5 ML) CUP GTB PRN (16:30)
--- NOTE | 2018-06-08 16:33 | PN ---
Date/Time of Note Date/Time of Note DATE: 06/08/18 TIME: 16:33 Assessment/Plan VTE Prophylaxis Risk score (from Ns)>0 risk: 10 SCD applied (from Ns): Yes Pharmacological prophylaxis: heparin Lines/Catheters IV C[facility]ter Type [facility]from [facility]): PICC Line Central line still needed: Yes (IV abx and poor peripheral access ) Urinary Cath still in place: Yes Reason Cath still needed: urinary retention Assessment/Plan Assessment/Plan 1. Severe electrolytes abnormalities including hypokalemia, hypomagnesemia, hypophosphatemia, hypercalcemia and hypernatremia all secondary to severe dysphasia, dehydration, decreased p.o. intake in setting of laryngeal carcinoma and no other p.o. access currently. Hypercalcemia now resolved and off note he also got Pamidronate at [facility] this past admission there. Monitor electrolytes closely, replete as needed Follow-up BMP every morning. 2.Health Care associated PNA, on IV colistin and Cancidan as per ID 2. Severe dysphagia, progressed to dysphagia to even liquid, patient needs his PEG tube replaced. Repeat CT chest and neck with IV contrast overnight he showed recurrence of the tumor likely, GI has been consulted, S/p PEG tube placement, tube feeding on board along with free water. Tolerated well so far. Appreciate GI assistance. 3. Acute kidney injury secondary to prerenal azotemia and severe dehydration, already resolved post hydration. Monitor renal function and correcting electrolytes. 4. Leukocytosis, chest x-ray does not show any infiltrates, unclear if patient has tracheobronchitis or early aspiration pneumonia. Still persistent leukocytosis. Sputum Gram cx with E. coli, Klebsiella and Yue albicans, appreciate infectious disease recommendations, patient now on caspofungin, colistin inhaled and Zosyn being continued. Vancomycin discontinued last dose was 06/02. Urine culture and blood cultures remain negative. 5. Hypothyroidism: Back to po Synthroid 100 mcg daily via PEG tube. Repeat TFTs in 4-6 weeks. 6. Laryngeal squamous cell carcinoma, concerns for recurrence given the recurring severe dysphagia of the patient. CT soft tissue neck and chest with IV contrast done overnight and again it is seen that the patient does have a mas s there, unclear what he had left post surgery, I have informed the patient's that she will be given the CAT scan report and that she can request the images so she can take it to her outpatient oncologist is [place]. [place]ham [place] [facility] [place] and they can make further decision regarding additional treatment if available and needed. 7. 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 Continue pulmonary toilet, patient still with lots of secretions from tracheostomy. 8. Severe protein calorie malnutrition, secondary to significantly decreased p.o. intake. Low prealbumin. Now on tube feedings, which should help nutritional status. 9. Encephalopathy, likely metabolic. Monitor mental status closely. CT head negative for acute findings Restraints.- renewed today Prophylaxis: Heparin subcu for DVT prophylaxis, Pepcid for GI prophylaxis Disposition: Status post PEG tube placement, workig fine so far, electrolytes stable, will d/c his restraints today and monitor off restraints pt has to be off restraints for 24 hr before getting transferred back to [facility]F IV abx Cancidas and Colistin Neb for 7 more days as per ID Result Diagram: 06/08/18 0548 06/08/18 0548 Results 24hrs Laboratory Tests Test 06/08/18 05:48 White Blood Count 14.2 H Red Blood Count 3.21 L Hemoglobin 9.7 L Hematocrit 30.1 L Mean Corpuscular Volume 93.8 Mean Corpuscular Hemoglobin 30.2 Mean Corpuscular Hemoglobin Concent 32.2 Red Cell Distribution Width 15.9 H Platelet Count 151 # Mean Platelet Volume 11.3 H Immature Granulocytes % 0.600 H Neutrophils % 91.9 H Lymphocytes % 3.9 L Monocytes % 3.1 Eosinophils % 0.4 Basophils % 0.1 Nucleated Red Blood Cells % 0.0 Immature Granulocytes # 0.080 H Neutrophils # 13.0 H Lymphocytes # 0.6 L Monocytes # 0.4 Eosinophils # 0.1 Basophils # 0.0 Nucleated Red Blood Cells # 0.0 Prothrombin Time 14.1 Prothrombin Time Ratio 1.1 INR International Normalized Ratio 1.08 Activated Partial Thromboplast Time 35.1 H Sodium Level 143 Potassium Level 3.4 L Chloride Level 109 Carbon Dioxide Level 31 Anion Gap 3 L Blood Urea Nitrogen 23 H Creatinine 0.74 Est Glomerular Filtrat Rate mL/min Glucose Level 158 Calcium Level 9.8 Magnesium Level 2.0 Total Bilirubin 0.0 L Direct Bilirubin 0.00 Indirect Bilirubin 0.0 Aspartate Amino Transf (AST/SGOT) 20 Alanine Aminotransferase (ALT/SGPT) 17 Alkaline Phosphatase 81 Total Protein 5.9 L Albumin 2.6 L Globulin 3.30 H Albumin/Globulin Ratio 0.78 Subjective 24 Hr Interval Summary Free Text/Dictation more alert today- will d/c restraints now Exam/Review of Systems Vital Signs Vitals Vital Signs Date Temp Pulse Resp B/P (MAP) Pulse Ox O2 O2 Flow FiO2 Time Delivery Rate 06/08/18 98 5.0 28 15:55 06/08/18 76 16 Aerosol 15:55 06/08/18 98.3 130/60 15:41 (83) Intake and Output 06/07/18 06/07/18 06/08/18 1515:00 23:00 07:00 IntakeIntake Total 1600 ml 1370 ml OutputOutput Total 930 ml 3000 ml BalanceBalance 670 ml -1630 ml Exam Constitutional: alert, oriented (x2), other (Tracheostomy) Respiratory: normal air movement, other (Status post tracheostomy, on trach collar. 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 Mostly bedbound currently.) Medications Medications Current Medications Acetaminophen/ Hydrocodone Bitart (Lortab Liq) 15 ml TID PRN GTB PAIN; Start 1 07/29/17 at 15:30 Tamsulosin HCl (Flomax) 0.4 mg HS PO Last administered on 06/07/18at 20:47; Admin Dose 0.4 MG; Start 05/28/18 at 21:00 IV Flush (NS 3 ml) 3 ml PER PROTOCOL IV ; Start 05/28/18 at 15:30 Ondansetron HCl (Zofran Inj) 4 mg Q6H PRN IV NAUSEA AND/OR VOMITING; Start 05/28/18 at 15:30; Status Hold Acetaminophen (Tylenol Supp) 650 mg Q6H PRN [place] PAIN LEVEL 1-3 OR FEVER; Start 05/28/18 at 15:30 Bisacodyl (Dulcolax Supp) 10 mg DAILY PRN [place] CONSTIPATION; Start 05/28/18 at 15:30 Heparin Sodium (Porcine) (Heparin (5000 Units/1ml)) 5,000 unit Q8 SC Last administered on 06/08/18 06:38; Admin Dose 5,000 UNIT; Start 05/28/18 at 22:00 Levothyroxine Sodium (Synthroid) 100 mcg DAILY@06 GTB Last administered on 06/08/18 06:36; Admin Dose 100 MCG; Start 06/02/18 at 06:00 Caspofungin 50 mg/ Sodium Chloride 250 ml @ 250 mls/hr Q24H IVPB Last administered on 06/07/18 15:51; Admin Dose 250 MLS/HR; Start 06/03/18 at 16:00 Colistimethate Sodium (Colistin Inhal) 75 mg BID RESP THERAPY NEB Last administered on 06/08/18 16:04; Admin Dose 75 MG; Start 06/02/18 at 20:00 Potassium Chloride (Potassium Chloride Pwd/Soln) 40 meq DAILY GTB Last administered on 06/08/18 08:21; Admin Dose 40 MEQ; Start 06/03/18 at 11:00 Levofloxacin (Levaquin) 500 mg DAILY@06 GTB Last administered on 06/08/18 06:36; Admin Dose 500 MG; Start 06/05/18 at 06:00; Stop 06/15/18 at 05:59 Morphine Sulfate (morphine) 6 mg Q4H PRN GTB SEVERE PAIN LEVEL 7-10; Start 06/06/18 at 16:30 Famotidine (Pepcid) 20 mg Q12 GTB Last administered on 06/08/18 08:21; Admin Dose 20 MG; Start 06/06/18 at 21:00 AMANDA WHYTE MD Jun 08, 2018 16:33
[2018-06-08] MEDS: TAMSULOSIN (SR) 0.4 MG CAP PO SCH (20:46)
[2018-06-09] VITALS (12 sets, daily range): BP systolic 110–129; BP diastolic 58–66; PULSE 60–71; RESP 17–21
[2018-06-09] MEDS: LEVOFLOXACIN 500 MG TAB GTB SCH (05:34)
[2018-06-09] MEDS: LEVOTHYROXINE 100 MCG TAB GTB SCH (05:34)
[2018-06-09] MEDS: HEPARIN 5,000 UNIT/1 ML VIAL SC SCH ×3 (05:43→21:40)
[2018-06-09] MEDS: FAMOTIDINE 20 MG TAB GTB SCH ×2 (08:40→21:39)
[2018-06-09] MEDS: POTASSIUM CHLORIDE 20 MEQ POWDER FOR ORAL SOLN GTB SCH ×3 (08:41→15:44)
[2018-06-09] MEDS: morphine LIQ (10 MG/5 ML) CUP GTB PRN ×2 (08:45→15:55)
[2018-06-09] MEDS: COLISTIMETHATE (25 MG/ML INHAL SYG) NEB SCH ×2 (09:27→20:09)
--- NOTE | 2018-06-09 11:12 | PN ---
Date/Time of Note Date/Time of Note DATE: 06/09/18 TIME: 11:05 Assessment/Plan VTE Prophylaxis Risk score (from Nsg)>0 risk: 12 SCD applied (from Nsg): Yes Pharmacological prophylaxis: heparin Lines/Catheters IV Catheter Type (from Nrsg): PICC Line Central line still needed: Yes Urinary Cath still in place: Yes Reason Cath still needed: urinary retention Assessment/Plan Assessment/Plan 1. electrolyte disuturbances secondary to dysphagia anad dehydration, all but resolved, replete K (b) hyperCa of malignancy, s/p pamidronate, now normal 2.Health Care associated PNA, on IV colistin and Cancidan as per ID 2. peg in situ, tolerating well, cont 3. Leukocytosis, cont abx as per ID recs, likely malignancy a major contributor to leukocytosis 4. Hypothyroidism: Back to po Synthroid 100 mcg daily via PEG tube. Repeat TFTs in 4-6 weeks. 5. Laryngeal squamous cell carcinoma, follow up with [facility] oncology re: possible additional treatment, however, current clinical situation makes prognosis very grim 6. s/p trach, cont O2 supplementaiton adn pulm toilet 7. Encephalopathy, likely metabolic. Monitor mental status closely. 8. urinary retention?, plan remove milan when feasible 9. r/o picc associated thrombosis of L arm Prophylaxis: Heparin subcu for DVT prophylaxis, Pepcid for GI prophylaxis Disposition: to snf when restraints removed IV abx Cancidas and Colistin Neb through 06/14 per ID Result Diagram: 06/09/18 0458 06/09/18 0459 Results 24hrs Laboratory Tests Test 06/09/18 04:58 06/09/18 04:59 White Blood Count 13.5 H Red Blood Count 2.96 L Hemoglobin 9.1 L Hematocrit 28.1 L Mean Corpuscular Volume 94.9 Mean Corpuscular Hemoglobin 30.7 Mean Corpuscular Hemoglobin Concent 32.4 Red Cell Distribution Width 16.2 H Platelet Count 141 Mean Platelet Volume 11.6 H Immature Granulocytes % 0.500 H Neutrophils % 93.3 H Lymphocytes % 2.8 L Monocytes % 3.1 Eosinophils % 0.2 Basophils % 0.1 Nucleated Red Blood Cells % 0.0 Immature Granulocytes # 0.070 H Neutrophils # 12.6 H Lymphocytes # 0.4 L Monocytes # 0.4 Eosinophils # 0.0 Basophils # 0.0 Nucleated Red Blood Cells # 0.0 Prothrombin Time 14.2 Prothrombin Time Ratio 1.1 INR International Normalized Ratio 1.09 Activated Partial Thromboplast Time 35.6 H Sodium Level 143 Potassium Level 3.4 L Chloride Level 109 Carbon Dioxide Level 30 Anion Gap 4 L Blood Urea Nitrogen 22 H Creatinine 0.64 Est Glomerular Filtrat Rate mL/min Glucose Level 174 Calcium Level 9.7 Total Bilirubin 0.0 L Direct Bilirubin 0.00 Indirect Bilirubin 0.0 Aspartate Amino Transf (AST/SGOT) 19 Alanine Aminotransferase (ALT/SGPT) 18 Alkaline Phosphatase 72 Total Protein 5.8 L Albumin 2.6 L Globulin 3.20 Albumin/Globulin Ratio 0.81 Subjective 24 Hr Interval Summary Free Text/Dictation non verbal, barely arouseable Exam/Review of Systems Vital Signs Vitals Vital Signs Date Temp Pulse Resp B/P (MAP) Pulse Ox O2 O2 Flow FiO2 Time Delivery Rate 06/09/18 65 20 96 Aerosol 5.0 28 09:28 06/09/18 98.6 129/61 07:33 (83) Intake and Output 06/08/18 06/08/18 06/09/18 1515:00 23:00 07:00 IntakeIntake Total 1320 ml 1470 ml OutputOutput Total 100 ml 1000 ml BalanceBalance 1220 ml 470 ml Exam nad, large L sided neck mass apparent, extension of mass up to border of mandible and down chest wall with tumor and discoloration ctab ant soft nt, gastrostomy L arm edema, L arm picc Medications Medications Current Medications Acetaminophen/ Hydrocodone Bitart (Lortab Liq) 15 ml TID PRN GTB PAIN; Start 05/28/18 at 15:30 Tamsulosin HCl (Flomax) 0.4 mg HS PO Last administered on 06/08/18at 20:46; Admin Dose 0.4 MG; Start 05/28/18 at 21:00 IV Flush (NS 3 ml) 3 ml PER PROTOCOL IV ; Start 05/28/18 at 15:30 Ondansetron HCl (Zofran Inj) 4 mg Q6H PRN IV NAUSEA AND/OR VOMITING; Start 05/28/18 at 15:30; Status Hold Acetaminophen (Tylenol Supp) 650 mg Q6H PRN [place] PAIN LEVEL 1-3 OR FEVER; Start 05/28/18 at 15:30 Bisacodyl (Dulcolax Supp) 10 mg DAILY PRN [place] CONSTIPATION; Start 05/28/18 at 15:30 Heparin Sodium (Porcine) (Heparin (5000 Units/1ml)) 5,000 unit Q8 SC Last administered on 06/09/18 05:43; Admin Dose 5,000 UNIT; Start 05/28/18 at 22:00 Levothyroxine Sodium (Synthroid) 100 mcg DAILY@06 GTB Last administered on 06/09/18 05:34; Admin Dose 100 MCG; Start 06/02/18 at 06:00 Caspofungin 50 mg/ Sodium Chloride 250 ml @ 250 mls/hr Q24H IVPB Last administered on 06/08/18 16:29; Admin Dose 250 MLS/HR; Start 06/03/18 at 16:00 Colistimethate Sodium (Colistin Inhal) 75 mg BID RESP THERAPY NEB Last administered on 06/09/18 09:27; Admin Dose 75 MG; Start 06/02/18 at 20:00 Potassium Chloride (Potassium Chloride Pwd/Soln) 40 meq DAILY GTB Last administered on 06/09/18 08:41; Admin Dose 40 MEQ; Start 06/03/18 at 11:00 Levofloxacin (Levaquin) 500 mg DAILY@06 GTB Last administered on 06/09/18 05:34; Admin Dose 500 MG; Start 06/05/18 at 06:00; Stop 06/15/18 at 05:59 Morphine Sulfate (morphine) 6 mg Q4H PRN GTB SEVERE PAIN LEVEL 7-10 Last administered on 06/09/18 08:45; Admin Dose 6 MG; Start 06/06/18 at 16:30 Famotidine (Pepcid) 20 mg Q12 GTB Last administered on 06/09/18 08:40; Admin Dose 20 MG; Start 06/06/18 at 21:00 ENMA VALDES MD Jun 09, 2018 11:12
[2018-06-09] MEDS ORDERED: POTASSIUM CHLORIDE (SR) 20 MEQ TAB PO SCH (11:30)
[2018-06-09] MEDS: FINASTERIDE 5 MG TAB GTB SCH (12:34)
[2018-06-09] MEDS: CASPOFUNGIN 50 MG in SOD CHLORIDE 0.9% 250 ML IVPB SCH (15:44)
--- NOTE | 2018-06-09 19:38 | CONS ---
Date/Time of Note Date/Time of Note DATE: 06/09/18 TIME: 19:37 Assessment/Plan Assessment/Plan Hospital Course 1320 No acute changes overnight patient is lying comfortably in bed no fevers Microbiology: Endotracheal aspirate grew Klebsiella pneumonia Pseudomonas and Yue albicans Antimicrobials: Levofloxacin Cancidas Colistin inhalation Indwelling's: Trach PEG Bruns PICC line Physical examination: This is a chronically ill-appearing elderly man who is in no distress. Head atraumatic normocephalic sclera nonicteric. Neck is swollen, obese tracheostomy present. Chest rise symmetrical breath sounds diminished bases heart: S1-S2. Abdomen soft bowel sounds present. Extremities without cyanosis. Assessment: 1. S/p sepsis 2. Healthcare associated pneumonia 3. Invasive laryngeal cancer, status post tracheostomy 4. Dysphagia 5. Acute kidney injury 6. Encephalopathy Plan: Stable, continue antibiotics Result Diagram: 06/09/18 0458 06/09/18 0459 Results 24hrs Laboratory Tests Test 06/09/18 04:58 06/09/18 04:59 White Blood Count 13.5 H Red Blood Count 2.96 L Hemoglobin 9.1 L Hematocrit 28.1 L Mean Corpuscular Volume 94.9 Mean Corpuscular Hemoglobin 30.7 Mean Corpuscular Hemoglobin Concent 32.4 Red Cell Distribution Width 16.2 H Platelet Count 141 Mean Platelet Volume 11.6 H Immature Granulocytes % 0.500 H Neutrophils % 93.3 H Lymphocytes % 2.8 L Monocytes % 3.1 Eosinophils % 0.2 Basophils % 0.1 Nucleated Red Blood Cells % 0.0 Immature Granulocytes # 0.070 H Neutrophils # 12.6 H Lymphocytes # 0.4 L Monocytes # 0.4 Eosinophils # 0.0 Basophils # 0.0 Nucleated Red Blood Cells # 0.0 Prothrombin Time 14.2 Prothrombin Time Ratio 1.1 INR International Normalized Ratio 1.09 Activated Partial Thromboplast Time 35.6 H Sodium Level 143 Potassium Level 3.4 L Chloride Level 109 Carbon Dioxide Level 30 Anion Gap 4 L Blood Urea Nitrogen 22 H Creatinine 0.64 Est Glomerular Filtrat Rate mL/min Glucose Level 174 Calcium Level 9.7 Total Bilirubin 0.0 L Direct Bilirubin 0.00 Indirect Bilirubin 0.0 Aspartate Amino Transf (AST/SGOT) 19 Alanine Aminotransferase (ALT/SGPT) 18 Alkaline Phosphatase 72 Total Protein 5.8 L Albumin 2.6 L Globulin 3.20 Albumin/Globulin Ratio 0.81 Consultation Date/Type/Reason Admit Date/Time May 28, 2018 at 13:33 Initial Consult Date 05/29/18 Type of Consult id Exam/Review of Systems Vital Signs Vitals Vital Signs Date Temp Pulse Resp B/P (MAP) Pulse Ox O2 O2 Flow FiO2 Time Delivery Rate 06/09/18 97.9 62 18 110/62 97 19:35 (78) 06/09/18 Aerosol 5.0 28 17:25 Intake and Output 06/08/18 06/08/18 06/09/18 1515:00 23:00 07:00 IntakeIntake Total 1320 ml 1470 ml OutputOutput Total 100 ml 1000 ml BalanceBalance 1220 ml 470 ml Medications Medications Current Medications Acetaminophen/ Hydrocodone Bitart (Lortab Liq) 15 ml TID PRN GTB PAIN; Start 05/28/18 at 15:30 Tamsulosin HCl (Flomax) 0.4 mg HS PO Last administered on 06/08/18 20:46; Admin Dose 0.4 MG; Start 05/28/18 at 21:00 IV Flush (NS 3 ml) 3 ml PER PROTOCOL IV ; Start 05/28/18 at 15:30 Ondansetron HCl (Zofran Inj) 4 mg Q6H PRN IV NAUSEA AND/OR VOMITING; Start 05/28/18 at 15:30; Status Hold Acetaminophen (Tylenol Supp) 650 mg Q6H PRN [place] PAIN LEVEL 1-3 OR FEVER; Start 05/28/18 at 15:30 Bisacodyl (Dulcolax Supp) 10 mg DAILY PRN [place] CONSTIPATION; Start 05/28/18 at 15:30 Heparin Sodium (Porcine) (Heparin (5000 Units/1ml)) 5,000 unit Q8 SC Last administered on 06/09/18 15:57; Admin Dose 5,000 UNIT; Start 05/28/18 at 22:00 Levothyroxine Sodium (Synthroid) 100 mcg DAILY@06 GTB Last administered on 06/09/18 05:34; Admin Dose 100 MCG; Start 06/02/18 at 06:00 Caspofungin 50 mg/ Sodium Chloride 250 ml @ 250 mls/hr Q24H IVPB Last administered on 06/09/18 15:44; Admin Dose 250 MLS/HR; Start 06/03/18 at 16:00 Colistimethate Sodium (Colistin Inhal) 75 mg BID RESP THERAPY NEB Last administered on 06/09/18 09:27; Admin Dose 75 MG; Start 06/02/18 at 20:00 Potassium Chloride (Potassium Chloride Pwd/Soln) 40 meq DAILY GTB Last administered on 06/09/18 08:41; Admin Dose 40 MEQ; Start 06/03/18 at 11:00 Levofloxacin (Levaquin) 500 mg DAILY@06 GTB Last administered on 06/09/18 05:34; Admin Dose 500 MG; Start 06/05/18 at 06:00; Stop 06/15/18 at 05:59 Morphine Sulfate (morphine) 6 mg Q4H PRN GTB SEVERE PAIN LEVEL 7-10 Last administered on 06/09/18 15:55; Admin Dose 6 MG; Start 06/06/18 at 16:30 Famotidine (Pepcid) 20 mg Q12 GTB Last administered on 06/09/18 08:40; Admin Dose 20 MG; Start 06/06/18 at 21:00 Finasteride (Proscar) 5 mg DAILY GTB Last administered on 06/09/18 12:34; Admin Dose 5 MG; Start 06/09/18 at 11:30 PRASHANT PIERCE NP Jun 09, 2018 19:38
[2018-06-09] MEDS: TAMSULOSIN (SR) 0.4 MG CAP PO SCH (21:39)
[2018-06-10] VITALS (12 sets, daily range): BP systolic 113–136; BP diastolic 56–69; PULSE 60–84; RESP 17–18
[2018-06-10] MEDS: HEPARIN 5,000 UNIT/1 ML VIAL SC SCH ×3 (05:43→21:34)
[2018-06-10] MEDS: LEVOTHYROXINE 100 MCG TAB GTB SCH (05:43)
[2018-06-10] MEDS: LEVOFLOXACIN 500 MG TAB GTB SCH (05:43)
[2018-06-10] MEDS: FAMOTIDINE 20 MG TAB GTB SCH ×2 (08:44→21:27)
[2018-06-10] MEDS: morphine LIQ (10 MG/5 ML) CUP GTB PRN (08:44)
[2018-06-10] MEDS: FINASTERIDE 5 MG TAB GTB SCH (08:44)
[2018-06-10] MEDS: POTASSIUM CHLORIDE 20 MEQ POWDER FOR ORAL SOLN GTB SCH (08:44)
--- NOTE | 2018-06-10 08:49 | PN ---
Date/Time of Note Date/Time of Note DATE: 06/10/18 TIME: 08:45 Assessment/Plan VTE Prophylaxis Risk score (from Nsg)>0 risk: 6 SCD applied (from Nsg): Yes Pharmacological prophylaxis: heparin Lines/Catheters IV Catheter Type (from Nrsg): PICC Line Central line still needed: Yes Urinary Cath still in place: Yes Reason Cath still needed: urinary retention Assessment/Plan Assessment/Plan 1. electrolyte disuturbances secondary to dysphagia anad dehydration, all but resolved, replete phos, add PO phos (b) hyperCa of malignancy, s/p pamidronate, now calcium edging up, corrected Ca for albumin is fairly high check ionized, anticipate new pamidronate today 2.Health Care associated PNA, on IV colistin and Cancidan as per ID thorugh 06/14 2. peg in situ, tolerating well, cont 3. Leukocytosis, cont abx as per ID recs, likely malignancy a major contributor to leukocytosis 4. Hypothyroidism: Back to po Synthroid 100 mcg daily via PEG tube. Repeat TFTs in 4-6 weeks (around 07/12) 5. 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 s/p trach, cont O2 supplementaiton adn pulm toilet 7. Encephalopathy, likely metabolic. Monitor mental status closelymuch improved, now off restraints >36 hours 8. urinary retention?, plan remove milan when feasible, proscar started yest, cont flomax, plan trial of void in 1-2 days 9. r/o picc associated thrombosis of L arm-->us negative, edema Prophylaxis: Heparin subcu for DVT prophylaxis, Pepcid for GI prophylaxis Disposition: to snf when restraints removed IV abx Cancidas and Colistin Neb through 06/14 per ID Result Diagram: 06/10/18 0514 06/10/18 0514 Results 24hrs Laboratory Tests Test 06/10/18 05:14 White Blood Count 13.5 H Red Blood Count 3.02 L Hemoglobin 9.2 L Hematocrit 28.8 L Mean Corpuscular Volume 95.4 Mean Corpuscular Hemoglobin 30.5 Mean Corpuscular Hemoglobin Concent 31.9 L Red Cell Distribution Width 16.6 H Platelet Count 144 Mean Platelet Volume 11.4 H Immature Granulocytes % 0.400 Neutrophils % 93.3 H Lymphocytes % 2.7 L Monocytes % 3.0 Eosinophils % 0.4 Basophils % 0.2 Nucleated Red Blood Cells % 0.0 Immature Granulocytes # 0.060 H Neutrophils # 12.6 H Lymphocytes # 0.4 L Monocytes # 0.4 Eosinophils # 0.1 Basophils # 0.0 Nucleated Red Blood Cells # 0.0 Sodium Level 144 Potassium Level 3.9 Chloride Level 105 Carbon Dioxide Level 33 H Anion Gap 6 Blood Urea Nitrogen 22 H Creatinine 0.65 Est Glomerular Filtrat Rate mL/min Glucose Level 167 Calcium Level 10.1 Phosphorus Level 2.2 L Magnesium Level 2.0 Subjective 24 Hr Interval Summary Free Text/Dictation awake, off restraints for second day Exam/Review of Systems Vital Signs Vitals Vital Signs Date Temp Pulse Resp B/P (MAP) Pulse Ox O2 O2 Flow FiO2 Time Delivery Rate 06/10/18 98.3 64 17 128/58 100 07:33 (81) 06/10/18 5.0 28 04:15 06/10/18 Aerosol 04:15 Intake and Output 06/09/18 06/09/18 06/10/18 1515:00 23:00 07:00 IntakeIntake Total 1320 ml 1320 ml OutputOutput Total 1100 ml 1300 ml BalanceBalance 220 ml 20 ml Exam nad, mmm, large obvious tumor mass of L neck with likely cutaneous tumor infiltration of chest wall and neck, L arm edema persistent Medications Medications Current Medications Acetaminophen/ Hydrocodone Bitart (Lortab Liq) 15 ml TID PRN GTB PAIN; Start 05/28/18 at 15:30 Tamsulosin HCl (Flomax) 0.4 mg HS PO Last administered on 06/09/18at 21:39; Admin Dose 0.4 MG; Start 05/28/18 at 21:00 IV Flush (NS 3 ml) 3 ml PER PROTOCOL IV ; Start 05/28/18 at 15:30 Ondansetron HCl (Zofran Inj) 4 mg Q6H PRN IV NAUSEA AND/OR VOMITING; Start 05/28/18 at 15:30; Status Hold Acetaminophen (Tylenol Supp) 650 mg Q6H PRN [place] PAIN LEVEL 1-3 OR FEVER; Start 05/28/18 at 15:30 Bisacodyl (Dulcolax Supp) 10 mg DAILY PRN [place] CONSTIPATION; Start 05/28/18 at 15:30 Heparin Sodium (Porcine) (Heparin (5000 Units/1ml)) 5,000 unit Q8 SC Last administered on 06/10/18 05:43; Admin Dose 5,000 UNIT; Start 05/28/18 at 22:00 Levothyroxine Sodium (Synthroid) 100 mcg DAILY@06 GTB Last administered on 06/10/18 05:43; Admin Dose 100 MCG; Start 06/02/18 at 06:00 Caspofungin 50 mg/ Sodium Chloride 250 ml @ 250 mls/hr Q24H IVPB Last administered on 06/09/18 15:44; Admin Dose 250 MLS/HR; Start 06/03/18 at 16:00 Colistimethate Sodium (Colistin Inhal) 75 mg BID RESP THERAPY NEB Last administered on 06/09/18 20:09; Admin Dose 75 MG; Start 06/02/18 at 20:00 Potassium Chloride (Potassium Chloride Pwd/Soln) 40 meq DAILY GTB Last administered on 06/10/18 08:44; Admin Dose 40 MEQ; Start 06/03/18 at 11:00 Levofloxacin (Levaquin) 500 mg DAILY@06 GTB Last administered on 06/10/18 05:43; Admin Dose 500 MG; Start 06/05/18 at 06:00; Stop 06/15/18 at 05:59 Morphine Sulfate (morphine) 6 mg Q4H PRN GTB SEVERE PAIN LEVEL 7-10 Last administered on 06/10/18 08:44; Admin Dose 6 MG; Start 06/06/18 at 16:30 Famotidine (Pepcid) 20 mg Q12 GTB Last administered on 06/10/18 08:44; Admin Dose 20 MG; Start 06/06/18 at 21:00 Finasteride (Proscar) 5 mg DAILY GTB Last administered on 06/10/18 08:44; Admin Dose 5 MG; Start 06/09/18 at 11:30 Sodium Phosphate 15 mmol/Sodium Chloride 255 ml @ 63.75 mls/ hr ONCE ONCE IVPB ; Start 06/10/18 at 09:00; Stop 06/10/18 at 12:59; Status UNV Sodium Phosphate (Neutra-Phos) 250 mg BID GTB ; Start 06/10/18 at 09:00; Status UNV ENMA VALDES MD Jun 10, 2018 08:49
[2018-06-10] MEDS ORDERED: SODIUM PHOSPHATE 15 MMOL in SOD CHLORIDE 0.9% 250 ML IVPB ONE (10:00)
[2018-06-10] MEDS: NEUTRA-PHOS 250 MG PACKET GTB SCH ×2 (10:21→21:27)
[2018-06-10] MEDS: COLISTIMETHATE (25 MG/ML INHAL SYG) NEB SCH ×2 (10:39→20:12)
--- NOTE | 2018-06-10 13:34 | CONS ---
Date/Time of Note Date/Time of Note DATE: 06/10/18 TIME: 13:32 Assessment/Plan Assessment/Plan Result Diagram: 06/10/18 0514 06/10/18 0514 Results 24hrs Laboratory Tests Test 06/10/18 05:14 06/10/18 10:28 White Blood Count 13.5 H Red Blood Count 3.02 L Hemoglobin 9.2 L Hematocrit 28.8 L Mean Corpuscular Volume 95.4 Mean Corpuscular Hemoglobin 30.5 Mean Corpuscular Hemoglobin Concent 31.9 L Red Cell Distribution Width 16.6 H Platelet Count 144 Mean Platelet Volume 11.4 H Immature Granulocytes % 0.400 Neutrophils % 93.3 H Lymphocytes % 2.7 L Monocytes % 3.0 Eosinophils % 0.4 Basophils % 0.2 Nucleated Red Blood Cells % 0.0 Immature Granulocytes # 0.060 H Neutrophils # 12.6 H Lymphocytes # 0.4 L Monocytes # 0.4 Eosinophils # 0.1 Basophils # 0.0 Nucleated Red Blood Cells # 0.0 Sodium Level 144 Potassium Level 3.9 Chloride Level 105 Carbon Dioxide Level 33 H Anion Gap 6 Blood Urea Nitrogen 22 H Creatinine 0.65 Est Glomerular Filtrat Rate mL/min Glucose Level 167 Calcium Level 10.1 Phosphorus Level 2.2 L Magnesium Level 2.0 Ionized Calcium (Measured) 1.5 H Consultation Date/Type/Reason Admit Date/Time May 28, 2018 at 13:33 Initial Consult Date SUBJECTIVE: Patient is sleepy, looks comfortable, no fevers. VS: stable. T: 97.4 LABs:reviewed. WBC- 13.5 Microbiology: Endotracheal aspirate grew Klebsiella pneumonia Pseudomonas and Yue albicans Antimicrobials: Levofloxacin Cancidas Colistin inhalation Indwelling's: Trach PEG Burns PICC line Physical examination: GEN: This is a chronically ill-appearing elderly man who is in no distress. HENT: Head atraumatic normocephalic sclera nonicteric. Neck is swollen, obese tracheostomy present. PULM: Chest rise symmetrical breath sounds diminished bases HEART:RRR, S1-S2. Abdomen soft bowel sounds present. Extremities without cyanosis. Assessment: 1. S/p sepsis 2. Healthcare associated pneumonia 3. Invasive laryngeal cancer, status post tracheostomy 4. Dysphagia 5. Acute kidney injury 6. Encephalopathy Plan: Pt si stable. Will continue current antibiotics. Exam/Review of Systems Vital Signs Vitals Vital Signs Date Temp Pulse Resp B/P (MAP) Pulse Ox O2 O2 Flow FiO2 Time Delivery Rate 06/10/18 97.4 66 17 125/58 100 11:29 (80) 06/10/18 Aerosol 5.0 28 10:43 Intake and Output 06/09/18 06/09/18 06/10/18 1515:00 23:00 07:00 IntakeIntake Total 1320 ml 1320 ml OutputOutput Total 1100 ml 1300 ml BalanceBalance 220 ml 20 ml Medications Medications Current Medications Acetaminophen/ Hydrocodone Bitart (Lortab Liq) 15 ml TID PRN GTB PAIN; Start 05/28/18 at 15:30 Tamsulosin HCl (Flomax) 0.4 mg HS PO Last administered on 06/09/18 21:39; Admin Dose 0.4 MG; Start 05/28/18 at 21:00 IV Flush (NS 3 ml) 3 ml PER PROTOCOL IV ; Start 05/28/18 at 15:30 Ondansetron HCl (Zofran Inj) 4 mg Q6H PRN IV NAUSEA AND/OR VOMITING; Start 05/28/18 at 15:30; Status Hold Acetaminophen (Tylenol Supp) 650 mg Q6H PRN [place] PAIN LEVEL 1-3 OR FEVER; Start 05/28/18 at 15:30 Bisacodyl (Dulcolax Supp) 10 mg DAILY PRN [place] CONSTIPATION; Start 05/28/18 at 15:30 Heparin Sodium (Porcine) (Heparin (5000 Units/1ml)) 5,000 unit Q8 SC Last admi nistered on 06/10/18 05:43; Admin Dose 5,000 UNIT; Start 05/28/18 at 22:00 Levothyroxine Sodium (Synthroid) 100 mcg DAILY@06 GTB Last administered on 06/10/18 05:43; Admin Dose 100 MCG; Start 06/02/18 at 06:00 Caspofungin 50 mg/ Sodium Chloride 250 ml @ 250 mls/hr Q24H IVPB Last administered on 06/09/18 15:44; Admin Dose 250 MLS/HR; Start 06/03/18 at 16:00 Colistimethate Sodium (Colistin Inhal) 75 mg BID RESP THERAPY NEB Last administered on 06/10/18 10:39; Admin Dose 75 MG; Start 06/02/18 at 20:00 Potassium Chloride (Potassium Chloride Pwd/Soln) 40 meq DAILY GTB Last administered on 06/10/18 08:44; Admin Dose 40 MEQ; Start 06/03/18 at 11:00 Levofloxacin (Levaquin) 500 mg DAILY@06 GTB Last administered on 06/10/18 05:43; Admin Dose 500 MG; Start 06/05/18 at 06:00; Stop 06/15/18 at 05:59 Morphine Sulfate (morphine) 6 mg Q4H PRN GTB SEVERE PAIN LEVEL 7-10 Last administered on 06/10/18 08:44; Admin Dose 6 MG; Start 06/06/18 at 16:30 Famotidine (Pepcid) 20 mg Q12 GTB Last administered on 06/10/18 08:44; Admin Dose 20 MG; Start 06/06/18 at 21:00 Finasteride (Proscar) 5 mg DAILY GTB Last administered on 06/10/18 08:44; Admin Dose 5 MG; Start 06/09/18 at 11:30 Sodium Phosphate 15 mmol/Sodium Chloride 255 ml @ 63.75 mls/ hr ONCE ONCE IVPB Last administered on 06/10/18 10:21; Admin Dose 63.75 MLS/HR; Start 06/10/18 at 10:00; Stop 06/10/18 at 13:59 Sodium Phosphate (Neutra-Phos) 250 mg BID GTB Last administered on 06/10/18 10:21; Admin Dose 250 MG; Start 06/10/18 at 09:00 HARMONY RODRIGUEZ Jun 10, 2018 13:34
[2018-06-10] MEDS: CASPOFUNGIN 50 MG in SOD CHLORIDE 0.9% 250 ML IVPB SCH (17:23)
[2018-06-10] MEDS: TAMSULOSIN (SR) 0.4 MG CAP PO SCH (21:27)
[2018-06-11] VITALS (12 sets, daily range): BP systolic 112–136; BP diastolic 56–64; PULSE 61–92; RESP 18–20
[2018-06-11] MEDS ORDERED: ALBUTEROL 0.083% (NEB) 2.5 MG/3 ML AMP HHN PRN (00:30)
[2018-06-11] MEDS ORDERED: ALBUTEROL/IPRATROPIUM (NEB) 3 ML AMP ONE (00:56)
[2018-06-11] MEDS: ALBUTEROL/IPRATROPIUM (NEB) 3 ML AMP HHN SCH ×4 (01:01→20:57)
[2018-06-11] MEDS: morphine LIQ (10 MG/5 ML) CUP GTB PRN ×3 (01:15→21:45)
[2018-06-11] MEDS: LEVOFLOXACIN 500 MG TAB GTB SCH (06:08)
[2018-06-11] MEDS: LEVOTHYROXINE 100 MCG TAB GTB SCH (06:08)
[2018-06-11] MEDS: HEPARIN 5,000 UNIT/1 ML VIAL SC SCH ×3 (06:11→21:49)
[2018-06-11] MEDS: FINASTERIDE 5 MG TAB GTB SCH (09:11)
[2018-06-11] MEDS: POTASSIUM CHLORIDE 20 MEQ POWDER FOR ORAL SOLN GTB SCH (09:12)
[2018-06-11] MEDS: FAMOTIDINE 20 MG TAB GTB SCH ×2 (09:12→21:08)
[2018-06-11] MEDS: NEUTRA-PHOS 250 MG PACKET GTB SCH ×2 (09:12→21:08)
[2018-06-11] MEDS: COLISTIMETHATE (25 MG/ML INHAL SYG) NEB SCH ×2 (09:38→20:31)
--- NOTE | 2018-06-11 14:25 | CONS ---
Date/Time of Note Date/Time of Note DATE: 06/11/18 TIME: 14:24 Assessment/Plan Assessment/Plan Hospital Course No acute changes overnight patient is lying comfortably in bed no fevers Microbiology: Endotracheal aspirate grew Klebsiella pneumonia Pseudomonas and Yue albicans Antimicrobials: Levofloxacin Cancidas Colistin inhalation Indwelling's: Trach PEG Burns PICC line Physical examination: This is a chronically ill-appearing elderly man who is in no distress. Head atraumatic normocephalic sclera nonicteric. Neck is swollen, obese tracheostomy present. Chest rise symmetrical breath sounds diminished b ases heart: S1-S2. Abdomen soft bowel sounds present. Extremities without cyanosis. Assessment: 1. S/p sepsis 2. Healthcare associated pneumonia 3. Invasive laryngeal cancer, status post tracheostomy 4. Dysphagia 5. Acute kidney injury 6. Encephalopathy Plan: Remains stable, continue antibiotics Result Diagram: 06/11/18 0518 06/11/18 0500 Results 24hrs Laboratory Tests Test 06/11/18 05:00 06/11/18 05:18 06/11/18 05:19 Sodium Level 142 Potassium Level 3.8 Chloride Level 104 Carbon Dioxide Level 32 H Anion Gap 6 Blood Urea Nitrogen 23 H Creatinine 0.63 Est Glomerular Filtrat Rate mL/min Glucose Level 156 Calcium Level 9.8 Phosphorus Level 2.8 Magnesium Level 2.0 White Blood Count 13.5 H Red Blood Count 2.66 L Hemoglobin 8.2 L Hematocrit 25.5 L Mean Corpuscular Volume 95.9 Mean Corpuscular Hemoglobin 30.8 Mean Corpuscular Hemoglobin Concent 32.2 Red Cell Distribution Width 16.1 H Platelet Count 146 Mean Platelet Volume 11.2 H Immature Granulocytes % 0.400 Neutrophils % 93.5 H Lymphocytes % 2.3 L Monocytes % 3.6 Eosinophils % 0.1 Basophils % 0.1 Nucleated Red Blood Cells % 0.0 Immature Granulocytes # 0.060 H Neutrophils # 12.6 H Lymphocytes # 0.3 L Monocytes # 0.5 Eosinophils # 0.0 Basophils # 0.0 Nucleated Red Blood Cells # 0.0 Ionized Calcium (Measured) 1.4 Consultation Date/Type/Reason Admit Date/Time May 28, 2018 at 13:33 Initial Consult Date 05/29/18 Type of Consult id Exam/Review of Systems Vital Signs Vitals Vital Signs Date Temp Pulse Resp B/P (MAP) Pulse Ox O2 O2 Flow FiO2 Time Delivery Rate 06/11/18 68 20 100 Aerosol 10.0 40 13:42 06/11/18 98.3 133/64 12:06 (87) Intake and Output 06/10/18 06/10/18 06/11/18 1515:00 23:00 07:00 IntakeIntake Total 1570 ml 1520 ml OutputOutput Total 1000 ml 1100 ml BalanceBalance 570 ml 420 ml Medications Medications Current Medications Acetaminophen/ Hydrocodone Bitart (Lortab Liq) 15 ml TID PRN GTB PAIN; Start 05/28/18 at 15:30 Tamsulosin HCl (Flomax) 0.4 mg HS PO Last administered on 06/10/18 21:27; Admin Dose 0.4 MG; Start 05/28/18 at 21:00 IV Flush (NS 3 ml) 3 ml PER PROTOCOL IV ; Start 05/28/18 at 15:30 Ondansetron HCl (Zofran Inj) 4 mg Q6H PRN IV NAUSEA AND/OR VOMITING; Start 05/28/18 at 15:30; Status Hold Acetaminophen (Tylenol Supp) 650 mg Q6H PRN [place] PAIN LEVEL 1-3 OR FEVER; Start 05/28/18 at 15:30 Bisacodyl (Dulcolax Supp) 10 mg DAILY PRN [place] CONSTIPATION; Start 05/28/18 at 15:30 Heparin Sodium (Porcine) (Heparin (5000 Units/1ml)) 5,000 unit Q8 SC Last administered on 06/11/18 06:11; Admin Dose 5,000 UNIT; Start 05/28/18 at 22:00 Levothyroxine Sodium (Synthroid) 100 mcg DAILY@06 GTB Last administered on 06/11/18 06:08; Admin Dose 100 MCG; Start 06/02/18 at 06:00 Caspofungin 50 mg/ Sodium Chloride 250 ml @ 250 mls/hr Q24H IVPB Last administered on 06/10/18 17:23; Admin Dose 250 MLS/HR; Start 06/03/18 at 16:00 Colistimethate Sodium (Colistin Inhal) 75 mg BID RESP THERAPY NEB Last administered on 06/11/18 09:38; Admin Dose 75 MG; Start 06/02/18 at 20:00 Potassium Chloride (Potassium Chloride Pwd/Soln) 40 meq DAILY GTB Last administered on 06/11/18 09:12; Admin Dose 40 MEQ; Start 06/03/18 at 11:00 Levofloxacin (Levaquin) 500 mg DAILY@06 GTB Last administered on 06/11/18 06:08; Admin Dose 500 MG; Start 06/05/18 at 06:00; Stop 06/15/18 at 05:59 Morphine Sulfate (morphine) 6 mg Q4H PRN GTB SEVERE PAIN LEVEL 7-10 Last administered on 06/11/18 09:34; Admin Dose 6 MG; Start 06/06/18 at 16:30 Famotidine (Pepcid) 20 mg Q12 GTB Last administered on 06/11/18 09:12; Admin Dose 20 MG; Start 06/06/18 at 21:00 Finasteride (Proscar) 5 mg DAILY GTB Last administered on 06/11/18 09:11; Admin Dose 5 MG; Start 06/09/18 at 11:30 Sodium Phosphate (Neutra-Phos) 250 mg BID GTB Last administered on 06/11/18 09:12; Admin Dose 250 MG; Start 06/10/18 at 09:00 Albuterol/ Ipratropium (Duoneb) 3 ml Q6H RESP THERAPY HHN Last administered on 06/11/18 13:41; Admin Dose 3 ML; Start 06/11/18 at 02:00 Albuterol (Proventil 0.083% (Neb)) 2.5 mg Q4H RESP THERAPY PRN HHN SHORTNESS OF BREATH; Start 06/11/18 at 00:30 PRASHANT PIERCE NP Jun 11, 2018 14:25
[2018-06-11] MEDS: CASPOFUNGIN 50 MG in SOD CHLORIDE 0.9% 250 ML IVPB SCH (16:18)
--- NOTE | 2018-06-11 17:14 | PN ---
Date/Time of Note Date/Time of Note DATE: 06/11/18 TIME: 17:13 Assessment/Plan VTE Prophylaxis Risk score (from Ns)>0 risk: 6 SCD applied (from Ns): Yes Pharmacological prophylaxis: heparin Lines/Catheters IV Catheter Type (from Nrsg): PICC Line Central line still needed: Yes Urinary Cath still in place: Yes Reason Cath still needed: urinary retention Assessment/Plan Hospital Course 77 m with laryngeal cancer s/p tracheostomy s/p radiation PW severe electrolyte abnormalities in the setting of poor PO intake due to severe dysphagia as complication of laryngeal ca with possible recurrence . His course of hospitalization was significant for healthcare pneumonia . Respiratory cultures were positive for kenna K pneumonia and pseudomonas. He was been hypoxemic and is requiring 40 % O2 to maintain satisfactory oxygenation. He received a PEG on this admission 1. Levaquin + Colistin inha and Caspofungin for HCAP 2. Supplemental O2 and wean as tolerated , Nebulizer treatment , CXR given acute on chronic respiratory failure , continue vent support 3. Outpatient follow up with [facility] [place]aryngeal ca for possible recurrence 3. Continue tube feeding vi PEG 4. CM for Neal PPX: Pepcid and heparin Result Diagram: 06/11/18 0518 06/11/18 0500 Results 24hrs Laboratory Tests Test 06/11/18 05:00 06/11/18 05:18 06/11/18 05:19 Sodium Level 142 Potassium Level 3.8 Chloride Level 104 Carbon Dioxide Level 32 H Anion Gap 6 Blood Urea Nitrogen 23 H Creatinine 0.63 Est Glomerular Filtrat Rate mL/min Glucose Level 156 Calcium Level 9.8 Phosphorus Level 2.8 Magnesium Level 2.0 White Blood Count 13.5 H Red Blood Count 2.66 L Hemoglobin 8.2 L Hematocrit 25.5 L Mean Corpuscular Volume 95.9 Mean Corpuscular Hemoglobin 30.8 Mean Corpuscular Hemoglobin Concent 32.2 Red Cell Distribution Width 16.1 H Platelet Count 146 Mean Platelet Volume 11.2 H Immature Granulocytes % 0.400 Neutrophils % 93.5 H Lymphocytes % 2.3 L Monocytes % 3.6 Eosinophils % 0.1 Basophils % 0.1 Nucleated Red Blood Cells % 0.0 Immature Granulocytes # 0.060 H Neutrophils # 12.6 H Lymphocytes # 0.3 L Monocytes # 0.5 Eosinophils # 0.0 Basophils # 0.0 Nucleated Red Blood Cells # 0.0 Ionized Calcium (Measured) 1.4 Subjective 24 Hr Interval Summary Free Text/Dictation complians of neck discomfort Exam/Review of Systems Vital Signs Vitals Vital Signs Date Temp Pulse Resp B/P (MAP) Pulse Ox O2 O2 Flow FiO2 Time Delivery Rate 06/11/18 98.4 75 18 114/56 99 16:09 (75) 06/11/18 Aerosol 10.0 40 13:42 Intake and Output 06/10/18 06/10/18 06/11/18 1515:00 23:00 07:00 IntakeIntake Total 1570 ml 1520 ml OutputOutput Total 1000 ml 1100 ml BalanceBalance 570 ml 420 ml Exam General: In no acute distress , laying in bed watching TV , cooperative , pleasant HEENT, EOM intact, JOHN bilat, mucosal membranes moist and pink , NECK : Supple , not stiffness , severe soft tissue inflammation around the tracheostomy site Core: S1, S2, NL rate and rhythm, no murmur, no rubs, JVD not elevated, no peripheral edema Lungs: in no respiratory distress, , no wheezing , normal inspiratory to expira tory ratio Abdomen, soft, not distended, normal bowel sounds, no tenderness, Extremities without : edema , cyanosis, calf tenderness, brisk capillary refill Neurological: AOx3, normal speech, CN2-12 intact, no motor or sensory deficit, Medications Medications Current Medications Acetaminophen/ Hydrocodone Bitart (Lortab Liq) 15 ml TID PRN GTB PAIN; Start 05/28/18 at 15:30 Tamsulosin HCl (Flomax) 0.4 mg HS PO Last administered on 06/10/18at 21:27; Admin Dose 0.4 MG; Start 05/28/18 at 21:00 IV Flush (NS 3 ml) 3 ml PER PROTOCOL IV ; Start 05/28/18 at 15:30 Ondansetron HCl (Zofran Inj) 4 mg Q6H PRN IV NAUSEA AND/OR VOMITING; Start at 15:30; Status Hold Acetaminophen (Tylenol Supp) 650 mg Q6H PRN [place] PAIN LEVEL 1-3 OR FEVER; Start 05/28/18 at 15:30 Bisacodyl (Dulcolax Supp) 10 mg DAILY PRN [place] CONSTIPATION; Start 05/28/18 at 15:30 Heparin Sodium (Porcine) (Heparin (5000 Units/1ml)) 5,000 unit Q8 SC Last administered on 06/11/18 16:25; Admin Dose 5,000 UNIT; Start 05/28/18 at 22:00 Levothyroxine Sodium (Synthroid) 100 mcg DAILY@06 GTB Last administered on 06/11/18 06:08; Admin Dose 100 MCG; Start 06/02/18 at 06:00 Caspofungin 50 mg/ Sodium Chloride 250 ml @ 250 mls/hr Q24H IVPB Last administered on 06/11/18 16:18; Admin Dose 250 MLS/HR; Start 06/03/18 at 16:00 Colistimethate Sodium (Colistin Inhal) 75 mg BID RESP THERAPY NEB Last administered on 06/11/18 09:38; Admin Dose 75 MG; Start 06/02/18 at 20:00 Potassium Chloride (Potassium Chloride Pwd/Soln) 40 meq DAILY GTB Last administered on 06/11/18 09:12; Admin Dose 40 MEQ; Start 06/03/18 at 11:00 Levofloxacin (Levaquin) 500 mg DAILY@06 GTB Last administered on 06/11/18 06:08; Admin Dose 500 MG; Start 06/05/18 at 06:00; Stop 06/15/18 at 05:59 Morphine Sulfate (morphine) 6 mg Q4H PRN GTB SEVERE PAIN LEVEL 7-10 Last administered on 06/11/18 09:34; Admin Dose 6 MG; Start 06/06/18 at 16:30 Famotidine (Pepcid) 20 mg Q12 GTB Last administered on 06/11/18 09:12; Admin Dose 20 MG; Start 06/06/18 at 21:00 Finasteride (Proscar) 5 mg DAILY GTB Last administered on 06/11/18 09:11; Admin Dose 5 MG; Start 06/09/18 at 11:30 Sodium Phosphate (Neutra-Phos) 250 mg BID GTB Last administered on 06/11/18 09:12; Admin Dose 250 MG; Start 06/10/18 at 09:00 Albuterol/ Ipratropium (Duoneb) 3 ml Q6H RESP THERAPY HHN Last administered on 06/11/18 13:41; Admin Dose 3 ML; Start 06/11/18 at 02:00 Albuterol (Proventil 0.083% (Neb)) 2.5 mg Q4H RESP THERAPY PRN HHN SHORTNESS OF BREATH; Start 06/11/18 at 00:30 YUDY TALAMANTES MD Jun 11, 2018 17:14
[2018-06-11] MEDS: TAMSULOSIN (SR) 0.4 MG CAP PO SCH (21:08)
[2018-06-12] VITALS (12 sets, daily range): BP systolic 105–130; BP diastolic 53–62; PULSE 67–83; RESP 18–19
[2018-06-12] MEDS: ALBUTEROL/IPRATROPIUM (NEB) 3 ML AMP HHN SCH ×4 (01:32→20:46)
[2018-06-12] MEDS: LEVOFLOXACIN 500 MG TAB GTB SCH (06:03)
[2018-06-12] MEDS: LEVOTHYROXINE 100 MCG TAB GTB SCH (06:03)
[2018-06-12] MEDS: morphine LIQ (10 MG/5 ML) CUP GTB PRN ×4 (06:19→21:08)
[2018-06-12] MEDS: HEPARIN 5,000 UNIT/1 ML VIAL SC SCH ×3 (06:32→22:14)
[2018-06-12] MEDS: COLISTIMETHATE (25 MG/ML INHAL SYG) NEB SCH ×2 (08:41→20:46)
[2018-06-12] MEDS: FAMOTIDINE 20 MG TAB GTB SCH ×2 (09:19→21:05)
[2018-06-12] MEDS: NEUTRA-PHOS 250 MG PACKET GTB SCH ×2 (09:19→21:05)
[2018-06-12] MEDS: POTASSIUM CHLORIDE 20 MEQ POWDER FOR ORAL SOLN GTB SCH (09:19)
[2018-06-12] MEDS: FINASTERIDE 5 MG TAB GTB SCH (09:19)
[2018-06-12] MEDS ORDERED: IPRA3AMP29 HHN (11:06)
[2018-06-12] MEDS ORDERED: LEVO500T48 GTB (11:06)
[2018-06-12] MEDS ORDERED: ALBU2.5V3 HHN (11:06)
[2018-06-12] MEDS ORDERED: LEVO100T82 PO (11:06)
[2018-06-12] MEDS ORDERED: POTA20PA23 GTB (11:06)
[2018-06-12] MEDS ORDERED: Bisacodyl Supp PR (11:06)
[2018-06-12] MEDS ORDERED: FAMO20TA18 GTB (11:06)
[2018-06-12] MEDS ORDERED: NEUTPHOS GTB (11:06)
[2018-06-12] MEDS ORDERED: TYL650R PR (11:06)
[2018-06-12] MEDS ORDERED: HEPA50002 SC (11:06)
[2018-06-12] MEDS ORDERED: FINA5TAB4 GTB (11:06)
[2018-06-12] MEDS ORDERED: COLI150V7 NEB (11:06)
--- NOTE | 2018-06-12 15:10 | CONS ---
Date/Time of Note Date/Time of Note DATE: 06/12/18 TIME: 15:09 Assessment/Plan Assessment/Plan Hospital Course No acute changes overnight patient is lying comfortably in bed no fevers WBC 12.4 H&H 8 and 25.1 platelets 157 neutrophils 92.6 BUN 22 creatinine 0.62 Chest x-ray this morning revealed improved aeration of both lungs with residual bibasilar atelectasis/infiltrates Microbiology: Endotracheal aspirate grew Klebsiella pneumonia Pseudomonas and Yue albicans Antimicrobials: Levofloxacin Cancidas Colistin inhalation Indwelling's: Trach PEG Burns PICC line Physical examination: This is a chronically ill-appearing elderly man who is in no distress. Head atraumatic normocephalic sclera nonicteric. Neck is swollen, obese tracheostomy present. Chest rise symmetrical breath sounds diminished bases heart: S1-S2. Abdomen soft bowel sounds present. Extremities without cyanosis. Assessment: 1. S/p sepsis 2. Healthcare associated pneumonia 3. Invasive laryngeal cancer, status post tracheostomy 4. Dysphagia 5. Acute kidney injury 6. Encephalopathy Plan: Continues to improve, completing antibiotics Result Diagram: 06/12/18 0453 06/12/18 0453 Results 24hrs Laboratory Tests Test 06/12/18 04:53 White Blood Count 12.4 H Red Blood Count 2.63 L Hemoglobin 8.0 L Hematocrit 25.1 L Mean Corpuscular Volume 95.4 Mean Corpuscular Hemoglobin 30.4 Mean Corpuscular Hemoglobin Concent 31.9 L Red Cell Distribution Width 16.7 H Platelet Count 157 Mean Platelet Volume 10.6 H Immature Granulocytes % 0.500 H Neutrophils % 92.6 H Lymphocytes % 2.5 L Monocytes % 3.9 Eosinophils % 0.3 Basophils % 0.2 Nucleated Red Blood Cells % 0.0 Immature Granulocytes # 0.060 H Neutrophils # 11.5 H Lymphocytes # 0.3 L Monocytes # 0.5 Eosinophils # 0.0 Basophils # 0.0 Nucleated Red Blood Cells # 0.0 Sodium Level 141 Potassium Level 3.7 Chloride Level 104 Carbon Dioxide Level 33 H Anion Gap 4 L Blood Urea Nitrogen 22 H Creatinine 0.62 Est Glomerular Filtrat Rate mL/min Glucose Level 144 Calcium Level 10.1 Phosphorus Level 2.6 Magnesium Level 2.0 Total Bilirubin 0.0 L Direct Bilirubin 0.00 Indirect Bilirubin 0.0 Aspartate Amino Transf (AST/SGOT) 20 Alanine Aminotransferase (ALT/SGPT) 14 Alkaline Phosphatase 73 Total Protein 5.5 L Albumin 2.6 L Globulin 2.90 Albumin/Globulin Ratio 0.89 Consultation Date/Type/Reason Admit Date/Time May 28, 2018 at 13:33 Initial Consult Date 05/29/18 Type of Consult id Exam/Review of Systems Vital Signs Vitals Vital Signs Date Temp Pulse Resp B/P (MAP) Pulse Ox O2 O2 Flow FiO2 Time Delivery Rate 06/12/18 71 20 100 Aerosol 5.0 28 13:54 Mask 06/12/18 98.2 123/57 11:05 (79) Intake and Output 06/11/18 06/11/18 06/12/18 1515:00 23:00 07:00 IntakeIntake Total 1720 ml 1320 ml OutputOutput Total 1350 ml 800 ml BalanceBalance 370 ml 520 ml Medications Medications Current Medications Acetaminophen/ Hydrocodone Bitart (Lortab Liq) 15 ml TID PRN GTB PAIN; Start 05/28/18 at 15:30 Tamsulosin HCl (Flomax) 0.4 mg HS PO Last administered on 06/11/18 21:08; Admin Dose 0.4 MG; Start 05/28/18 at 21:00 IV Flush (NS 3 ml) 3 ml PER PROTOCOL IV ; Start 05/28/18 at 15:30 Ondansetron HCl (Zofran Inj) 4 mg Q6H PRN IV NAUSEA AND/OR VOMITING; Start 05/28/18 at 15:30; Status Hold Acetaminophen (Tylenol Supp) 650 mg Q6H PRN [place] PAIN LEVEL 1-3 OR FEVER; Start 05/28/18 at 15:30 Bisacodyl (Dulcolax Supp) 10 mg DAILY PRN [place] CONSTIPATION Last administered on 06/12/18 03:35; Admin Dose 10 MG; Start 05/28/18 at 15:30 Heparin Sodium (Porcine) (Heparin (5000 Units/1ml)) 5,000 unit Q8 SC Last administered on 06/12/18 13:17; Admin Dose 5,000 UNIT; Start 05/28/18 at 22:00 Levothyroxine Sodium (Synthroid) 100 mcg DAILY@06 GTB Last administered on 06/12/18 06:03; Admin Dose 100 MCG; Start 06/02/18 at 06:00 Caspofungin 50 mg/ Sodium Chloride 250 ml @ 250 mls/hr Q24H IVPB Last administered on 06/11/18 16:18; Admin Dose 250 MLS/HR; Start 06/03/18 at 16:00 Colistimethate Sodium (Colistin Inhal) 75 mg BID RESP THERAPY NEB Last administered on 06/12/18 08:41; Admin Dose 75 MG; Start 06/02/18 at 20:00 Potassium Chloride (Potassium Chloride Pwd/Soln) 40 meq DAILY GTB Last administered on 06/12/18 09:19; Admin Dose 40 MEQ; Start 06/03/18 at 11:00 Levofloxacin (Levaquin) 500 mg DAILY@06 GTB Last administered on 06/12/18 06:03; Admin Dose 500 MG; Start 06/05/18 at 06:00; Stop 06/15/18 at 05:59 Morphine Sulfate (morphine) 6 mg Q4H PRN GTB SEVERE PAIN LEVEL 7-10 Last administered on 06/12/18 13:02; Admin Dose 6 MG; Start 06/06/18 at 16:30 Famotidine (Pepcid) 20 mg Q12 GTB Last administered on 06/12/18 09:19; Admin Dose 20 MG; Start 06/06/18 at 21:00 Finasteride (Proscar) 5 mg DAILY GTB Last administered on 06/12/18 09:19; Admin Dose 5 MG; Start 06/09/18 at 11:30 Sodium Phosphate (Neutra-Phos) 250 mg BID GTB Last administered on 06/12/18 09:19; Admin Dose 250 MG; Start 06/10/18 at 09:00 Albuterol/ Ipratropium (Duoneb) 3 ml Q6H RESP THERAPY HHN Last administered on 06/12/18 13:53; Admin Dose 3 ML; Start 06/11/18 at 02:00 Albuterol (Proventil 0.083% (Neb)) 2.5 mg Q4H RESP THERAPY PRN HHN SHORTNESS OF BREATH; Start 06/11/18 at 00:30 PRASHANT PIERCE NP Jun 12, 2018 15:10
[2018-06-12] MEDS: CASPOFUNGIN 50 MG in SOD CHLORIDE 0.9% 250 ML IVPB SCH (15:48)
--- NOTE | 2018-06-12 17:46 | DS ---
DATE OF ADMISSION: 05/28/2018 DATE OF DISCHARGE: 06/13/2018 DISCHARGE DIAGNOSES: 1. Healthcare-associated Pseudomonas pneumonia. 2. Fungal pneumonia. 3. Laryngeal cancer, status post radiation therapy and chemotherapy. 4. [id number] respiratory failure. 5. Status post percutaneous endoscopic gastrostomy placement. 6. Electrolyte derangement, resolved. HOSPITAL COURSE: A 77-year-old unfortunate male with extensive laryngeal cancer status post chemothe rapy and radiation therapy, presented with shortness of breath and electrolyte derangement. The geeta ent was diagnosed with Pseudomonas and fungal pneumonia. He was placed on antifungal and Levaquin. He was seen in consultation by Infectious Disease specialist. His condition improved somewhat during the hospital. At this point, he is stable for transition to subacute facility. The patient is awai ting evaluation by Ángel. His condition has remained stable. PLAN: Discharged to subacute facility. MEDICATIONS ON DISCHARGE: 1. DuoNeb per nebulizer q.4 hours. 2. Finasteride 5 mg daily. 3. Pepcid 20 mg b.i.d. 4. Levaquin 500 mg daily. 5. Caspofungin 50 mg IV piggyback daily. 6. Potassium chloride 40 mEq daily. 7. Levothyroxine 100 mcg daily. 8. Flomax 0.4 mg daily. 9. [place] as needed. The patient is awaiting further evaluation at the [facility] regarding management of his laryngeal cancer . Dictated By: JARVIS CHOPRA/NTS Conf#: [id number] DID#: [id number] CC: CHRISTIANO RIVERS MD;*End*
[2018-06-12] MEDS: TAMSULOSIN (SR) 0.4 MG CAP PO SCH (21:05)
== END 2018-06-13 00:18 | DRG 871 ==
LOC: E/R 10:30 → 6WM 13:33
PROVIDERS: ADMIT Internal Medicine; ATTEND Internal Medicine
PROC: 3E0F7GC Introduction of Other Therapeutic Substance into Respiratory Tract, Via Natural or Artificial Opening (ICD-10-PCS; 2018-05-28)
PROC: 02HV33Z Insertion of Infusion Device into Superior Vena Cava, Percutaneous Approach (ICD-10-PCS; 2018-05-29)
PROC: 0DH63UZ Insertion of Feeding Device into Stomach, Percutaneous Approach (ICD-10-PCS; principal; 2018-05-30 16:00)
DX: A41.9 Sepsis, unspecified organism (principal); J69.0 Pneumonitis due to inhalation of food and vomit; J96.21 Acute and chronic respiratory failure with hypoxia; E43 Unspecified severe protein-calorie malnutrition; G93.41 Metabolic encephalopathy; B37.1 Pulmonary candidiasis; J15.1 Pneumonia due to Pseudomonas; N17.9 Acute kidney failure, unspecified; E87.0 Hyperosmolality and hypernatremia; D68.9 Coagulation defect, unspecified; R65.20 Severe sepsis without septic shock; C32.9 Malignant neoplasm of larynx, unspecified; E86.0 Dehydration; E87.6 Hypokalemia; E83.42 Hypomagnesemia; E83.39 Other disorders of phosphorus metabolism; E83.52 Hypercalcemia; E03.9 Hypothyroidism, unspecified; R13.10 Dysphagia, unspecified; Z93.0 Tracheostomy status; Z68.20 Body mass index [BMI] 20.0-20.9, adult; Z87.891 Personal history of nicotine dependence
CPT/HCPCS: 36569; 36600; 70450; 70491; 71045; 71260; 76937; 80048; 80053; 80202; 81001; 82330; 82550; 82553; 82803; 82962; 83605; 83735; 84100; 84132; 84134; 84439; 84443; 84484; 84560; 85025; 85610; 85730; 87040; 87070; 87081; 87086; 89220; 92610; 93005; 93971; 94640; 94664; 96374; 96375; 97110; 97163; 97530; J2430; J0690; J0692; J1644; J2274; J2543; J2997; J3370; J3475; J3480; J7030; J7040; J7050; J7070; Q9967